=== PATIENT | male | born 1950 | race Caucasian/White ===

== ENCOUNTER 2016-10-05 20:55 | Inpatient (IN) | payer OTHER ==
[2016-10-05 21:17] VITALS: BMI 25.7
--- NOTE | 2016-10-05 21:47 | PDOC ---
History of Present Illness - General History Source: Patient, Family Exam Limitations: No Limitations - History of Present Illness Initial Comments: 10/05/16 22:06 The patient is a 66 year old male with a significant past medical history of diabetes, hypertension, stents and pacemaker, presenting to the Emergency Department with right sided facial numbness for two days. The patients daughter reports that the patient started experiencing numbness to the right side. She reports that she noticed a right side facial droop when speaking to him today. She also reports that the patient states that food gets stuck in his right cheek when eating. The patients daughter admits that he was diagnosed with Pen[place] Palsy about 5 years ago. The patient denies right sided extremity weakness. Patient denies blurry vision , or visual changes. Patient denies headache, dizziness, and syncope. Patient denies numbness or tingling to the extremities. Patient denies nausea, vomiting , and diarrhea. Patient denies cough, fever, and chills. <Michelle Claire - Last Filed: 10/06/16 00:18> <Ludivina Abreu - Last Filed: 10/07/16 04:07> - General Chief Complaint: CVA/TIA Stated Complaint: RT SIDE FACE NUMB Time Seen by Provider: 10/05/16 21:35 Past History <Michelle Claire - Last Filed: 10/06/16 00:18> - Past Medical History Anemia: Yes Asthma: No Cancer: No Cardiac Disorders: No (UNSURE IF HAS STENT, HAS HAD CARD CATH) CVA: No COPD: No CHF: No Dementia: No Diabetes: Yes GI Disorders: No Disorders: No HTN: Yes Hypercholesterolemia: Yes Liver Disease: No Seizures: No Thyroid Disease: No - Surgical History Abdominal Surgery: No Appendectomy: No Cardiac Surgery: No (CARD CATH TIMES TWO ? STENT) Cholecystectomy: No Lung Surgery: No Neurologic Surgery: No Orthopedic Surgery: No - Psycho/Social/Smoking Cessation Hx Suicidal Ideation: No Smoking History: Never smoked Have you smoked in the past 12 months: No Information on smoking cessation initiated: No Hx Alcohol Use: No Drug/Substance Use Hx: No Substance Use Type: None Hx Substance Use Treatment: No <Ludivina Abreu - Last Filed: 10/07/16 04:07> - Past Medical History Allergies/Adverse Reactions: Allergies Allergy/AdvReac Type Severity Reaction Status Date / Time No Known Drug Allergies Allergy Verified 10/05/16 20:57 Home Medications: Ambulatory Orders Aspirin [ASA -] 81 mg PO DAILY 10/06/16 Fludrocortisone Acetate 0.1 mg PO BID 10/06/16 Insulin Glargine,Hum.rec.anlog [Lantus Solostar PEN (NF)] 40 units SQ HS Linagliptin [Tradjenta] 5 mg PO ONCE 10/06/16 Rosuvastatin Calcium [Crestor] 40 mg PO HS 10/06/16 Tamsulosin HCl [Flomax] 0.4 mg PO ONCE 10/06/16 Review of Systems - Review of Systems Able to Perform ROS?: Yes Comments:: 10/05/16 22:06 GENERAL/CONSTITUTIONAL: No fever or chills. No weakness. HEAD, EYES, EARS, NOSE AND THROAT: + right sided facial numbness, + right sided facial droop. No change in vision. No ear pain or discharge. No sore throat. CARDIOVASCULAR: No chest pain or shortness of breath. RESPIRATORY: No cough, wheezing, or hemoptysis. GASTROINTESTINAL: No nausea, vomiting, diarrhea or constipation. GENITOURINARY: No dysuria, frequency, or change in urination. MUSCULOSKELETAL: No joint or muscle swelling or pain. No neck or back pain. SKIN: No rash NEUROLOGIC: No headache, vertigo, loss of consciousness, or change in strength/ sensation to extremities. ENDOCRINE: No increased thirst. No abnormal weight change. HEMATOLOGIC/LYMPHATIC: No anemia, easy bleeding, or history of blood clots. ALLERGIC/IMMUNOLOGIC: No hives or skin allergy. <Michelle Claire - Last Filed: 10/06/16 00:18> *Physical Exam - Vital Signs Last Vital Signs Temp Pulse Resp BP Pulse Ox 97.4 F L 69 20 171/90 100 10/05/16 21:14 10/05/16 21:14 10/05/16 21:14 10/05/16 21:14 10/05/16 21:14 - Physical Exam Comments: 10/05/16 22:07 GENERAL: Awake, alert, and fully oriented, in no acute distress HEAD: No signs of trauma EYES: PERRLA, EOMI, sclera anicteric, conjunctiva clear ENT: Auricles normal inspection, hearing grossly normal, nares patent, oropharynx clear without exudates. Moist mucosa NECK: Normal ROM, supple, no lymphadenopathy, JVD, or masses LUNGS: Breath sounds equal, clear to auscultation bilaterally. No wheezes, and no crackles HEART: Regular rate and rhythm, normal S1 and S2, no murmurs, rubs or gallops ABDOMEN: Soft, nontender, normoactive bowel sounds. No guarding, no rebound. No masses EXTREMITIES: Normal range of motion, no edema. No clubbing or cyanosis. No cords, erythema, or tenderness NEUROLOGICAL: Right sided cranial nerve 7 paralysis. Alert, awake, appropriate. Cranial nerves 2-6, 8-12 intact. No deficits to light touch upper extremities and lower extremities. No motor deficits in the in upper extremities and lower extremities. No deficits to left side face. Toes are down-going bilaterally. Normal heel to gomez SKIN: Warm, Dry, normal turgor, no rashes or lesions noted. <Michelle Claire - Last Filed: 10/06/16 00:18> - Vital Signs Last Vital Signs Temp Pulse Resp BP Pulse Ox 97.4 F L 69 20 171/90 100 10/05/16 21:14 10/05/16 21:14 10/05/16 21:14 10/05/16 21:14 10/05/16 21:14 <Ludivina Abreu - Last Filed: 10/07/16 04:07> ED Treatment Course - LABORATORY CBC & Chemistry Diagram: 10/05/16 22:00 10/05/16 22:00 - RADIOLOGY Radiograph Interpretation: 10/05/16 21:[address] As reviewed by Dr. Deirdre Heredia IMPRESSION: No evidence of acute intracranial abnormality demonstrated. There is no CT evidence of acute cortical territorial infarction, bleed, mass lesion, mass effect, hydrocephalus or abnormal extraaxial collection. No acute sinusitis or mastoiditis is identified. There are atherosclerotic calcifications of the skull base distal internal carotid arteries and the distal vertebral arteries. No acute skull fracture or calvarial lesion is noted. <Michelle Claire - Last Filed: 10/06/16 00:18> - LABORATORY CBC & Chemistry Diagram: 10/06/16 06:30 10/06/16 06:30 - RADIOLOGY Radiology Studies Ordered: Category Date Time Status HEAD CT (STROKE) [CT] Stat CT Scan 10/05/16 21:20 Taken <Ludivina Abreu - Last Filed: 10/07/16 04:07> Medical Decision Making - Medical Decision Making 10/07/16 04:03 PT COMES WITH ELEVATED BP; HE HAS ELEVATED TROPONIN A RESULT OF THIS. PT IS NONCOMPLIANT WITH HIS MEDS. HE LIVES ALONE AND IT IS UNCLEAR IF HE IS TAKING HIS MEDS PROPERLY. HE REFUSES TO TAKE BP MEDS. PT RESPONDS IMMEDIATELY TO NITRO AND HE RESPONDS WELL TO HCTZ AND VASOTEC. HE ALSO COMES WITH RIGHT FACIAL DROOP; HOWEVER IT SEEMS TO BE THE ENTIRE CN7 NERVE AREA; FOREHEAD ON RIGHT SIDE DOESN'T WRINKLE. 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 HE WILL BE ADMITTED TO TELEETRY ON ACCOUNT OF HIS ELEVATED TROPONIN. HOSPITALIST IS AWARE OF THE ADMISSION. <Ludivina Abreu - Last Filed: 10/07/16 04:07> *DC/Admit/Observation/Transfer - Attestations Scribe Attestion: 10/05/16 22:10 Documentation prepared by Michelle Claire, acting as medical administrative for Ludivina Abreu MD. <Michelle Claire - Last Filed: 10/06/16 00:18> - Discharge Dispostion Admit: Yes <Ludivina Abreu - Last Filed: 10/07/16 04:07> Diagnosis at time of Disposition: Facial numbness, Hypertensive emergency - Discharge Dispostion Condition at time of disposition: Guarded
[2016-10-05] MEDS ORDERED: valACYclovir HCL 500 MG TABLET (FP) PO ONE (22:04)
[2016-10-05] MEDS ORDERED: predniSONE 20 MG TABLET (UD) PO ONE (22:05)
[2016-10-05 22:06] LABS: BASOPHIL 0.5 % (0-2.0); EOSINOPHIL 2.9 % (0-4.5); MCH 32.3 pg (25.7-33.7); MCHC 34.5 g/dl (32.0-35.9); MEAN CELL VOLUME 93.6 fl (80-96); MEAN PLT VOLUME 7.6 fl (7.5-11.1); NEUTROPHILS 54.9 % (42.8-82.8); PLATELET COUNT 178 K/MM3 (134-434); RDW 12.2 % (11.9-15.9); WHITE BLOOD COUNT 9.1 K/mm3 (4.0-10.0)
[2016-10-05] MEDS ORDERED: HYDROCHLOROTHIAZIDE 50 MG TABLET PO ONE (22:06)
[2016-10-05] MEDS ORDERED: predniSONE 20 MG TABLET (UD) ONE (22:10)
[2016-10-05] MEDS ORDERED: HYDROCHLOROTHIAZIDE 25 MG TABLET (FP) ONE (22:19)
[2016-10-05] MEDS ORDERED: ENALAPRIL MALEATE 5 MG TABLET (FP) ONE (22:33)
[2016-10-05] MEDS ORDERED: ENALAPRIL MALEATE 10 MG TABLET (FP) PO ONE (22:35)
[2016-10-05 22:46] LABS: INR 0.96 (0.82-1.09); PROTHROMBIN TIME (PATIENT) 10.6 SEC (9.98-11.88)
[2016-10-05 22:56] LABS: ALBUMIN 3.8 g/dl (3.4-5.0); CALCIUM 8.3 mg/dL (8.5-10.1); COCKROFT - GAULT 32.8; CREATININE 2.7 mg/dL (0.7-1.3)
[2016-10-05 23:00] LABS: BILIRUBIN,TOTAL 0.3 mg/dL (0.2-1.0); TOT PROT 7.5 g/dl (6.4-8.2); TROPONIN I 0.23 ng/ml (0.00-0.05)
--- NOTE | 2016-10-06 00:41 | HP ---
Admitting History and Physical - Admission Chief Complaint: facial numbness History of Present Illness: 66 yo m w hx of orthostatic hypotension dm, cad, bells palsy presented to the ER for facial weakness. patient' daughter at bedside and provided most of hx. patient states that 2-3 days he had pocketing of food in R side of mouth. today his family noticed R sided weakness and he reports he experience numbness. He is unable to recall timing of event today. He denies syncope, dysarthria, ataxia , double vision, urinary incontinence, nausea, vomiting, cp, heart palps, sob, leg edema, fevers, chills, diarrhea, flaccidity. ER course: 1) Given enalapril, valacyclovir and steroids pmh/psh- dm, cad, bells palsy(2005), PPM/ICD(2016), cardiac stent(2007), diabetic retinopathy/nephropathy, CKD, legal blindness, HLP, cardiac ablation, orthostatic hypotension social- , denies rec drugs, tobacco, alcohol famhx- dad- ?TB PCP-Dr. Dyan France- Nephro- Previously Dr. Virgen-- [facility] Ros neg except for hpi Physical gen- in nad, alert hent- at/nc, mike, eomi, neck supple, trachea mid-line, no thyromegaly resp- lungs ctab, no cough, no wheeze, no ronchi cards- s1s2 heard, no JVD, extremity pulses palpable, +carotid bruit skin- no erythema, no lesions psych- cooperative, no agitation, normal affect neuro- cn2-6 8-12 grossly intact, no leg/arm drift b/l, no dysdiachokinesia, no ftn ataxia, light sensation intact, no fasiculations, toes down going b/l, speech clear, no seizures gi- soft non-tender, no guarding, no rebound, no distention, no masses musk- muscle strength 5/5 bue/ble, no back pain Prob list facial weakness elevated trop orthostatic hypotension cad bells palsy dm hypoglycemia ppm/icd afib hlp Imaging: CTH IMPRESSION: No evidence of acute intracranial abnormality demonstrated. There is no CT evidence of acute cortical territorial infarction, bleed, mass lesion, mass effect, hydrocephalus or abnormal extraaxial collection. No acute sinusitis or mastoiditis is identified. There are atherosclerotic calcifications of the skull base distal internal carotid arteries and the distal vertebral arteries. No acute skull fracture or calvarial lesion is noted. CXR reviewed ecg reviewed- nsr, L anterior fasiccular block, L ventricular hypertrophy w repolarizationi abnormality, qrs 112, pr 204, qrs 450, twi inv5,v6 a/p- 66 yo m w hx of htn, dm, cad, bells palsy, PPM/ICD, cardiac stent, diabetic retinopathy/nephropathy, CKD, afib, legal blindness, HLP, cardiac ablation, orthostatic hypotension presented to the ER for facial weakness admitted for evaluation of their emergent condition 1. Facial weakness ? bells palsy ?TIA/CVA most likely peripheral as he has forehead weakness in addition to facial weakness on exam, no other focal deficits ct neg for acute process Troponin elevated neuro checks fu tsh, lipids, a1c fu echo, cus cardiac tele cards consult neuro consult 2. Elevated trop ?nstemi Denies sob, CP No LUCIUS/STD on ECG but ischemic changes present Maybe demand ischemia as B/P elevated in ER or renal clearance issue Trend labs Cardiac tele FU cards FU echo echo 3. DM Fu BGM q 3hours Hold diabetic meds d/t hypoglycemia episode; resume meds once sugars stabilize FU a1c 4. Cad cont home meds 5. Orthostatic hypotension Continue fludrocortisone 6. Hypoglycemia ?meds Taking Lantus at home Given juice in ER w improvement to BG --> 90s Monitor bgm q 3hours 1/2ns D5W 7. Afib s/p PPM/ICD 8. CKD likely 2/2 diabetic nephropathy Monitor BMP 9. HLP Continue home meds 10. Elevated B/P(improved) Improved after Vasotec in the ER No home meds Monitor closely FEN: NPO IVF 1/2 ns D5w 42cc/hr DVT Prophy- oob, scds Dispo- admitted for elevated trop facial weakness evaluation. RN to update home meds in computer History Source: Patient, Family Member Limitations to Obtaining History: Language Barrier - Past Medical History Cardiovascular: Yes: HTN, Other (Pacemaker, Stents x2) Endocrine: Yes: Diabetes Mellitus - Past Surgical History Past Surgical History: Yes: None - Smoking History Smoking history: Never smoked Have you smoked in the past 12 months: No - Alcohol/Substance Use Hx Alcohol Use: No Home Medications - Allergies Allergies/Adverse Reactions: Allergies Allergy/AdvReac Type Severity Reaction Status Date / Time No Known Drug Allergies Allergy Verified 10/05/16 20:57 - Home Medications Home Medications: Ambulatory Orders Aspirin [ASA -] 81 mg PO DAILY 10/06/16 Fludrocortisone Acetate 0.1 mg PO BID 10/06/16 Insulin Glargine,Hum.rec.anlog [Lantus Solostar PEN (NF)] 80 units SQ HS Linagliptin [Tradjenta] 5 mg PO ONCE 10/06/16 Rosuvastatin Calcium [Crestor] 40 mg PO HS 10/06/16 Tamsulosin HCl [Flomax] 0.4 mg PO ONCE 10/06/16 Physical Examination Vital Signs: Vital Signs Temperature 97.4 F L 10/05/16 21:14 Pulse Rate 66 10/05/16 23:44 Respiratory Rate 18 10/05/16 23:44 Blood Pressure 157/88 10/05/16 23:44 O2 Sat by Pulse Oximetry (%) 99 10/05/16 23:44 Labs: CBC, BMP 10/05/16 22:00 10/05/16 22:00 Visit type - Emergency Visit Emergency Visit: Yes ED Registration Date: 10/06/16 Care time: The patient presented to the Emergency Department on the above date and was hospitalized for further evaluation of their emergent condition. - New Patient This patient is new to me today: Yes Date on this admission: 10/06/16 - Critical Care Critical Care patient: No
[2016-10-06] MEDS ORDERED: DEXTROSE 5%-0.45% SALINE 1,000 ML IV SCH (02:15)
[2016-10-06] MEDS ORDERED: TAMSULOSIN HCL 0.4 MG CAP.ER.24H (FP) PO ONE (03:15)
[2016-10-06] MEDS: TAMSULOSIN HCL 0.4 MG CAP.ER.24H (FP) PO SCH ×2 (04:10→07:28)
[2016-10-06 06:14] LABS: TROPONIN I 0.24 ng/ml (0.00-0.05)
[2016-10-06 06:46] LABS: BASOPHIL 0.1 % (0-2.0); EOSINOPHIL 0.1 % (0-4.5); MCH 32.5 pg (25.7-33.7); MEAN CELL VOLUME 92.9 fl (80-96); MEAN PLT VOLUME 7.8 fl (7.5-11.1); NEUTROPHILS 84.1 % (42.8-82.8); PLATELET COUNT 201 K/MM3 (134-434); RDW 12.3 % (11.9-15.9); WHITE BLOOD COUNT 6.9 K/mm3 (4.0-10.0)
[2016-10-06 07:11] LABS: BILIRUBIN,TOTAL 0.4 mg/dL (0.2-1.0); CALCIUM 8.4 mg/dL (8.5-10.1); COCKROFT - GAULT 34.06; CREATININE 2.6 mg/dL (0.7-1.3); TOT PROT 7.9 g/dl (6.4-8.2)
[2016-10-06 07:19] LABS: THYROID STIMULATING HORMONE 1.18 uIU/ml (0.358-3.74); TROPONIN I 0.25 ng/ml (0.00-0.05)
--- NOTE | 2016-10-06 08:40 | CON.NEURO ---
Consult Consult Specialty:: Neurology - History of Present Illness History of Present Illness: 66 yo m w hx of orthostatic hypotension/PCM/stent, dm/nephropathy, cad, bells palsy x 5 yrs ago , presented to the ER for facial weakness. patient' daughter at bedside and provided most of hx. patient states that 2-3 days he had pocketing of food in R side of mouth. family noticed R sided weakness and he reports he experience numbness, though he himself is not endorsing this. He denies focal weakness/numbness, slurred speech. Occasional Brown. did not qualify for TPA given HX suggestive old [place], and no new focality on exam. + elevated BP as per ER nurse, admitted to tele - History Source History Provided By: Patient, Medical Record - Past Medical History Cardio/Vascular: Yes: HTN, Other (Pacemaker, Stents x2) Endocrine: Yes: Diabetes Mellitus - Past Surgical History Past Surgical History: Yes: None - Alcohol/Substance Use Hx Alcohol Use: No - Smoking History Smoking history: Never smoked Have you smoked in the past 12 months: No Home Medications - Allergies Allergies/Adverse Reactions: Allergies Allergy/AdvReac Type Severity Reaction Status Date / Time No Known Drug Allergies Allergy Verified 10/05/16 20:57 - Home Medications Home Medications: Ambulatory Orders Aspirin [ASA -] 81 mg PO DAILY 10/06/16 Fludrocortisone Acetate 0.1 mg PO BID 10/06/16 Insulin Glargine,Hum.rec.anlog [Lantus Solostar PEN (NF)] 80 units SQ HS Linagliptin [Tradjenta] 5 mg PO ONCE 10/06/16 Rosuvastatin Calcium [Crestor] 40 mg PO HS 10/06/16 Tamsulosin HCl [Flomax] 0.4 mg PO ONCE 10/06/16 Physical Exam-Neuro Vital Signs: Vital Signs Temperature 98.0 F 10/06/16 07:19 Pulse Rate 80 10/06/16 07:19 Respiratory Rate 18 10/05/16 23:44 Blood Pressure 126/62 10/06/16 07:19 O2 Sat by Pulse Oximetry (%) 98 10/06/16 07:19 Constitutional: Yes: Well Nourished, No Distress Neck: Yes: WNL, Supple Respiratory: Yes: CTA Bilaterally Gastrointestinal: Yes: Normal Bowel Sounds Labs: CBC, BMP 10/06/16 06:30 10/06/16 06:30 INR, PTT INR 0.96 (0.82-1.09) 10/05/16 22:00 - Neuro Exam Level Of Consciousness: Yes: Alert, Oriented to Person Eyes: Yes: Other (legally blind, EOMI, mild R facial, no dysrthria , no focal weakness, no drift, sesneory intact to LT, reflexes symmetric and plantars down ) NIH Stroke Scale - Last Known Well Date/Time & Onset Symptom Onset Date: 10/06/16 - Initial Evaluation Level of consciousness: Alert Ask patient the month & their age: Answers Both Correctly Ask Patient to open & close eyes; make fist and let go.: Obeys Both Correctly Best gaze (horizontal eye movement): Normal Visual Field Testing: No Visual Loss Facial Palsy(Show teeth or raise eyebrows & close eyes: Minor Paralysis ( Flattened nasolabial fold, asymmetry on smiling). Motor Function - Left Arm: No Drift;extends limb 90 (or siting 45) degress & hold full 10 seconds Motor Function - Right Arm: No Drift;extends limb 90 (or siting 45) degress & hold full 10 seconds Motor Function - Left Leg: No Drift; leg holds 30 degree position for full 5 seconds. Motor Function - Right Leg: No Drift; leg holds 30 degree position for full 5 seconds. Limb Ataxia: Absent (also used for the pt who does not understand or paralyzed) Sensory (arms, legs, trunk, face): Normal; no sensory loss Best Language: No Aphasia; normal Dysarthria/Articulation: Normal Extinction and Inattention: No abnormality - Total Score NIH Stroke Scale Score: 1 Imaging - Results Cat Scan: Report Reviewed Problem List - Problems (1) Facial numbness Code(s): R20.0 - ANESTHESIA OF SKIN (2) Hypertensive emergency Code(s): I16.1 - HYPERTENSIVE EMERGENCY Assessment/Plan 66 yo m w hx of dm, cad, bells palsy(2005), PPM/ICD(2016), cardiac stent(2007), diabetic retinopathy/nephropathy, CKD, cad, bells palsy presented to the ER for facial weakness / ? worse from prior as he had residual weakness from [place], as per family ? right sided weakness/ numbness though he does not endorse this. ? compliance with home meds. Only mild right facial seen on exam. Doubt this was new ischemic cerebral event (unable to get MRI given pacemaker), ? transient neuro sx from elevated BP vs TIA ; -check DOPPLER, echo, card FU on pacemaker rhythm -maintain ASA, statin and can pursue BP control -check A1c, TSh , lipids neurology will FU Dr Tavarez [phone]
[2016-10-06 08:45] LABS: URINE APPEARANCE CLEAR; URINE BILIRUBIN NEGATIVE (NEGATIVE); URINE BLOOD NEGATIVE (NEGATIVE); URINE COLOR STRAW; URINE GLUCOSE (UA) 1+ (NEGATIVE); URINE KETONE NEGATIVE (NEGATIVE); URINE LEUK ESTERASE NEGATIVE (NEGATIVE); URINE NITRITE NEGATIVE (NEGATIVE); URINE UROBILINOGEN NEGATIVE E.U./dl (0.2-1.0)
[2016-10-06 08:59] LABS: URINE PROTEIN 1+ (NEGATIVE)
[2016-10-06 09:01] LABS: URINE MUCUS RARE; URINE WBC <1 /hpf (3-5)
[2016-10-06] MEDS: ASPIRIN 81 MG CHEWABLE TABLETS PO SCH (09:38)
[2016-10-06] MEDS ORDERED: FLUDROCORTISONE ACETATE 0.1 MG TABLET (FP) PO SCH (10:00)
[2016-10-06 12:42] LABS: TROPONIN I 0.21 ng/ml (0.00-0.05)
--- NOTE | 2016-10-06 16:02 | HOSP ---
Physical Examination Vital Signs: Vital Signs Temperature 97.9 F 10/06/16 13:27 Pulse Rate 82 10/06/16 15:02 Respiratory Rate 17 10/06/16 15:02 Blood Pressure 147/82 10/06/16 15:02 O2 Sat by Pulse Oximetry (%) 98 10/06/16 15:02 Findings/Remarks: Subjective: The patient was seen and examined at the bedside, he denies any chest pain, headache. He states right facial numbness. Right facial droop on exam Current Medications Generic Name Dose Route Start Last Admin Trade Name Lani PRN Reason Stop Dose Admin Amlodipine Besylate 5 mg 10/06/16 17:45 10/06/16 17:49 Norvasc - PO 5 mg DAILY JEREMY Administration Aspirin 81 mg 10/06/16 10:00 10/06/16 09:38 Asa - PO 81 mg DAILY JEREMY Administration Insulin Aspart 1 vial 10/06/16 16:30 10/06/16 16:44 Novolog Vial Sliding Scale - SQ 4 units ACHS JEREMY Administration Protocol Insulin Detemir 40 units 10/06/16 22:00 Levemir Vial SQ HS JEREMY Prednisone 60 mg 10/06/16 22:00 Deltasone - PO DAILY@2200 JEREMY Rosuvastatin Calcium 40 mg 10/06/16 22:00 Crestor - PO HS JEREMY Objective: Vital Signs Period Temp Pulse Resp BP Sys/Alva Pulse Ox Last 24 Hr 97.4 F-98.0 F 66-84 13-20 124-191/62-98 98-100 Physical Exam: General: NAD, A&Ox3 Lungs: CTA bilaterally Heart: RRR, S1S2 Abd: Soft, non-tender, non-distended. Normoactive bowel sounds Ext: Warm, well-perfused. 2+ DP/PT bilaterally Neuro: Right facial droop. Right forehead with decreased wrinkles. Able to lift eyebrows L>R. Unable to close right eye tightly and not allow me to open it. B/ l upper and lower extremities with 5/5 muscle strength CBCD WBC 6.9 K/mm3 (4.0-10.0) 10/06/16 06:30 RBC 3.70 M/mm3 (4.00-5.60) L 10/06/16 06:30 Hgb 12.0 GM/dL (11.7-16.9) 10/06/16 06:30 Hct 34.4 % (35.4-49) L 10/06/16 06:30 MCV 92.9 fl (80-96) 10/06/16 06:30 MCHC 35.0 g/dl (32.0-35.9) 10/06/16 06:30 RDW 12.3 % (11.9-15.9) 10/06/16 06:30 Plt Count 201 K/MM3 (134-434) 10/06/16 06:30 MPV 7.8 fl (7.5-11.1) 10/06/16 06:30 CMP Sodium 137 mmol/L (136-145) 10/06/16 06:30 Potassium 4.4 mmol/L (3.5-5.1) 10/06/16 06:30 Chloride 105 mmol/L (98-107) 10/06/16 06:30 Carbon Dioxide 22 mmol/L (21-32) 10/06/16 06:30 Anion Gap 10 (8-16) 10/06/16 06:30 BUN 48 mg/dL (7-18) H 10/06/16 06:30 Creatinine 2.6 mg/dL (0.7-1.3) H 10/06/16 06:30 Creat Clearance w eGFR 24.82 (>60) 10/06/16 06:30 Random Glucose 230 mg/dL (74-106) H D 10/06/16 06:30 Calcium 8.4 mg/dL (8.5-10.1) L 10/06/16 06:30 Total Bilirubin 0.4 mg/dL (0.2-1.0) D 10/06/16 06:30 AST 35 U/L (15-37) 10/06/16 06:30 ALT 31 U/L (12-78) 10/06/16 06:30 Alkaline Phosphatase 138 U/L (45-117) H 10/06/16 06:30 Total Protein 7.9 g/dl (6.4-8.2) 10/06/16 06:30 Albumin 4.0 g/dl (3.4-5.0) 10/06/16 06:30 CARDIAC ENZYMES Creatine Kinase 147 IU/L (39-308) 10/06/16 11:52 Troponin I 0.21 ng/ml (0.00-0.05) H 10/06/16 11:52 Assessment: This is a 66 year old male with PMHx of DM, CAD s/p cardiac stent ( 2007), PPM/ICD (2016), Jaime's palsy, diabetic retinopathy/nephropathy, CKD, legal blindness, hyperlipidemia, orthostatic hypotension who presented to the ED with right facial droop. Plan: 1) Right facial droop - Jaime's palsy vs. TIA vs. CVA - CT head with no acute intracranial pathology - Per exam, likely mild Jaime's palsy, forehead affected - Will continue Prednisone with close monitoring of blood sugars (hold Fludrocortisone while on prednisone) - Will hold off on giving Valacyclovir as recommended by Dr. Tavarez (patient's CrCl is 34, unknown baseline renal function, symptoms of Jaime's palsy mild-mod) - BP control, elevated in the ED, now rising. Will start Norvasc 5mg po daily. Hold in AM if BP normalizes - F/u ECHO - F/u carotid dopplers - F/u lipid panel - Unable to perform MRI 2/2 pacemaker - Pacemaker interrogation - Appreciate cardiology consult 2) Elevated troponins - Trended down - No evidence of ACS, patient denies anginal symptoms, EKG without ST elevations - Discussed with Dr. 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 Virgen - Avoid all nephrotoxic agents 4) F/E/N: - Monitor electrolytes - Diabetic diet 5) Prophylaxis: - OOB ambulating - SCDs bilaterally - Heparin 5,000u sq tid 6) Dispo: - Once condition improves CODE STATUS: FULL CODE Labs: CBC, BMP 10/06/16 06:30 10/06/16 06:30
[2016-10-06] MEDS ORDERED: INSULIN REGULAR HUMAN 100 UNITS/ML *VIAL ONE (16:38)
[2016-10-06] MEDS: INSULIN SLIDING SCALE (NOVOLOG) 1 VIAL SQ SCH ×2 (16:44→22:13)
[2016-10-06] MEDS ORDERED: amLODIPine BESYLATE 5 MG TABLET (FP) ONE (17:48)
[2016-10-06] MEDS: amLODIPine BESYLATE 5 MG TABLET (FP) PO SCH (17:49)
--- NOTE | 2016-10-06 19:39 | CONSULT ---
Consult - text type - Consultation Consultation Note: Cardiology 66 yo m w hx of orthostatic hypotension dm, cad, bells palsy presented to the ER for facial weakness. Patient states that 2-3 days he had pocketing of food in R side of mouth. today his family noticed R sided weakness and numbness. Does not seem to have any cardiac symptoms. Pmh / Psh- dm, cad, bells palsy(2005), PPM/ICD(2016), cardiac stent(2007), diabetic retinopathy/nephropathy, CKD, legal blindness, HLP, cardiac ablation, orthostatic hypotension CAD, PCI, pacemaker/ICD trying to locate EKG borderline troponins; seems stable from cardiac standpoint, NSTEMI improbable Further cardiac evaluation and follow-up to continue CRF Rec: continue current meds heparin infusion, if neurology allows Persantine nuclear stress test when stable troponins, EKG and Echocardiogram am
[2016-10-06] MEDS ORDERED: valACYclovir HCL 500 MG TABLET (FP) PO SCH (22:00)
[2016-10-06] MEDS: INSULIN DETEMIR 100 UNITS/ML MDV SQ SCH (22:16)
[2016-10-06] MEDS: ROSUVASTATIN CA 20 MG TABLET (FP) PO SCH (22:17)
[2016-10-06] MEDS: predniSONE 20 MG TABLET (UD) PO SCH (22:18)
[2016-10-07] MEDS: INSULIN SLIDING SCALE (NOVOLOG) 1 VIAL SQ SCH ×4 (06:21→22:03)
[2016-10-07 08:37] LABS: ALBUMIN 4.2 g/dl (3.4-5.0); CALCIUM 9.1 mg/dL (8.5-10.1)
[2016-10-07 08:40] LABS: BILIRUBIN,TOTAL 0.4 mg/dL (0.2-1.0); COCKROFT - GAULT 34.06; CREATININE 2.6 mg/dL (0.7-1.3); TOT PROT 7.9 g/dl (6.4-8.2)
[2016-10-07 08:51] LABS: TROPONIN I 0.21 ng/ml (0.00-0.05)
--- NOTE | 2016-10-07 08:54 | PN ---
Progress Note, Physician Chief Complaint: Right facial weakness History of Present Illness: Several days of right facial weakness, noticed more by family than patient, though patient says that he thinks that he is better. - Current Medication List Current Medications: Active Medications Amlodipine Besylate (Norvasc -) 5 mg PO DAILY [facility] Last Admin: 10/06/16 17:49 Dose: 5 mg Aspirin (Asa -) 81 mg PO DAILY [facility] Last Admin: 10/06/16 09:38 Dose: 81 mg Insulin Aspart (Novolog Vial Sliding Scale -) 1 vial SQ [facility] PRN Reason: Protocol Last Admin: 10/07/16 06:21 Dose: 2 units Insulin Detemir (Levemir Vial) 40 units SQ [facility] Last Admin: 10/06/16 22:16 Dose: 40 units Prednisone (Deltasone -) 60 mg PO DAILY@2200 [facility] Last Admin: 10/06/16 22:18 Dose: 60 mg Rosuvastatin Calcium (Crestor -) 40 mg PO [facility] Last Admin: 10/06/16 22:17 Dose: 40 mg - Objective Vital Signs: Vital Signs Temperature 97.9 F 10/07/16 05:25 Pulse Rate 75 10/07/16 05:25 Respiratory Rate 18 10/07/16 05:25 Blood Pressure 133/77 10/07/16 05:25 O2 Sat by Pulse Oximetry (%) 97 10/07/16 01:00 Neurological: Yes: Other (reduced right nasolabial fold, and upon smiling, he has peripheral pattern, mild right facial palsy, with weak upper and lower facial musculature.) Labs: CBC, BMP 10/06/16 06:30 10/07/16 06:18 INR, PTT INR 0.96 (0.82-1.09) 10/05/16 22:00 - ....Imaging Cat Scan: Report Reviewed (small vessel ischemic disease) Ultrasound: Report Reviewed (mild to moderate carotid stenosis) Problem List - Problems (1) Castaneda's palsy Assessment/Plan: Mild, but subjectively improving. Likely gradual improvement over time. Would f/u with cardiac workup as outlined in Dr. Tavarez's note. Code(s): G51.0 - CASTANEDA'S PALSY (2) Carotid arterial disease Assessment/Plan: Mild to moderate stenosis, while not quantified, this is not usually descriptor for 70% stenosis and he is not currently symptomatic. I would however suggest repeat studies in 6-12 months as outpatient. Upon discharge, he'll need to continue to f/u with us. Code(s): I77.9 - DISORDER OF ARTERIES AND ARTERIOLES, UNSPECIFIED
[2016-10-07] MEDS: ASPIRIN 81 MG CHEWABLE TABLETS PO SCH (09:46)
[2016-10-07] MEDS: amLODIPine BESYLATE 5 MG TABLET (FP) PO SCH (09:46)
[2016-10-07] MEDS ORDERED: amLODIPine BESYLATE 5 MG TABLET (FP) PO SCH (10:00)
--- NOTE | 2016-10-07 11:04 | EKG ---
Test Reason : Blood Pressure : / mmHG Vent. Rate : 080 BPM Atrial Rate : 080 BPM P-R Int : 200 ms QRS Dur : 130 ms QT Int : 416 ms P-R-T Axes : 051 -54 117 degrees QTc Int : 479 ms SINUS RHYTHM WITH OCCASIONAL PREMATURE VENTRICULAR COMPLEXES LEFT AXIS DEVIATION LEFT VENTRICULAR HYPERTROPHY WITH QRS WIDENING INFERIOR INFARCT , AGE UNDETERMINED T WAVE ABNORMALITY, CONSIDER LATERAL ISCHEMIA ABNORMAL ECG WHEN COMPARED WITH ECG OF 05-OCT-2016 21:19, PREMATURE VENTRICULAR COMPLEXES ARE NOW PRESENT Confirmed by JAREK CAVAZOS MD ([id number]) on 10/07/2016 11:04:01 AM Referred By: MYRIAM PEREIRA Confirmed By:JAREK CAVAZOS MD
[2016-10-07] MEDS ORDERED: INSULIN (NOVOLOG) ASPART 100 UNITS/ML 10ML VIAL ONE (11:58)
--- NOTE | 2016-10-07 12:08 | CONSULT ---
Admitting History and Physical - Primary Care Physician PCP: Shana Moore - Admission History of Present Illness: Per EMR: "Right facial droop - Jaime's palsy vs. TIA vs. CVA - CT head with no acute intracranial pathology - Per exam, likely mild Jaime's palsy, forehead affected" History Source: Patient, Family Member Limitations to Obtaining History: No Limitations, Language Barrier - Past Medical History Cardiovascular: Yes: HTN, Other (Pacemaker, Stents x2) Endocrine: Yes: Diabetes Mellitus - Past Surgical History Past Surgical History: Yes: None - Smoking History Smoking history: Never smoked Have you smoked in the past 12 months: No - Alcohol/Substance Use Hx Alcohol Use: No History - Admission Reason For Visit: FACIAL NUMBNESS, HYPERTENSIVE - Diagnostics X-ray: Report Reviewed CT Scan: Report Reviewed MRI: Report Reviewed - General Mental Status: Alert and Oriented, Awake and Alert, Able to Follow Commands Attention: Intact Ability to Follow Directions: Excellent Head/Neck Control: WFL - Hearing Hearing: Normal Hearing Aide: No With Patient: No Speech Evaluation - Communication Primary Language: ITALIAN Communication: Yes: Within Normal Limits Oral Expression Ability: Yes: No Impairment - Speech Production Able to Make Needs Known: Yes: WNL Intelligibility: Yes: WNL - Speech Characteristics Voice Loudness: Normal Voice Pitch: Yes: Normal Voice Phonatory-based Quality: Yes: Normal Speech Pattern: Normal Speech Clarity: < 100% Nasal Resonance: Normal Articulation: Yes: Precise Rate of Speech: Intact - Language/Auditory Comprehension Follows: Yes: Complex Commands Observation: Able to respond to yes/no queries: Yes, Yes/No Confusion: No - Language/Verbal Expression Able to Respond to Simple Queries: Yes: WNL Able to Communicate Wants and Needs: Yes: WNL Functional Communication Status: Yes: WNL - 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: WNL Short Term Memory: Yes: WNL - Swallow Evaluation/Bedside Assessment Current Nutritional Intake: Regular Oral Secretions: Yes: WFL Dentition: Yes: Adequate Facial Symmetry at Rest: Facial Droop Right Facial Symmetry on Retraction: Facial Droop Right Against Resistance Opening: Normal Against Resistance Closing: Normal Pucker Lips: Droops Right Smile: Droops Right Lingual Movement: Normal, Symmetric Lingual Speed of Movement: Normal Lingual Movement Strgth Against Opposition: Normal Lingual Movement Characteristics: Normal Velopharyngeal Movement: Normal Laryngeal Elevation: WFL Laryngeal Movement: Able to Palpate Rate of Intake: WFL Bolus Size: WFL Labial Seal: WFL Chewing: WFL Oral Prep Time: WFL A-P Transit: WFL Pocketing: None Timing of Swallow: WFL Coughing/Throat Clear: No Change in Voice: No Recommendations - Speech Evaluation, Impression/Plan Impression: Right facial weakness. Speech/language/swallowing overtly intact.Language barrier. Etiology w/u in progress. Jaime's palsy suspected. - Dysphagia Impressions/Plan Swallowing Skills: WF Dysphagia Impressions: No Impairment *Silent aspiration: cannot be R/O at bedside - Recommendations Diet Consistency: Regular Medication Administration: Whole with water Liquids: Thin Liquids
--- NOTE | 2016-10-07 12:15 | EKG ---
Test Reason : Blood Pressure : / mmHG Vent. Rate : 069 BPM Atrial Rate : 069 BPM P-R Int : 204 ms QRS Dur : 112 ms QT Int : 420 ms P-R-T Axes : 040 -50 111 degrees QTc Int : 450 ms NORMAL SINUS RHYTHM LEFT ANTERIOR FASCICULAR BLOCK LEFT VENTRICULAR HYPERTROPHY WITH REPOLARIZATION ABNORMALITY ABNORMAL ECG WHEN COMPARED WITH ECG OF 24-JAN-2015 16:37, NO SIGNIFICANT CHANGE WAS FOUND Confirmed by SERVANDO KAPADIA MD ([id number]) on 10/07/2016 12:15:29 PM Referred By: Confirmed By:SERVANDO KAPADIA MD
--- NOTE | 2016-10-07 15:41 | PN ---
Physical Exam: SUBJECTIVE: Patient seen and examined. He says he having trouble moving the food out from the right side of his cheek. On the whole, he feels better, still numbness to R side of face. OBJECTIVE: Vital Signs Period Temp Pulse Resp BP Sys/Alva Pulse Ox Last 24 Hr 97.5 F-98.2 F 71-110 17-20 87-164/65-99 97-99 PE Neuro: alert, awake, R sided numbness, asymmetrical smile, R eye unable to squeeze shut, forehead dose not wrinkle sensation L>R HEENT: tongue with full rom Pulm: CTAB CV: s1 s2 rrr no mrg Abd: s nt nd + bs Ext: warm, no le edema Laboratory Results - last 24 hr 10/07/16 10/07/16 10/07/16 05:37 06:18 06:18 Sodium 139 Potassium 4.6 Chloride 104 Carbon Dioxide 25 Anion Gap 10 BUN 53 H Creatinine 2.6 H Creat Clearance w eGFR 24.82 POC Glucometer 165 Random Glucose 162 H D Calcium 9.1 Total Bilirubin 0.4 AST 33 ALT 30 Alkaline Phosphatase 127 H Creatine Kinase 191 D Creatine Kinase Index 1.2 CK-MB (CK-2) 2.364 CK-MB (CK-2) Rel Index Troponin I 0.21 H Total Protein 7.9 Albumin 4.2 Triglycerides 85 Cholesterol 118 Total LDL Cholesterol 60 HDL Cholesterol 44 Active Medications Generic Name Dose Route Start Last Admin Trade Name Freq PRN Reason Stop Dose Admin Amlodipine Besylate 5 mg 10/06/16 17:45 10/07/16 09:46 Norvasc - PO 5 mg DAILY [facility] Administration Aspirin 81 mg 10/06/16 10:00 10/07/16 09:46 Asa - PO 81 mg DAILY [facility] Administration Insulin Aspart 1 vial 10/06/16 16:30 10/07/16 12:08 Novolog Vial Sliding Scale - SQ 6 units ACHS [facility] Administration Protocol Insulin Detemir 40 units 10/06/16 22:00 10/06/16 22:16 Levemir Vial SQ 40 units HS [facility] Administration Prednisone 60 mg 10/06/16 22:00 10/06/16 22:18 Deltasone - PO 60 mg DAILY@2200 [facility] Administration Rosuvastatin Calcium 40 mg 10/06/16 22:00 04/23/17 22:17 Crestor - PO 40 mg HS [facility] Administration Imaging: - CT head with no acute intracranial pathology - Carotid Dopplers mild to moderate carotid stenosis Assessment: 66 year old male with PMHx of DM, CAD s/p cardiac stent (2007), PPM/ ICD (2016), Jaime's palsy, diabetic retinopathy/nephropathy, CKD, legal blindness , hyperlipidemia, orthostatic hypotension admitted with right facial droop. Plan: 1. Jaime's Palsy - Continue prednisone 60mg daily, start taper tomorrow (total 1 week) - Hold on Valtrex for CKD and symptoms are not severe - ECHO results pending - Lipid panel noted - Unable to perform MRI 2/2 pacemaker - Pacemaker interrogation 2. HTN - Hx of orthostatic hypotension - Fludrocortisone on hold while on po steroids - Norvasc 5 daily 3. Elevated troponins - Repeat trop now - For nuclear stress tomorrow - Hold heparin for now - Discussed w/ Dr. Booth 4. 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 CAD s/p cardiac stent (2007) - Continue ASA - Continue Crestor 6. PPM/ICD - F/u interrogation 7. Hyperlipidemia - Continue crestor Visit type - Emergency Visit Emergency Visit: Yes ED Registration Date: 10/06/16 Care time: The patient presented to the Emergency Department on the above date and was hospitalized for further evaluation of their emergent condition. - New Patient This patient is new to me today: Yes Date on this admission: 10/07/16 - Critical Care Critical Care patient: No
[2016-10-07 18:17] LABS: TROPONIN I 0.18 ng/ml (0.00-0.05)
--- NOTE | 2016-10-07 18:46 | CONSULT ---
Consult - text type - Consultation Consultation Note: Cardiology 67 year old male DM, HTN, denies cardiac symptoms PE: vitals stable normal cardio-pulmonary exam abdomen soft no leg edema EKG NSR, ST depression, T inversions laterally Impression: Jaime's palsy CAD, PCI 2007, pacemaker 2016; borderline troponins ARF/CRF stable from cardiac standpoint Rec: Nuclear stress test Discharge if normal
[2016-10-07] MEDS ORDERED: INSULIN DETEMIR 100 UNITS/ML MDV SQ SCH (22:00)
[2016-10-07] MEDS: ROSUVASTATIN CA 20 MG TABLET (FP) PO SCH (22:02)
[2016-10-07] MEDS: predniSONE 20 MG TABLET (UD) PO SCH (22:02)
[2016-10-07] MEDS: INSULIN DETEMIR 100 UNITS/ML MDV SQ SCH (22:03)
[2016-10-08] MEDS: INSULIN SLIDING SCALE (NOVOLOG) 1 VIAL SQ SCH ×4 (07:00→21:45)
[2016-10-08 07:55] LABS: COCKROFT - GAULT 36.9; CREATININE 2.4 mg/dL (0.7-1.3)
[2016-10-08 07:57] LABS: TROPONIN I 0.21 ng/ml (0.00-0.05)
--- NOTE | 2016-10-08 08:19 | PN ---
Progress Note, Physician Chief Complaint: Right facial weakness History of Present Illness: Several days of right facial weakness, noticed more by family than patient, though patient says that he thinks that he is better. He has had little change overnight and continues to note progress. He is in the hospital today out of cardiac concerns. - Current Medication List Current Medications: Active Medications Amlodipine Besylate (Norvasc -) 5 mg PO DAILY [facility] Last Admin: 10/07/16 09:46 Dose: 5 mg Aspirin (Asa -) 81 mg PO DAILY [facility] Last Admin: 10/07/16 09:46 Dose: 81 mg Insulin Aspart (Novolog Vial Sliding Scale -) 1 vial SQ [facility] PRN Reason: Protocol Last Admin: 10/07/16 22:03 Dose: 2 units Insulin Detemir (Levemir Vial) 40 units SQ [facility] Last Admin: 10/07/16 22:03 Dose: 40 units Insulin Detemir (Levemir Vial) 8 units SQ [facility] Last Admin: 10/07/16 22:02 Dose: 8 units Prednisone (Deltasone -) 60 mg PO DAILY@2200 [facility] Stop: 10/08/16 23:59 Last Admin: 10/07/16 22:02 Dose: 60 mg Prednisone (Deltasone -) 50 mg PO DAILY@2200 [facility] Rosuvastatin Calcium (Crestor -) 40 mg PO [facility] Last Admin: 10/07/16 22:02 Dose: 40 mg - Objective Vital Signs: Vital Signs Temperature 97.8 F 10/08/16 07:51 Pulse Rate 68 10/08/16 07:51 Respiratory Rate 20 10/08/16 07:51 Blood Pressure 124/62 10/08/16 07:51 O2 Sat by Pulse Oximetry (%) 97 10/08/16 05:00 Neurological: Yes: Other (Right partial peripheral pattern VII nerve palsy) ...Motor Strength: WNL Labs: CBC, BMP 10/06/16 06:30 10/08/16 05:35 INR, PTT INR 0.96 (0.82-1.09) 10/05/16 22:00 Problem List - Problems (1) Castaneda's palsy Assessment/Plan: Mild, but subjectively improving. Likely gradual improvement over time. Would f/u with cardiac workup as outlined in Dr. Tavarez's note. Code(s): G51.0 - CASTANEDA'S PALSY (2) Carotid arterial disease Assessment/Plan: Mild to moderate stenosis, while not quantified, this is not usually descriptor for 70% stenosis and he is not currently symptomatic. I would however suggest repeat studies in 6-12 months as outpatient. Upon discharge, he'll need to continue to f/u with us. [phone] Code(s): I77.9 - DISORDER OF ARTERIES AND ARTERIOLES, UNSPECIFIED
[2016-10-08] MEDS ORDERED: DIPYRIDAMOLE STRESS TEST IVPB ONE (10:00)
[2016-10-08] MEDS ORDERED: WATER IVPB ONE (10:00)
[2016-10-08] MEDS ORDERED: DEXTROSE 5% IVPB ONE (10:00)
[2016-10-08] MEDS ORDERED: INSULIN (NOVOLOG) ASPART 100 UNITS/ML 10ML VIAL ONE (11:37)
[2016-10-08] MEDS: amLODIPine BESYLATE 5 MG TABLET (FP) PO SCH (11:39)
[2016-10-08] MEDS: ASPIRIN 81 MG CHEWABLE TABLETS PO SCH (11:39)
--- NOTE | 2016-10-08 15:10 | PN ---
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
--- NOTE | 2016-10-08 16:50 | PN ---
Physical Exam: SUBJECTIVE: Patient seen and examined. He is concerned re: cardiac results he says he feels well. I explained the results to him and . OBJECTIVE: Vital Signs Period Temp Pulse Resp BP Sys/Alva Pulse Ox Last 24 Hr 97.3 F-98 F 67-81 20-20 120-150/62-89 97-97 PE Neuro: alert, awake, R sided numbness, asymmetrical smile, R eye unable to squeeze shut, forehead dose not wrinkle sensation L>R - mild improvement Pulm: CTAB CV: s1 s2 rrr no mrg Abd: s nt nd + bs Ext: warm, no le edema Laboratory Results - last 24 hr 10/07/16 10/08/16 10/08/16 21:31 05:35 05:35 Sodium 138 Potassium 4.0 Chloride 103 Carbon Dioxide 23 Anion Gap 12 BUN 50 H Creatinine 2.4 H POC Glucometer 192 200 Random Glucose 220 H D Calcium 9.0 Creatine Kinase 190 Creatine Kinase Index 1.3 CK-MB (CK-2) 2.496 CK-MB (CK-2) Rel Index Troponin I 0.21 H Active Medications Generic Name Dose Route Start Last Admin Trade Name Freq PRN Reason Stop Dose Admin Amlodipine Besylate 5 mg 10/06/16 17:45 10/08/16 11:39 Norvasc - PO 5 mg DAILY [facility] Administration Aspirin 81 mg 10/06/16 10:00 10/08/16 11:39 Asa - PO 81 mg DAILY [facility] Administration Insulin Aspart 1 vial 10/06/16 16:30 10/08/16 11:38 Novolog Vial Sliding Scale - SQ 6 units ACHS [facility] Administration Protocol Insulin Detemir 40 units 10/06/16 22:00 10/07/16 22:03 Levemir Vial SQ 40 units HS [facility] Administration Insulin Detemir 12 units 10/08/16 16:40 Levemir Vial SQ HS [facility] Prednisone 60 mg 10/06/16 22:00 10/07/16 22:02 Deltasone - PO 10/08/16 23:59 60 mg DAILY@2200 [facility] Administration Prednisone 50 mg 10/09/16 22:00 Deltasone - PO DAILY@2200 [facility] Rosuvastatin Calcium 40 mg 10/06/16 22:00 10/07/16 22:02 Crestor - PO 40 mg HS [facility] Administration Imaging: - CT head with no acute intracranial pathology - Carotid Dopplers mild to moderate carotid stenosis Assessment: 66 year old male with PMHx of DM, CAD s/p cardiac stent (2007), PPM/ ICD (2016), Jaime's palsy, diabetic retinopathy/nephropathy, CKD III, legal blindness, hyperlipidemia, orthostatic hypotension admitted with right facial droop. Plan: 1. Elevated troponins - Nuclear stress shows sm-mod zone of inferior reversible defect from base to mid cavity, mid-mod ischemia, cannot r/o inferobasal infarct. Mod-severe severely reduced LVSF, EF 37%, global hypokinesia - No heparin gtt as no active STEMI/NSTEMI - D/w Dr. 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 Terrell Jacobs [facility] 2. Jaime's Palsy - Taper medrol 50mg tonight x2 days and continue - Hold on Valtrex for CKD and symptoms are not severe - ECHO results pending - Unable to perform MRI 2/2 pacemaker - Pacemaker interrogation 3. HTN - Hx of orthostatic hypotension - Fludrocortisone on hold while on po steroids - Norvasc 5 daily 4. 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 CAD s/p cardiac stent (2007) - Continue ASA - Continue Crestor 6. PPM/ICD - F/u interrogation 7. Hyperlipidemia - Continue crestor 8. DM II - Levemir 20units BID Visit type - Emergency Visit Emergency Visit: Yes ED Registration Date: 10/07/16 Care time: The patient presented to the Emergency Department on the above date and was hospitalized for further evaluation of their emergent condition. - New Patient This patient is new to me today: No - Critical Care Critical Care patient: No
[2016-10-08] MEDS: ROSUVASTATIN CA 20 MG TABLET (FP) PO SCH (21:44)
[2016-10-08] MEDS: INSULIN DETEMIR 100 UNITS/ML MDV SQ SCH (21:46)
[2016-10-08] MEDS ORDERED: predniSONE 20 MG TABLET (UD) PO SCH (22:00)
[2016-10-08] MEDS ORDERED: INSULIN DETEMIR 100 UNITS/ML MDV SQ SCH (22:00)
[2016-10-09 05:44] VITALS: TEMP 98
[2016-10-09 07:14] VITALS: BP 153/87; PULSE 82
[2016-10-09] MEDS: INSULIN DETEMIR 100 UNITS/ML MDV SQ SCH (07:41)
[2016-10-09] MEDS: INSULIN SLIDING SCALE (NOVOLOG) 1 VIAL SQ SCH (07:41)
[2016-10-09] MEDS: amLODIPine BESYLATE 5 MG TABLET (FP) PO SCH (09:27)
[2016-10-09] MEDS: ASPIRIN 81 MG CHEWABLE TABLETS PO SCH (09:27)
--- NOTE | 2016-10-09 09:55 | CONSULT ---
Consult - text type - Consultation Consultation Note: Cardiology 67 year old male DM, HTN, denies any cardiac symptoms PE: vitals stable normal cardio-pulmonary exam abdomen soft no leg edema EKG NSR, ST depression, T inversions laterally Impression: Jaime's palsy CAD, PCI 2007, pacemaker 2016; borderline troponins ARF/CRF stable from cardiac standpoint Nuclear stress test small to moderate size, mild to moderate intensity inferior ischemia, EF 37%, moderate hypokinesis no ACEI due to CRF, no BB due to episodes of hypotension in past lipids within target Rec: Discharge with close cardiac follow-up
--- NOTE | 2016-10-09 10:08 | DS ---
Physical Exam: SUBJECTIVE: Patient seen and examined. He feels well, he has no acute cp or sob he is ambulating without issue and able to close his eyes. Eager to go home OBJECTIVE: Vital Signs Period Temp Pulse Resp BP Sys/Alva Pulse Ox Last 24 Hr 97.3 F-98.5 F 64-86 18-20 129-164/78-100 97-97 PE Neuro: alert, awake, R sided numbness, asymmetrical smile, R eye squeezing improved, forehead dose not wrinkle sensation L>R -improvement Pulm: CTAB CV: s1 s2 rrr no mrg Abd: s nt nd + bs Ext: warm, no le edema Laboratory Results - last 24 hr 10/08/16 10/08/16 10/08/16 11:26 16:44 20:50 POC Glucometer 246 276 131 10/09/16 10/09/16 05:17 09:07 POC Glucometer 227 275 HOSPITAL COURSE: Date of Admission:10/07/16 Date of Discharge: 10/09/16 Minutes to complete discharge: 35 Discharge Summary Reason For Visit: FACIAL NUMBNESS, HYPERTENSIVE,NSTEMI Current Active Problems Jaime's palsy (Acute) Carotid arterial disease (Acute) Facial numbness (Acute) Hypertensive emergency (Acute) Hospital Course: Initial Hospital Course: Briefly, this 66 year old male with hx of DM, CAD, [place] palsy (2005), PPM/ICD( 2016), cardiac stent (2007), diabetic retinopathy/nephropathy, CKD, legal blindness, HLP, cardiac ablation, orthostatic hypotension, presented with facial weakness. Patient stated for the past 2-3 days he had pocketing of food in R side of mouth. On the day of admission his family noticed R sided weakness and he experienced numbness. ER course: 1. Valacyclovir, steroids Imaging: - CT head with no acute intracranial pathology - Carotid Dopplers mild to moderate carotid stenosis Subsequent Hospital Course/Progress Note/Discharge Summary by a/p: Assessment: 66 year old male with PMHx of DM, CAD s/p cardiac stent (2007), PPM/ ICD (2016), Jaime's palsy, diabetic retinopathy/nephropathy, CKD III, legal blindness, hyperlipidemia, orthostatic hypotension admitted with right facial droop. Plan: 1. Elevated troponins - Nuclear stress shows sm-mod zone of inferior reversible defect from base to mid cavity, mid-mod ischemia, cannot r/o inferobasal infarct. Mod-severe severely reduced LVSF, EF 37%, global hypokinesia - Not actively symptomatic, trops down trended, stable on meds, will defer cath at this time - Per cards, will dc home with outpt follow up, Dr. Booth to sign out to Dr. Jacobs 2. Jaime's Palsy - Taper medrol 50mg x1 day, 40mg x2 days, 30 x2 days, 20mg x2 days, 10mg x2 days - Hold on Valtrex for CKD and symptoms are not severe - Unable to perform MRI 2/2 pacemaker 3. HTN - Hx of orthostatic hypotension - Fludrocortisone on hold while on po steroids, pt aware to hold until above steroids complete - Norvasc 5 daily 4. 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 CAD s/p cardiac stent (2007) - Continue ASA - Continue Crestor 6. Hyperlipidemia - Continue crestor 7. DM II - Resume home meds, lantus 40units HS Dispo: PCP-Dr. Dyan [place]-Dr. Jacobs, Terrell Virgen- Previously Dr. Virgen-- [facility] - Home with above steroids, pt aware to follow up with Dr. Jacobs Condition: Critical - Instructions Diet, Activity, Other Instructions: Please return to the ED for any new, persistent, or worsening symptoms. 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) in 1-2 weeks for follow up Referrals: Hiram Mcadams MD [Staff Physician] - Disposition: VNS/HOME HEALTH CARE - Home Medications Comprehensive Discharge Medication List: Ambulatory Orders Fludrocortisone Acetate 0.1 mg PO BID 10/06/16 Aspirin [ASA -] 81 mg PO DAILY #0 tab 10/09/16 Insulin Glargine,Hum.rec.anlog [Lantus Solostar PEN -] 40 units SQ HS #0 unit Linagliptin [Tradjenta] 5 mg PO ONCE #0 tab 10/09/16 Prednisone 10 mg PO DAILY@2200 #25 tablet 10/09/16 Rosuvastatin Calcium [Crestor] 40 mg PO HS #0 tab 10/09/16 Tamsulosin HCl [Flomax] 0.4 mg PO ONCE #0 cap 10/09/16 This patient is new to me today: No Emergency Visit: Yes ED Registration Date: 10/07/16 Care time: The patient presented to the Emergency Department on the above date and was hospitalized for further evaluation of their emergent condition. Critical Care patient: No - Discharge Referral Referred to [facility] Med P.[facility] No
[2016-10-09] MEDS ORDERED: predniSONE 20 MG TABLET (UD) PO SCH ×2 (22:00)
== END 2016-10-09 10:21 | disposition home health service (06) | DRG 305 ==
LOC: JER 20:55 → INTOOBSV 10-06 00:04 → JERBED 10-06 00:04 → J4W 10-06 21:15 → OBSVTOIN 10-07 18:06
PROVIDERS: ADMIT Internal Medicine; ATTEND Nurse Practitioner Acute Care
DX: I16.1 Hypertensive emergency (principal); G51.0 Bell's palsy; I25.10 Atherosclerotic heart disease of native coronary artery without angina pectoris; Z95.5 Presence of coronary angioplasty implant and graft; Z91.14 Patient's other noncompliance with medication regimen; I12.9 Hypertensive chronic kidney disease with stage 1 through stage 4 chronic kidney disease, or unspecified chronic kidney disease; E11.22 Type 2 diabetes mellitus with diabetic chronic kidney disease; N18.3 Chronic kidney disease, stage 3 (moderate); E11.319 Type 2 diabetes mellitus with unspecified diabetic retinopathy without macular edema; H54.8 Legal blindness, as defined in USA; Z95.0 Presence of cardiac pacemaker; Z79.4 Long term (current) use of insulin; R20.0 Anesthesia of skin; E78.5 Hyperlipidemia, unspecified; R79.89 Other specified abnormal findings of blood chemistry; I65.29 Occlusion and stenosis of unspecified carotid artery
CPT/HCPCS: 36415; 70450-TC; 71010-TC; 78452-TC; 80048; 80053; 80061; 81003; 81015; 82550; 82553; 83036; 83721; 84443; 84484; 85025; 85610; 85730; 93005; 93010; 93017; 93306-TC; 93880-TC; 97116-GP; 97161-GP; 99285-25; A9502; G0378; J1245

== ENCOUNTER 2017-10-15 02:29 | Observation (INO) | payer OTHER ==
[2017-10-15 04:43] LABS: BASO % 0.5 % (0-2.0); HEMATOCRIT 35.8 % (35.4-49); HEMOGLOBIN 12.4 GM/dL (11.7-16.9); LYMPH % 23.3 % (8-40); MCH 33.2 pg (25.7-33.7); MCHC 34.6 g/dl (32.0-35.9); MEAN CELL VOLUME 95.9 fl (80-96); MEAN PLT VOLUME 8.1 fl (7.5-11.1); MONO % 7.4 % (3.8-10.2); NEUT % 64.8 % (42.8-82.8); PLATELET COUNT 211 K/MM3 (134-434); RBC 3.73 M/mm3 (4.00-5.60); RDW 12.2 % (11.9-15.9); WHITE BLOOD COUNT 7.7 K/mm3 (4.0-10.0)
[2017-10-15 05:07] LABS: ALBUMIN 3.8 g/dl (3.4-5.0); ANION GAP 11 (8-16); BILIRUBIN,TOTAL 0.4 mg/dL (0.2-1.0); BLOOD UREA NITROGEN 40 mg/dL (7-18); CALCIUM 8.5 mg/dL (8.5-10.1); CHLORIDE 107 mmol/L (98-107); CO2 24 mmol/L (21-32); CREATININE 3.1 mg/dL (0.7-1.3); GLUCOSE,RANDOM 160 mg/dL (74-106); POTASSIUM 4.6 mmol/L (3.5-5.1); SGOT/AST 34 U/L (15-37); SGPT/ALT 23 U/L (12-78); SODIUM 142 mmol/L (136-145); TOT PROT 7.3 g/dl (6.4-8.2)
[2017-10-15 05:09] LABS: ALK PHOS 119 U/L (45-117)
[2017-10-15 07:05] LABS: URINE APPEARANCE CLEAR; URINE BILIRUBIN NEGATIVE (<2.0 mg/dL); URINE BLOOD 1+ (NEGATIVE); URINE COLOR LTYELLOW; URINE GLUCOSE (UA) 1+ (NEGATIVE); URINE KETONE NEGATIVE (NEGATIVE); URINE LEUK ESTERASE NEGATIVE (NEGATIVE); URINE NITRITE NEGATIVE (NEGATIVE); URINE UROBILINOGEN NEGATIVE mg/dL (0.2-1.0)
[2017-10-15 07:24] LABS: URINE PROTEIN 1+ (NEGATIVE)
--- NOTE | 2017-10-15 08:39 | PDOC ---
*Physical Exam - Physical Exam General Appearance: Yes: Nourished, Appropriately Dressed. No: Apparent Distress Respiratory/Chest: positive: Lungs Clear, Normal Breath Sounds. negative: Respiratory Distress, Accessory Muscle Use, Rales, Rhonchi, Wheezing Cardiovascular: positive: Regular Rhythm, Regular Rate, S1, S2 (present). negative: Murmur Gastrointestinal/Abdominal: positive: Normal Bowel Sounds, Flat. 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3 Albumin 3.8 Urine Color Ltyellow Urine Appearance Clear Urine pH 5.0 Ur Specific [place] 1.011 Urine Protein 1+ H Urine Glucose (UA) 1+ H Urine Ketones Negative Urine Blood 1+ H Urine Nitrite Negative Urine Bilirubin Negative Urine Urobilinogen Negative Ur Leukocyte Esterase Negative Urine WBC (Auto) None Urine RBC (Auto) <1 10/15/17 04:30 RBC 3.73 L MCV 95.9 MCHC 34.6 RDW 12.2 MPV 8.1 Neutrophils % 64.8 D Lymphocytes % 23.3 D Monocytes % 7.4 D Eosinophils % 4.0 D Basophils % 0.5 D Medical Decision Making - Medical Decision Making 10/15/17 09:09 Received signout from GENIA Gibson at 0700. There was no chart in the computer due to down time. Paper chart review. Patient has history of insulin-dependent diabetes, presented to the emergency department via EMS after family "witnessed a seizure". On arrival of EMS patient was found to have a blood glucose of 26. He was given an amp of D50 in the field. Also received 2 bags of D50 in the emergency department. According to family patient insulin without eating last night. There is no evidence of seizure on exam no lip biting, bladder or bowel incontinence. No post ictal phase. On review of labs. Patient with creatinine of 3.4 which is an elevation from a sign at 2.4. Patient also has troponin elevation at 0.16. EKG shows normal sinus rhythm with no ST T wave changes. Most likely demand ischemia due to this EKG. Given hypoglycemia and elevated troponin, history of present illness we will place the patient in observation at this time. [employer] consult. Pending call back from [employer]. Head CT negative for bleed, ischema, or mass. 10/15/17 11:32 Pt took home meds, Tricenta and Midorone after eating lunch 10/15/17 11:42 Case discussed with Kristie Iqbal NP. Will place the patient in obs for further management of his abdelrahman 10/15/17 11:42 *DC/Admit/Observation/Transfer Diagnosis at time of Disposition: ABDELRAHMAN (acute kidney injury), Elevated troponin, Hypoglycemia - Discharge Dispostion Condition at time of disposition: Stable Admit: Yes - Referrals - Patient Instructions - Post Discharge Activity
[2017-10-15] MEDS ORDERED: SODIUM CHLORIDE 1,000 ML IV SCH ×2 (10:15→12:17)
--- NOTE | 2017-10-15 12:02 | HP ---
CHIEF COMPLAINT: Altered mental status PCP: Dr. Orellana, [place], [place] HISTORY OF PRESENT ILLNESS: 67 year-old male with a PMH significant for orthostatic hypotension, HLD, CAD s/ p stents s/p PPM/ICD, and IDDM. Presented to the emergency department via EMS after family "witnessed a seizure". On arrival of EMS patient was found to have a blood glucose of 26. He was given an amp of D50 in the field. Also received 2 bags of D50 in the ED. According to family patient took his insulin last night without eating. ER course was notable for: (1) Glucose 160 (2) BUN/Cr 40/3.1 (baseline Cr ~2.5) (3) Troponin 0.16 Recent Travel: No PAST MEDICAL HISTORY: Orthostatic hypotension Hyperlipidemia Coronary artery disease s/p stents (2007) s/p PPM/ICD (2017) IDDM Diabetic neuropathy Diabetic retinopathy (legal blindness) [place] Palsy PAST SURGICAL HISTORY: PCI PPM/ICD Social History: Smoking: no Alcohol: no Drugs: no Family History: Allergies No Known Drug Allergies Allergy (Verified 10/05/16 20:57) HOME MEDICATIONS: Home Medications Medication Instructions Recorded Fludrocortisone Acetate 0.1 mg PO BID 10/06/16 Aspirin [ASA -] 81 mg PO DAILY #0 tab 10/09/16 Insulin Glargine,Hum.rec.anlog 40 units SQ HS #0 unit 10/09/16 [Lantus Solostar PEN -] Linagliptin [Tradjenta] 5 mg PO ONCE #0 tab 10/09/16 Prednisone 10 mg PO DAILY@2200 #25 tablet 10/09/16 Rosuvastatin Calcium [Crestor] 40 mg PO HS #0 tab 10/09/16 Tamsulosin HCl [Flomax] 0.4 mg PO ONCE #0 cap 10/09/16 REVIEW OF SYSTEMS: See HPI; other ROS negative PHYSICAL EXAMINATION Vital Signs - 24 hr 10/15/17 10/15/17 09:43 10:15 Temperature 98 F Pulse Rate [ 80 Apical] Respiratory 17 Rate Blood Pressure 169/71 [Right Arm] O2 Sat by Pulse 100 98 Oximetry (%) GENERAL: Awake, alert, and fully oriented, in no acute distress. HEAD: Normal with no signs of trauma. EYES: Pupils equal, round and reactive to light, extraocular movements intact, sclera anicteric, conjunctiva clear. No lid lag. EARS, NOSE, THROAT: Ears normal, nares patent, oropharynx clear without exudates. Moist mucous membranes. NECK: Normal range of motion, supple without lymphadenopathy, JVD, or masses. LUNGS: Breath sounds equal, clear to auscultation bilaterally. No wheezes, and no crackles. No accessory muscle use. HEART: Regular rate and rhythm, normal S1 and S2 without murmur, rub or gallop. ABDOMEN: Soft, nontender, not distended, normoactive bowel sounds, no guarding, no rebound, no masses. No hepatomegaly or splenomegaly. MUSCULOSKELETAL: Normal range of motion at all joints. No bony deformities or tenderness. No CVA tenderness. UPPER EXTREMITIES: 2+ pulses, warm, well-perfused. No cyanosis. No clubbing. No peripheral edema. LOWER EXTREMITIES: 2+ pulses, warm, well-perfused. No calf tenderness. No peripheral edema. NEUROLOGICAL: Cranial nerves II-XII intact. Normal speech. Laboratory Results - last 24 hr 10/15/17 10/15/17 10/15/17 04:30 04:30 06:40 WBC 7.7 RBC 3.73 L Hgb 12.4 Hct 35.8 MCV 95.9 MCH 33.2 MCHC 34.6 RDW 12.2 Plt Count 211 MPV 8.1 Neutrophils % 64.8 D Lymphocytes % 23.3 D Monocytes % 7.4 D Eosinophils % 4.0 D Basophils % 0.5 D Sodium 142 Potassium 4.6 Chloride 107 Carbon Dioxide 24 Anion Gap 11 BUN 40 H Creatinine 3.1 H D Creat Clearance w eGFR 20.20 Random Glucose 160 H D Calcium 8.5 Total Bilirubin 0.4 AST 34 ALT 23 D Alkaline Phosphatase 119 H Creatine Kinase 246 Creatine Kinase Index 0.9 CK-MB (CK-2) 2.216 Troponin I 0.16 H Total Protein 7.3 Albumin 3.8 Urine Color Ltyellow Urine Appearance Clear Urine pH 5.0 Ur Specific [place] 1.011 Urine Protein 1+ H Urine Glucose (UA) 1+ H Urine Ketones Negative Urine Blood 1+ H Urine Nitrite Negative Urine Bilirubin Negative Urine Urobilinogen Negative Ur Leukocyte Esterase Negative Urine WBC (Auto) None Urine RBC (Auto) <1 ASSESSMENT/PLAN 67 year-old male with a PMH significant for orthostatic hypotension, HLD, CAD s/ p stents s/p PPM/ICD, and IDDM who took his insulin last night and went to bed without eating. Placed on observation for hypoglycemic event and ABDELRAHMAN on CKD. IDDM --initial glucose 160 after bolused by EMS and in ED --repeat bmp pending --continue Tradjenta --Levemir 40U qhs --Novolog sliding scale coverage ABDELRAHMAN/CKD --Cr 3.1 on admission, baseline ~2.5 --IV fluids --bmp pending Orthostatic hypotension --BP stable Hyperlipidemia --continue Crestor Coronary artery disease --initial troponin 0.16, repeat pending --ECG not suggestive of acute ischemic event --telemetry monitoring FEN Fluids: NS @ 100mL/hr Electrolytes: replete as indicated Nutrition: diabetic diet DVT prophylaxis: oob, ambulation Dispo: continues to require observation. Visit type - Emergency Visit Emergency Visit: Yes ED Registration Date: 10/15/17 Care time: The patient presented to the Emergency Department on the above date and was hospitalized for further evaluation of their emergent condition. - New Patient This patient is new to me today: Yes Date on this admission: 10/15/17 - Critical Care Critical Care patient: No Hospitalist Screening - Colonoscopy Questionnaire Colonoscopy Questionnaire: Colonoscopy Questionnaire - Patient: 50 - 75 years old and never had a screening colonoscopy: Unknown History of colon or rectal polyps, or CA: Unknown History of IBD, Crohn's disease or UC: Unknown History of abdominal radiation therapy as a child: Unknown - Relative: 1 with colon or rectal CA, or polyps at age 60 or younger: Unknown Colon or rectal CA diagnosed at age 45 or younger: Unknown Multiple relatives with colon or rectal CA: Unknown - Outcome: Screening Result: Negative Screen
[2017-10-15] MEDS ORDERED: TAMSULOSIN HCL 0.4 MG CAP.ER.24H (FP) PO ONE (12:15)
[2017-10-15] MEDS ORDERED: sitaGLIPtin PHOSPHATE 25 MG TABLET (FP) PO ONE (12:15)
--- NOTE | 2017-10-15 13:52 | EKG ---
Test Reason : Blood Pressure : / mmHG Vent. Rate : 062 BPM Atrial Rate : 062 BPM P-R Int : 204 ms QRS Dur : 124 ms QT Int : 472 ms P-R-T Axes : 000 238 057 degrees QTc Int : 479 ms NORMAL SINUS RHYTHM RIGHT BUNDLE BRANCH BLOCK ABNORMAL ECG WHEN COMPARED WITH ECG OF 07-OCT-2016 08:58, PREMATURE VENTRICULAR COMPLEXES ARE NO LONGER PRESENT RIGHT BUNDLE BRANCH BLOCK IS NOW PRESENT Confirmed by JOSH FAJARDO, ASHOK ([id number]) on 10/15/2017 1:52:30 PM Referred By: Confirmed By:ASHOK MORENO MD
[2017-10-15 14:00] VITALS: TEMP 97.7
[2017-10-15 14:21] LABS: ANION GAP 3 (8-16); BLOOD UREA NITROGEN 36 mg/dL (7-18); CALCIUM 8.2 mg/dL (8.5-10.1); CHLORIDE 109 mmol/L (98-107); CO2 30 mmol/L (21-32); CREATININE 2.6 mg/dL (0.7-1.3); GLUCOSE,RANDOM 165 mg/dL (74-106); POTASSIUM 4.2 mmol/L (3.5-5.1); SODIUM 142 mmol/L (136-145)
[2017-10-15 16:04] VITALS: BMI 26.2
--- NOTE | 2017-10-15 16:13 | DS ---
Physical Exam: SUBJECTIVE: Patient seen and examined OBJECTIVE: Vital Signs Period Temp Pulse Resp BP Sys/Alva Pulse Ox Last 24 Hr 97.7 F-98 F 72-80 17-18 105-169/64-71 98-100 PHYSICAL EXAM GENERAL: The patient is awake, alert, and fully oriented, in no acute distress. HEAD: Normal with no signs of trauma. EYES: PERRL, extraocular movements intact, sclera anicteric, conjunctiva clear. ENT: Ears normal, nares patent, oropharynx clear without exudates, moist mucous membranes. NECK: Trachea midline, full range of motion, supple. LUNGS: Breath sounds equal, clear to auscultation bilaterally, no wheezes, no crackles, no accessory muscle use. HEART: Regular rate and rhythm, S1, S2 without murmur, rub or gallop. ABDOMEN: Soft, nontender, nondistended, normoactive bowel sounds, no guarding, no rebound, no hepatosplenomegaly, no masses. EXTREMITIES: 2+ pulses, warm, well-perfused, no edema. NEUROLOGICAL: Cranial nerves II through XII grossly intact. Normal speech, gait not observed. PSYCH: Normal mood, normal affect. SKIN: Warm, dry, normal turgor, no rashes or lesions noted. LABS Laboratory Results - last 24 hr 10/15/17 10/15/17 10/15/17 04:30 04:30 06:40 WBC 7.7 RBC 3.73 L Hgb 12.4 Hct 35.8 MCV 95.9 MCH 33.2 MCHC 34.6 RDW 12.2 Plt Count 211 MPV 8.1 Neutrophils % 64.8 D Lymphocytes % 23.3 D Monocytes % 7.4 D Eosinophils % 4.0 D Basophils % 0.5 D Sodium 142 Potassium 4.6 Chloride 107 Carbon Dioxide 24 Anion Gap 11 BUN 40 H Creatinine 3.1 H D Creat Clearance w eGFR 20.20 Random Glucose 160 H D Calcium 8.5 Total Bilirubin 0.4 AST 34 ALT 23 D Alkaline Phosphatase 119 H Creatine Kinase 246 Creatine Kinase Index 0.9 CK-MB (CK-2) 2.216 Troponin I 0.16 H Total Protein 7.3 Albumin 3.8 Urine Color Ltyellow Urine Appearance Clear Urine pH 5.0 Ur Specific [place] 1.011 Urine Protein 1+ H Urine Glucose (UA) 1+ H Urine Ketones Negative Urine Blood 1+ H Urine Nitrite Negative Urine Bilirubin Negative Urine Urobilinogen Negative Ur Leukocyte Esterase Negative Urine WBC (Auto) None Urine RBC (Auto) <1 10/15/17 13:14 WBC RBC Hgb Hct MCV MCH MCHC RDW Plt Count MPV Neutrophils % Lymphocytes % Monocytes % Eosinophils % Basophils % Sodium 142 Potassium 4.2 Chloride 109 H Carbon Dioxide 30 D Anion Gap 3 L BUN 36 H Creatinine 2.6 H Creat Clearance w eGFR Random Glucose 165 H Calcium 8.2 L Total Bilirubin AST ALT Alkaline Phosphatase Creatine Kinase 323 H Creatine Kinase Index 1.3 CK-MB (CK-2) 4.437 H Troponin I 0.16 H Total Protein Albumin Urine Color Urine Appearance Urine pH Ur Specific [place] Urine Protein Urine Glucose (UA) Urine Ketones Urine Blood Urine Nitrite Urine Bilirubin Urine Urobilinogen Ur Leukocyte Esterase Urine WBC (Auto) Urine RBC (Auto) HOSPITAL COURSE: Date of Admission:10/15/17 Date of Discharge: 10/15/17 Pre hospital course 67 year-old male with a PMH significant for orthostatic hypotension, HLD, CAD s/ p stents s/p PPM/ICD, and IDDM. Presented to the emergency department via EMS after family "witnessed a seizure". On arrival of EMS patient was found to have a blood glucose of 26. He was given an amp of D50 in the field. Also received 2 bags of D50 in the ED. According to family patient took his insulin last night without eating. ER course was notable for: (1) Glucose 160 (2) BUN/Cr 40/3.1 (baseline Cr ~2.5) (3) Troponin 0.16 Subsequent hospital course by problem list IDDM --initial glucose 160, repeat 165 --continued Tradjenta --Levemir 40U qhs --Novolog sliding scale coverage ABDELRAHMAN/CKD --Cr 3.1 on admission, repeat 2.6 after IV fluids, baseline ~2.5 Orthostatic hypotension --BP stable Hyperlipidemia --continued Crestor Coronary artery disease --initial troponin 0.16, repeat 0.16, flat trending --ECG not suggestive of acute ischemic event --telemetry monitoring no events Minutes to complete discharge: 35 Discharge Summary Reason For Visit: ACUTE KIDNEY INJURY,HYPOGLYCEMIA,ELEVATED TROPONIN Current Active Problems ABDELRAHMAN (acute kidney injury) (Acute) Elevated troponin (Acute) Hypoglycemia (Acute) Condition: Improved - Instructions Diet, Activity, Other Instructions: It is important to stay well-hydrated, please drink plenty of water and sugar- free fluids. Disposition: HOME - Home Medications Comprehensive Discharge Medication List: Ambulatory Orders Insulin Glargine,Hum.rec.anlog [Lantus Solostar PEN -] 40 units SQ HS #0 unit Linagliptin [Tradjenta] 5 mg PO ONCE #0 tab 10/09/16 Rosuvastatin Calcium [Crestor] 40 mg PO HS #0 tab 10/09/16 Tamsulosin HCl [Flomax] 0.4 mg PO ONCE #0 cap 10/09/16 Aspirin [ASA -] 81 mg PO DAILY 10/15/17 Magnesium Oxide [Mag-Ox -] 400 mg PO DAILY 10/15/17 Midodrine HCl 5 mg PO BID 10/15/17 This patient is new to me today: Yes Date on this admission: 10/28/17 Emergency Visit: Yes ED Registration Date: 10/15/17 Care time: The patient presented to the Emergency Department on the above date and was hospitalized for further evaluation of their emergent condition. Critical Care patient: No - Discharge Referral Referred to [facility] Med P.C.: No
[2017-10-15] MEDS ORDERED: INSULIN SLIDING SCALE (NOVOLOG) 1 VIAL SQ SCH (16:30)
[2017-10-15 16:45] VITALS: BP 111/72; PULSE 78
[2017-10-15] MEDS ORDERED: MIDODRINE HCL 5 MG TABLET PO SCH (18:00)
[2017-10-15] MEDS ORDERED: ROSUVASTATIN CA 40 MG TABLET PO SCH (22:00)
[2017-10-15] MEDS ORDERED: INSULIN (LEVEMIR) 100 UNITS/ML UNITS SQ SCH (22:00)
[2017-10-16] MEDS ORDERED: ASPIRIN 81 MG CHEWABLE TABLETS PO SCH (10:00)
[2017-10-16] MEDS ORDERED: MAGNESIUM OXIDE 400 MG TABLET (FP) PO SCH (10:00)
== END 2017-10-15 16:40 | disposition home or self-care (01) ==
LOC: JDEL 02:29 → JER 02:29 → JERBED 11:43
PROVIDERS: ADMIT Internal Medicine; ATTEND Nurse Practitioner Acute Care
PROC: 3E0337Z Introduction of Electrolytic and Water Balance Substance into Peripheral Vein, Percutaneous Approach (ICD-10-PCS; principal; 2017-10-15)
DX: N17.9 Acute kidney failure, unspecified (principal); E11.649 Type 2 diabetes mellitus with hypoglycemia without coma; E11.42 Type 2 diabetes mellitus with diabetic polyneuropathy; E11.319 Type 2 diabetes mellitus with unspecified diabetic retinopathy without macular edema; Z79.4 Long term (current) use of insulin; R77.8 Other specified abnormalities of plasma proteins; I95.1 Orthostatic hypotension; E78.5 Hyperlipidemia, unspecified; I25.10 Atherosclerotic heart disease of native coronary artery without angina pectoris; Z95.5 Presence of coronary angioplasty implant and graft; Z95.0 Presence of cardiac pacemaker; H54.8 Legal blindness, as defined in USA; Z86.69 Personal history of other diseases of the nervous system and sense organs
CPT/HCPCS: 36415; 70450-TC; 80048; 80053; 81003; 81015; 82550; 82553; 84484; 85025; 87086; 93005; 93010; 99284-25; G0378; J7030

== ENCOUNTER 2020-03-29 12:42 | Inpatient (IN) | payer OTHER ==
--- NOTE | 2020-03-29 12:51 | PDOC ---
Rapid Medical Evaluation Time Seen by Provider: 03/29/20 12:46 Medical Evaluation: Allergies Allergy/AdvReac Type Severity Reaction Status Date / Time No Known Drug Allergies Allergy Verified 10/05/16 20:57 03/29/20 12:47 I performed a brief in-person evaluation of this patient. Pt is a 69 y/o male who presents to the ED with has been having trouble speaking for the last 2 days. Family thought he just lost his voice. Sent to the ED by Dr. Mcclendon to r/o left MCA CVA. Pertinent physical exam findings: slurred speech, following commands, no facial droop, no ataxia, no drift I have ordered the following: stroke protocol Patient to proceed to ED for further evaluation. Discharge Disposition - Diagnosis Slurred speech - Referrals - Patient Instructions - Post Discharge Activity
[2020-03-29] MEDS ORDERED: SODIUM CHLORIDE 1,000 ML IV SCH (13:00)
--- OUTSIDE RECORDS SUMMARY | 2020-03-29 13:22 | XMS ---
:1950 Author Organization [facility] Support Name Relationship Address Phone RE Unavailable Unavailable Unavailable CHE[place] [address] JEFFERY KULKARNI [address] [place] [address] Re-disclosure Warning The records that you are about to access may contain information from federally- assisted alcohol or drug abuse programs. If such information is present, then the following federally mandated warning applies: This information has been disclosed to you from records protected by federal confidentiality rules (42 CFR part 2). The federal rules prohibit you from making any further disclosure of this information unless further disclosure is expressly permitted by the written consent of the person to whom it pertains or as otherwise permitted by 42 CFR part 2. A general authorization for the release of medical or other information is NOT sufficient for this purpose. The Federal rules restrict any use of the information to criminally investigate or prosecute any alcohol or drug abuse patient.The records that you are about to access may contain highly sensitive health information, the redisclosure of which is protected by Article 27-F of the [facility] Public Health law. If you continue you may haveaccess to information: Regarding HIV / AIDS; Provided by facilities licensed or operated by the [facility] Office of Mental Health; or Provided by the [facility] Office for People With Developmental Disabilities. If such information is present, then the following [facility] mandated warning applies: This information has been disclosed to you from confidential records which are protected by state law. State law prohibits you from making any further disclosure of this information without the specific written consent of the person to whom it pertains, or as otherwise permitted by law. Any unauthorized further disclosure in violation of state law may result in a fine or fdc sentence or both. A general authorization for the release of medical or other information is NOT sufficient authorization for further disclosure. Insurance Providers Payer name Policy type Policy ID Covered Covered green party's Policy P sally / Coverage green party ID relationship to [place] [facility] orm[facility] type [place] MED[place]ID [id number] SP [id number] [employer] [facility] [id number] SP [id number] MEDICARE Dental [id number] S [id number] T-1 [employer] MLTC Medicaid [id number] S [id number] Special Billing Dental [id number] S [id number] 300 [employer] MCRE MNGD Care Affinity [id number] S [id number] 300 Medicare Manage Care Medicare-Blue [id number] S [id number] Cross/Blue Shield Medicaid [id number] S [id number] Regular Clinic Visit Medicaid [id number] S [id number] Medicare Dental Medicare [id number] S [id number] [facility] [place] [facility] Results ID Date Data Source [id number] 03/03/2020 10:21:00 PM EDT [facility] Name Value Range Interpretation Description Data Sup porting Code Source(s) Document(s ) SARS [facility] coronavirus 2 RNA This lab was ordered by Elvi hernández/Rosalino and reported by [facility]. ID Date Data Source [id number] 12/23/2019 09:41:00 AM EDT [facility] Name Value Range Interpretation Description Data Sup porting Code Source(s) Document(s ) SARS [facility] coronavirus 2 RNA This lab was ordered by Elvi hernández/Rosalino and reported by [facility]. ID Date Data Source [id number] 11/04/2019 01:21:00 PM EDT [facility] Name Value Range Interpretation Description Data Sup porting Code Source(s) Document(s ) SARS [facility] coronavirus 2 RNA This lab was ordered by Elvi hernández/Rosalino and reported by [facility]. ID Date Data Source [id number] 11/02/2019 05:07:00 PM EDT [facility] Name Value Range Interpretation Description Data Sup porting Code Source(s) Document(s ) SARS [facility] coronavirus 2 RNA This lab was ordered by Elvi hernández/Rosalino and reported by [facility]. ID Date Data Source [id number] 10/28/2019 12:00:00 AM EDT [facility] Name Value Range Interpretation Code Description Data Sheryl rce(s) Supporting Document(s ) 2018-nCoV [facility] RNA XXX ARIELLE+probe- Imp This lab was ordered by [facility]-Mariely CHRISTIANSON and reported by [employer] ID Date Data Source [id number] 09/25/2019 12:00:00 AM EDT [facility] Name Value Range Interpretation Code Description Data Sheryl rce(s) Supporting Document(s ) 2018-nCoV [facility] RNA XXX ARIELLE+probe- Imp This lab was ordered by [facility] a nd reported by [employer] Procedure
--- NOTE | 2020-03-29 13:24 | PDOC ---
History of Present Illness - General Chief Complaint: CVA/TIA Stated Complaint: R/O STROKE Time Seen by Provider: 03/29/20 12:46 - History of Present Illness Initial Comments: Kaylen is a 69 YOM h/o diabetes, heart failure, orthostatic hypotension who presents with slurred speech and difficulty forming sentences for 2 days. Per p atients daughter day before yesterday patient was well, speaking normally, then began to display current symptoms. The family initially thought he had a cold given difficulty speaking but became concerned there was a neurological issue when he was unable to form sentences. His neurologist, Dr. Mcclendon was contacted who suggested he present to the ED for stroke work up. Patient otherwise denies CP, SOB, N/V/D, fever, chills, dizziness, headache, or confusion. Constitutional: No Weight Change, No Fever, No Chills, No Night Sweats, No Fatigue, No Malaise Eyes: No Vision Changes Cardiovascular: No Chest Pain, No SOB, No PND, No Dyspnea on Exertion Respiratory: No Cough, No Sputum, No Wheezing, No Dyspnea Gastrointestinal: No Nausea, No Vomiting, No Diarrhea, No Constipation Genitourinary: No Urinary Frequency, No Hematuria, No Urinary Incontinence Musculoskeletal: No Injury History Skin: No Skin Lesions, No Pruritis Neuro: No Weakness, No Numbness, No Loss of Consciousness, No Syncope, No Dizziness, No Headache, No Coordination Changes, No Recent Falls 03/29/20 14:28 tPA Exclusion checklist 3-4.5h - Time Elapsed Date last known well: 03/27/20 - Thrombolytic Therapy Candidate Is patient eligible for thrombolytic therapy: No - Ineligibility reason(s) Reasons No tPA given: Outside of window - delayed arrival NIH Stroke Scale - Initial Evaluation Level of consciousness: Alert Ask patient the month and their age: Answers both correctly Ask patient to open & close eyes; make fist and let go: Obeys both correctly Best gaze (horizontal eye movement): Normal Visual field testing: No visual field loss Facial paresis (Show teeth/raise eyebrows/close eyes tight): Normal symmetrical movement Motor Function: Left Arm: Normal Motor Function: Right Arm: Normal (extends arm 90 (or 45) degrees for 10 seconds without drift Motor Function: Left Leg: Normal (extends leg 30 degrees for 5 seconds without drift) Motor Function: Right Leg: Normal (extends leg 30 degrees for 5 seconds without drift) Limb Ataxia: No ataxia Sensory(Use pinprick test arms,legs,trunk,face/side to side): Normal Best language (Describe picture, name items, read sentences): Mild to moderate aphasia Dysarthria (read several words): Mild to moderate slurring of words Extinction and Inattention: No abnormality - Total Score NIH Stroke Scale Score: 2 Past History - Medical History Allergies/Adverse Reactions: Allergies Allergy/AdvReac Type Severity Reaction Status Date / Time No Known Drug Allergies Allergy Verified 10/05/16 20:57 Home Medications: Ambulatory Orders Linagliptin [Tradjenta] 5 mg PO ONCE #0 tab 10/09/16 Aspirin [ASA -] 81 mg PO DAILY 10/15/17 Carvedilol [Coreg -] 3.125 mg PO BID 03/29/20 Furosemide [Lasix] 40 mg PO BID 03/29/20 Insulin (Levemir) [Levemir Vial] 49 unit SQ DAILY 03/29/20 Fluoxetine HCl [Prozac -] 20 mg PO DAILY 03/30/20 Fluoxetine HCl [Prozac] 20 mg PO HS 03/30/20 Magnesium 400 mg PO DAILY 03/30/20 Magnesium Oxide [Mag-Ox -] 400 mg PO DAILY 03/30/20 Metoprolol Succinate [Toprol Xl] 50 mg PO DAILY 03/30/20 Midodrine HCl 5 mg PO BID 03/30/20 Rosuvastatin [Crestor -] 40 mg PO DAILY 03/30/20 Tamsulosin HCl [Flomax] 0.4 mg PO DAILY 03/30/20 Anemia: Yes Asthma: No Cancer: No Cardiac Disorders: Yes (stents) CVA: No COPD: No CHF: No Dementia: No Diabetes: Yes GI Disorders: No Disorders: No HTN: Yes (HYPO) Hypercholesterolemia: Yes Liver Disease: No Seizures: No Thyroid Disease: No - Surgical History Abdominal Surgery: No Appendectomy: No Cardiac Surgery: (CARD CATH TIMES TWO ? STENT) Cholecystectomy: No Lung Surgery: No Neurologic Surgery: No Orthopedic Surgery: No - Psycho-Social/Smoking History Smoking History: Never smoked Have you smoked in the past 12 months: No Information on smoking cessation initiated: No - Substance Abuse Hx (Audit-C & DAST Scrn) How often the patient has a drink containing alcohol: Never Score: In Men: 4 or > Positive; In Women: 3 or > Positive: 0 Screen Result (Pos requires Nsg. Audit-10AR): Negative In the last yr the pt used illegal drug/Rx for NonMed reason: No Score: Yes response is considered Positive: 0 Screen Result (Positive result requires Nsg. DAST-10): Negative *Physical Exam - Vital Signs Last Vital Signs Temp Pulse Resp BP Pulse Ox 97.9 F 70 17 115/69 100 03/29/20 12:50 03/29/20 12:50 03/29/20 12:50 03/29/20 12:50 03/29/20 12:50 - Physical Exam General Appearance: Yes: Nourished, Appropriately Dressed HEENT: positive: EOMI, ELENA, Normal ENT Inspection, Symmetrical, TMs Normal, Pharynx Normal, Other (patient is slurring words, left pupil larger than right) Neck: positive: Trachea midline, Normal Thyroid Respiratory/Chest: positive: Lungs Clear, Normal Breath Sounds Cardiovascular: positive: Regular Rhythm, Regular Rate, S1, S2 Gastrointestinal/Abdominal: positive: Tender, Flat Musculoskeletal: positive: Normal Inspection Extremity: positive: Normal Capillary Refill Integumentary: positive: Normal Color, Dry, Warm Neurologic: positive: labor/excavator II-XII NML intact, Fully Oriented, Alert, Normal Mood/Affect, Normal Response (patients speech is slurred, has difficulty forming sentences), Motor Strength 5/5 ED Treatment Course - LABORATORY CBC & Chemistry Diagram: 03/30/20 06:15 03/30/20 06:15 Medical Decision Making - Medical Decision Making 69 YOM h/o diabetes and heart failure presents for slurred speech and difficulty forming sentences vitals wnl exam significant for slurred speech and aphasia stroke scale 2 plan stroke work up and admit to tele for new disability, call dr mcclendon pending labs and CT read 03/29/20 14:42 CT shows no evidence of acute infarct, however some evidence of chronic infarct Admit patient to tele given risk factors and clinical condition 03/30/20 18:56 Discharge - Discharge Information Problems reviewed: Yes Clinical Impression/Diagnosis: Slurred speech - Follow up/Referral - Patient Discharge Instructions - Post Discharge Activity
--- NOTE | 2020-03-29 15:08 | PDOC ---
Documentation entered by Samuel Segal SCRIBE, acting as scribe for Quinn Munoz MD. Quinn Munoz MD: This documentation has been prepared by the angibe, Samuel Segal SCRIBE, under my direction and personally reviewed by me in its entirety. I confirm that the documentation accurately reflects all work, treatment, procedures, and medical decision making performed by me. Attending Attestation - Resident Resident Name: Aquilino Toth - ED Attending Attestation I have performed the following: I have examined & evaluated the patient, The case was reviewed & discussed with the resident, I agree w/resident's findings & plan, Exceptions are as noted - HPI HPI: 03/29/20 14:30 The patient is a 69 year old male with a significant past medical history of heart failure, orthostatic hypotension, DM, and HLD who presents to the emergency department for slurred speech and difficulty speaking that began two days ago. The patients daughter at bedside reports the patient had difficulty forming sentences beginning yesterday. Pt was at neurologist's office today and sent to ED for stroke w/u. The patient denies chest/abdominal/back pain, cough, and shortness of breath. Denies fever, chills, nausea, vomiting, and/or any GI symptoms. Denies any symptoms. Denies any other symptoms. Allergies: NKDA Social Hx: None reported Surgical Hx: x2 stents PCP: Dr. Vasquez Neurologist: Dr. Mcclendon - Physicial Exam PE: See resident exam - Medical Decision Making 03/29/20 15:09 69 M with slurred speech. R/o CVA. - Labs - CT head - Admit NIH Stroke Scale - Last Known Well Date/Time & Onset Date Last Known Well: 03/27/20 - Initial Evaluation Level of consciousness: Alert Ask patient the month and their age: Answers both correctly Ask patient to open & close eyes; make fist and let go: Obeys both correctly Best gaze (horizontal eye movement): Normal Visual field testing: No visual field loss Facial paresis (Show teeth/raise eyebrows/close eyes tight): Normal symmetrical movement Motor Function: Left Arm: Normal Motor Function: Right Arm: Normal (extends arm 90 (or 45) degrees for 10 seconds without drift Motor Function: Left Leg: Normal (extends leg 30 degrees for 5 seconds without drift) Motor Function: Right Leg: Normal (extends leg 30 degrees for 5 seconds without drift) Limb Ataxia: No ataxia Sensory(Use pinprick test arms,legs,trunk,face/side to side): Normal Best language (Describe picture, name items, read sentences): Mild to moderate aphasia Dysarthria (read several words): Mild to moderate slurring of words Extinction and Inattention: No abnormality - Total Score NIH Stroke Scale Score: 2 Discharge - Discharge Information Clinical Impression/Diagnosis: Slurred speech - Follow up/Referral Referrals: Ashely Vasquez [Primary Care Provider] - - Patient Discharge Instructions - Post Discharge Activity
[2020-03-29 15:23] LABS: BASO % 1.2 % (0-2.0); EOS % 6.2 % (0-4.5); HEMATOCRIT 35.6 % (35.4-49); HEMOGLOBIN 12.1 GM/dL (11.7-16.9); LYMPH % 18.4 % (8-40); MCH 32.7 pg (25.7-33.7); MEAN CELL VOLUME 96.3 fl (80-96); MEAN PLT VOLUME 8.4 fl (7.5-11.1); MONO % 9.8 % (3.8-10.2); NEUT % 64.4 % (42.8-82.8); PLATELET COUNT 190 K/MM3 (134-434); RBC 3.69 M/mm3 (4.00-5.60); RDW 15.3 % (11.9-15.9)
[2020-03-29 15:33] LABS: INR 1.04 (0.83-1.09); PROTHROMBIN TIME (PATIENT) 12.8 SEC (9.7-13.0)
[2020-03-29 15:36] LABS: ACTIVATED PTT 18.9 SECONDS (25.2-36.5)
[2020-03-29 15:59] LABS: CHOLESTEROL 121 mg/dL (50-200); HDL CHOLESTEROL 36 mg/dL (40-60); LDL CHOLESTEROL (ONLY SJRH) 67 mg/dL (5-100); TRIGLYCERIDES 156 mg/dL (0-150)
[2020-03-29 16:01] LABS: ALBUMIN 3.7 g/dl (3.4-5.0); BILIRUBIN,TOTAL 0.6 mg/dL (0.2-1); BLOOD UREA NITROGEN 58.1 mg/dL (7-18); CREATININE 3.1 mg/dL (0.55-1.3); POTASSIUM 4.7 mmol/L (3.5-5.1); TOT PROT 7.7 g/dl (6.4-8.2)
[2020-03-29] MEDS ORDERED: ASPIRIN 325 MG TABLET PO ONE (16:15)
[2020-03-29] MEDS ORDERED: FUROSEMIDE 40 MG TABLET (FP) PO ONE (16:39)
[2020-03-29] MEDS ORDERED: FUROSEMIDE 40 MG TABLET (FP) ONE (16:54)
[2020-03-29] MEDS ORDERED: ASPIRIN 81 MG CHEWABLE TABLETS ONE (16:54)
--- OUTSIDE RECORDS SUMMARY | 2020-03-29 17:26 | XMS ---
:1950 Author Organization [facility] Support Name Relationship Address Phone RE, RETIRED Unavailable Unavailable Unavailable RE Unavailable Unavailable Unavailable [place] [address] JEFFERY KULKARNI [address] [place] [address] Re-disclosure Warning The records that you are [...] is protected by Article 27-F of the [facility] Public Health law. If you continue you may haveaccess to information: Regarding HIV / AIDS; Provided by facilities licensed or operated by the [facility] Office of Mental Health; or Provided by the [facility] Office for People With Developmental Disabilities. If such information is present, then the following [facility] mandated warning applies: This information has been [...] law may result in a fine or half-way sentence or both. A general authorization for the release of medical or other information is NOT sufficient authorization for further disclosure. Insurance Providers Payer name Policy type Policy ID Covered Covered green party's Policy P sally / Coverage green party ID relationship to [place] [facility] ormation type [place] MEDICAID [id number] SP [id number] HEALTH FIRST [id number] SP [id number] MEDICARE Dental [id number] S [id number] T-1 [employer] MLTC Medicaid [id number] S [id number] Special Billing Dental [id number] S [id number] [employer] MCRE MNGD Care Affinity [id number] S [id number] Medicare Manage Care Medicare-Blue [id number] S [id number] Cross/Blue Shield Medicaid [id number] S [id number] Regular Clinic Visit Medicaid [id number] S [id number] Medicare Dental Medicare [id number] S [id number] A [facility] Results ID Date Data Source [id number] 03/03/2020 10:21:00 PM EDT [facility] Name Value Range Interpretation Description Data Sup porting Code Source(s) Document(s ) [facility] coronavirus 2 RNA This lab was ordered by Elvi hernández/Rosalino and reported by [facility]. ID Date Data Source [id number] 12/23/2019 09:41:00 AM EDT [facility] Name Value Range Interpretation Description Data Sup porting Code Source(s) Document(s ) [facility] coronavirus 2 RNA This lab was ordered by Elvi hernández/Rosalino and reported by [facility]. ID Date Data Source [id number] 11/04/2019 01:21:00 PM EDT [facility] Name Value Range Interpretation Description Data Sup porting Code Source(s) Document(s ) [facility] coronavirus 2 RNA This lab was ordered by Elvi hernández/Rosalino and reported by [facility]. ID Date Data Source [id number] 11/02/2019 05:07:00 PM EDT [facility] Name Value Range Interpretation Description Data Sup porting Code Source(s) Document(s ) [facility] coronavirus 2 RNA This lab was ordered by Elvi hernández/Rosalino and reported by [facility]. ID Date Data Source [id number] 10/28/2019 12:00:00 AM EDT [facility] Name Value Range Interpretation Code Description Data Sheryl rce(s) Supporting Document(s ) 2018-nCoV [facility] RNA XXX ARIELLE+probe- Imp This lab [facility] and reported by [employer] ID Date Data Source [id number] 09/25/2019 12:00:00 AM EDT [facility] Name Value Range Interpretation Code Description Data Sheryl rce(s) Supporting Document(s ) 2018-nCoV [facility] RNA XXX ARIELLE+probe- Imp This lab was ordered by [facility] kale nd reported by [employer] Procedure
[2020-03-29 17:39] LABS: MAGNESIUM 2.7 mg/dL (1.8-2.4); PHOSPHOROUS 5.2 mg/dL (2.5-4.9)
[2020-03-29] MEDS ORDERED: HEPARIN NA (PORCINE) 5,000 UNITS/ML 1ML VIAL SQ SCH (18:00)
--- NOTE | 2020-03-29 18:04 | HP ---
CHIEF COMPLAINT: difficulty speaking PCP: HISTORY OF PRESENT ILLNESS: Patient is a 69 year old male with history of coronary artery disease (s/p stent placed in 2007), hyperlipidemia, diabetes mellitus, HFrEF (EF 37% stress test 09/2016, s/p AICD placement) orthostatic hypotension, presents with complaint of difficulty speaking. History obtained with assistance of daughter (Shanel [phone]) at bedside. She endorses the symptoms began two days ago, where patient was noticed to have difficut time speaking. She noted that patient had increased coughing with phlem production, and spoke with primary care physician who beleived the patient may have had upper respiratory infection. However, patient reportedly wrote a note to his , stating that he had difficulty finding words. The daughter called neurologist (Dr. Mcclendon) who advised that they proceed to Emergency Room for evaluation. She denies any preceding trauma or fall in the past week. Denies any recent changes in medication. She denies any noted weakness, or facial asymmetry. No recent fevers or chills. ER course was notable for: (1) CT head (2) (3) Recent Travel: denies PAST MEDICAL HISTORY: coronary artery disease,, hyperlipidemia, diabetes mellitus, HFrEF, orthostatic hypotension, PAST SURGICAL HISTORY: AICD placement, PCI with stent placement, eye laser surgery for retinopathy Social History: Lives with , daughter assists as home health aide. At baseline able to communicate and make needs known. Smoking: Denies Alcohol: Denies Drugs: Denies Allergies No Known Drug Allergies Allergy (Verified 10/05/16 20:57) HOME MEDICATIONS: Home Medications Medication Instructions Recorded Insulin Glargine,Hum.rec.anlog 40 units SQ HS #0 unit 10/09/16 [Lantus Solostar PEN -] Linagliptin [Tradjenta] 5 mg PO ONCE #0 tab 10/09/16 Rosuvastatin Calcium [Crestor] 40 mg PO HS #0 tab 10/09/16 Tamsulosin HCl [Flomax] 0.4 mg PO ONCE #0 cap 10/09/16 Aspirin [ASA -] 81 mg PO DAILY 10/15/17 Magnesium Oxide [Mag-Ox -] 400 mg PO DAILY 10/15/17 Midodrine HCl 5 mg PO BID 10/15/17 REVIEW OF SYSTEMS As per HPI. Unable to obtain further, given patient's clinical condition PHYSICAL EXAMINATION Vital Signs - 24 hr 03/29/20 12:50 Temperature 97.9 F Pulse Rate 70 Respiratory 17 Rate Blood Pressure 115/69 O2 Sat by Pulse 100 Oximetry (%) GENERAL: The patient is awake, alert, and fully oriented, in no acute distress. HEAD: Normocephalic, atraumatic. EYES: PERRL, extraocular movements intact, sclera anicteric, conjunctiva clear. ENT: Oropharynx clear, without erythema or exudates. Moist mucous membranes. NECK: Trachea midline, full range of motion. Supple without lymphadenopathy. LUNGS: Breath sounds equal, clear to auscultation bilaterally. No wheezes, no crackles. No accessory muscle use. HEART: Regular rate and rhythm. S1, S2 without murmur, rub or gallop. ABDOMEN: Soft, nondistended, nontender to light and deep palpation x4 quadrants. No rebound tenderness, no guarding. Normoactive bowel sounds x4 quadrants. No hepatosplenomegaly, no masses appreciated. EXTREMITIES: 2+ radial, dorsalis pedis pulses bilaterally. Warm, well-perfused. No lower extremity edema bilaterally. Strength 5/5 bilateral upper and lower extremities. Negative pronator drift bilateral upper and lower extremities. NEUROLOGICAL: Cranial nerves II through XII grossly intact. Patient attempts to speak, however phonation is delayed and slurred. PSYCH: Normal mood, normal affect upon my encounter. SKIN: Warm, dry. Laboratory Results - last 24 hr 03/29/20 03/29/20 03/29/20 15:03 15:03 15:03 WBC 8.0 RBC 3.69 L Hgb 12.1 Hct 35.6 MCV 96.3 H MCH 32.7 MCHC 34.0 RDW 15.3 D Plt Count 190 MPV 8.4 Absolute Neuts (auto) 5.2 Neutrophils % 64.4 Lymphocytes % 18.4 D Monocytes % 9.8 Eosinophils % 6.2 H Basophils % 1.2 Nucleated RBC % 0 PT with INR 12.80 INR 1.04 PTT (Actin FS) 18.9 L Sodium Potassium Chloride Carbon Dioxide Anion Gap BUN Creatinine Est GFR (CKD-EPI)AfAm Est GFR (CKD-EPI)NonAf Random Glucose Calcium Phosphorus Magnesium Total Bilirubin AST ALT Alkaline Phosphatase Creatine Kinase Troponin I Total Protein Albumin Triglycerides 156 H Cholesterol 121 Total LDL Cholesterol 67 HDL Cholesterol 36 L Blood Type Antibody Screen 03/29/20 03/29/20 15:03 15:03 WBC RBC Hgb Hct MCV MCH MCHC RDW Plt Count MPV Absolute Neuts (auto) Neutrophils % Lymphocytes % Monocytes % Eosinophils % Basophils % Nucleated RBC % PT with INR INR PTT (Actin FS) Sodium 133 L Potassium 4.7 Chloride 98 Carbon Dioxide 28 Anion Gap 7 L BUN 58.1 H Creatinine 3.1 H Est GFR (CKD-EPI)AfAm 22.56 Est GFR (CKD-EPI)NonAf 19.47 Random Glucose 147 H Calcium 9.0 Phosphorus 5.2 H Magnesium 2.7 H Total Bilirubin 0.6 AST 41 H ALT 54 Alkaline Phosphatase 178 H Creatine Kinase 144 Troponin I 0.23 H Total Protein 7.7 Albumin 3.7 Triglycerides Cholesterol Total LDL Cholesterol HDL Cholesterol Blood Type O POSITIVE Antibody Screen Negative ASSESSMENT/PLAN: Patient is a 69 year old male with history of coronary artery disease (s/p stent placed in 2007), hyperlipidemia, diabetes mellitus, HFrEF (EF 37% stress test 09/2016, s/p AICD placement) orthostatic hypotension, presents with complaint of difficulty speaking. Expressive aphasia -Concern for acute stroke given consistent difficulty in patient's word finding, and phonation -CT head does not reveal acute pathology. Chronic infarcts noted. -Received Aspirin 324mg in ED. Continue Aspirin and home Statin. -Obtain MRI brain STAT -Cardiac transthoracic ECHO -Carotid duplex -NPO -Gentle hydration with IV normal saline at 42mL/ hour X1 liter while NPO -Speech pathology evaluation -Cardiac telemetry monitoring -Neurology evaluation (Dr. Mcclendon) requested -Fall , aspiration precautions Troponinemia -Chronically elevated, across multiple admission in past. Denies chest pain. Pending repeat troponin -EKG reveals RBBB, which has been seen on prior ECG as well -Cardiology consult (Dr. Rushing) -Telemetry monitoring History of diabetes mellitus -Insulin sliding scale ACHS -Fingerstick blood glucose monitoring History of coronary artery disease -Continue home Aspirin, Statin Prostatic hyperplasia -Continue home Tamsulosin History of heart failure reduced ejection fraction -Patient received dose home Lasix in ED. Holding for now as patient euvolemic, in favor of gentle hydration while NPO -Cardiac telemetry monitoring -Holding home Coreg in setting of borderline blood pressures History of orthostatic hypotension -Reportedly takes Northera. Will need to reconcile dose and reinstate once clinically appropriate. Chronic kidney disease -BUN 58/ Cr 3.1 -Gentle hydration- currently euvolemic -Monitor intake, output -Nephrology consult (Dr. Merida) FEN -Gentle hydration with IV normal saline at 42mL/ hour -Follow BMP -NPO Prophylaxis -Heparin 5000 units subq TID Disposition -Admit to Stroke Floor. Family Medical History Family History: Unremarkable Visit type - Medication Review Med list reviewed for High Risk Meds patients 65 and older: Yes - Emergency Visit Emergency Visit: Yes ED Registration Date: 03/29/20 Care time: The patient presented to the Emergency Department on the above date and was hospitalized for further evaluation of their emergent condition. - New Patient This patient is new to me today: Yes Date on this admission: 03/29/20 - Critical Care Critical Care patient: No ATTENDING PHYSICIAN STATEMENT I saw and evaluated the patient. I reviewed the resident's note and discussed the case with the resident. I agree with the resident's findings and plan as documented. SUBJECTIVE: OBJECTIVE: ASSESSMENT AND PLAN:
[2020-03-29] MEDS ORDERED: TAMSULOSIN HCL 0.4 MG CAP PO SCH (18:15)
[2020-03-29] MEDS ORDERED: MAGNESIUM 2GM/50ML STERILE WATER IVPB IVPB ONE (19:17)
[2020-03-29] MEDS: INSULIN SLIDING SCALE (NOVOLOG) 1 VIAL SQ SCH (19:24)
--- NOTE | 2020-03-29 19:36 | PN ---
Teaching Attending Note Name of Resident: Roosevelt iTnajero ATTENDING PHYSICIAN STATEMENT I saw and evaluated the patient. I reviewed the resident's note and discussed the case with the resident. I agree with the resident's findings and plan as documented. SUBJECTIVE: Patient seen and examined at bedside, admitted for expressive aphasia for the past 2-3 days, now still struggling to find words during conversation, CT head s/o old infarcts. VSS. OBJECTIVE: GENERAL: The patient is awake, alert, and fully oriented, in no acute distress. HEAD: Normocephalic, atraumatic. EYES: PERRL, extraocular movements intact, sclera anicteric, conjunctiva clear. ENT: Oropharynx clear, without erythema or exudates. Moist mucous membranes. NECK: Trachea midline, full range of motion. Supple without lymphadenopathy. LUNGS: Breath sounds equal, clear to auscultation bilaterally. No wheezes, no crackles. No accessory muscle use. HEART: Regular rate and rhythm. S1, S2 without murmur, rub or gallop. ABDOMEN: Soft, nondistended, nontender to light and deep palpation x4 quadrants. No rebound tenderness, no guarding. Normoactive bowel sounds x4 quadrants. No hepatosplenomegaly, no masses appreciated. EXTREMITIES: 2+ radial, dorsalis pedis pulses bilaterally. Warm, well-perfused. No lower extremity edema bilaterally. Strength 5/5 bilateral upper and lower extremities. Negative pronator drift bilateral upper and lower extremities. NEUROLOGICAL: Cranial nerves II through XII grossly intact. Patient attempts to speak, however phonation is delayed and slurred. PSYCH: Normal mood, normal affect upon my encounter. SKIN: Warm, dry. Vital Signs (72 hours) 03/29/20 03/29/20 03/30/20 12:50 23:19 02:36 Temperature 97.9 F 97.7 F Pulse Rate 70 Pulse Rate [ 72 71 Right Radial] Respiratory 17 18 22 H Rate Blood Pressure 115/69 Blood Pressure 100/58 L 103/72 [Right Arm] O2 Sat by Pulse 100 100 96 Oximetry (%) 03/30/20 03/30/20 03/30/20 06:39 07:15 13:30 Temperature 97.7 F 97.7 F Pulse Rate Pulse Rate [ 71 75 Right Radial] Respiratory 18 17 Rate Blood Pressure Blood Pressure 103/71 121/79 [Right Arm] O2 Sat by Pulse 99 99 100 Oximetry (%) Laboratory Results - last 24 hr 03/29/20 03/29/20 03/29/20 14:32 15:03 19:08 WBC RBC Hgb Hct MCV MCH MCHC RDW Plt Count MPV Absolute Neuts (auto) Neutrophils % Lymphocytes % Monocytes % Eosinophils % Basophils % Nucleated RBC % Sodium Potassium Chloride Carbon Dioxide Anion Gap BUN Creatinine Est GFR (CKD-EPI)AfAm Est GFR (CKD-EPI)NonAf POC Glucometer 109 Random Glucose Hemoglobin A1c % Calcium Phosphorus 5.2 H Magnesium 2.7 H Total Bilirubin AST ALT Alkaline Phosphatase Troponin I Total Protein Albumin TSH Urine Color Urine Appearance Urine pH Ur Specific Bor[place] Urine Protein Urine Glucose (UA) Urine Ketones Urine Blood Urine Nitrite Urine Bilirubin Urine Urobilinogen Ur Leukocyte Esterase Urine WBC (Auto) Urine RBC (Auto) Urine Casts (Auto) U Epithel Cells (Auto) Urine Bacteria (Auto) COVID-19 (ARIELLE) Not detected 03/29/20 03/29/20 03/29/20 19:15 21:07 22:12 WBC RBC Hgb Hct MCV MCH MCHC RDW Plt Count MPV Absolute Neuts (auto) Neutrophils % Lymphocytes % Monocytes % Eosinophils % Basophils % Nucleated RBC % Sodium Potassium Chloride Carbon Dioxide Anion Gap BUN Creatinine Est GFR (CKD-EPI)AfAm Est GFR (CKD-EPI)NonAf POC Glucometer Random Glucose Hemoglobin A1c % Calcium Phosphorus Magnesium 2.3 Total Bilirubin AST ALT Alkaline Phosphatase Troponin I 0.25 H Total Protein Albumin TSH Urine Color Yellow Urine Appearance Clear Urine pH 6.0 Ur Specific [place] 1.011 Urine Protein 1+ H Urine Glucose (UA) Negative Urine Ketones Negative Urine Blood Negative Urine Nitrite Positive H Urine Bilirubin Negative Urine Urobilinogen 1.0 Ur Leukocyte Esterase Negative Urine WBC (Auto) 12 Urine RBC (Auto) 7 Urine Casts (Auto) 0 U Epithel Cells (Auto) 4 Urine Bacteria (Auto) 1424 COVID-19 (ARIELLE) 03/30/20 03/30/20 03/30/20 06:15 06:15 06:15 WBC 6.6 RBC 3.41 L Hgb 10.9 L Hct 32.3 L MCV 94.8 MCH 32.0 MCHC 33.7 RDW 14.8 Plt Count 175 MPV 8.3 Absolute Neuts (auto) 4.1 Neutrophils % 61.6 Lymphocytes % 21.0 Monocytes % 10.1 Eosinophils % 6.1 H Basophils % 1.2 Nucleated RBC % 0 Sodium 136 Potassium 3.7 Chloride 102 Carbon Dioxide 26 Anion Gap 8 BUN 54.6 H Creatinine 2.7 H Est GFR (CKD-EPI)AfAm 26.67 Est GFR (CKD-EPI)NonAf 23.01 POC Glucometer Random Glucose 73 L Hemoglobin A1c % 6.5 H Calcium 8.7 Phosphorus 4.0 Magnesium 2.8 H Total Bilirubin 0.9 AST 30 ALT 44 Alkaline Phosphatase 151 H Troponin I 0.23 H Total Protein 7.1 Albumin 3.3 L TSH 2.54 D Urine Color Urine Appearance Urine pH Ur Specific [place] Urine Protein Urine Glucose (UA) Urine Ketones Urine Blood Urine Nitrite Urine Bilirubin Urine Urobilinogen Ur Leukocyte Esterase Urine WBC (Auto) Urine RBC (Auto) Urine Casts (Auto) U Epithel Cells (Auto) Urine Bacteria (Auto) COVID-19 (ARIELLE) 03/30/20 03/30/20 03/30/20 08:22 11:26 16:23 WBC RBC Hgb Hct MCV MCH MCHC RDW Plt Count MPV Absolute Neuts (auto) Neutrophils % Lymphocytes % Monocytes % Eosinophils % Basophils % Nucleated RBC % Sodium Potassium Chloride Carbon Dioxide Anion Gap BUN Creatinine Est GFR (CKD-EPI)AfAm Est GFR (CKD-EPI)NonAf POC Glucometer 84 80 177 Random Glucose Hemoglobin A1c % Calcium Phosphorus Magnesium Total Bilirubin AST ALT Alkaline Phosphatase Troponin I Total Protein Albumin TSH Urine Color Urine Appearance Urine pH Ur Specific [place] Urine Protein Urine Glucose (UA) Urine Ketones Urine Blood Urine Nitrite Urine Bilirubin Urine Urobilinogen Ur Leukocyte Esterase Urine WBC (Auto) Urine RBC (Auto) Urine Casts (Auto) U Epithel Cells (Auto) Urine Bacteria (Auto) COVID-19 (ARIELLE) Home Medications Medication Instructions Recorded Linagliptin [Tradjenta] 5 mg PO ONCE #0 tab 10/09/16 Aspirin [ASA -] 81 mg PO DAILY 10/15/17 Carvedilol [Coreg -] 3.125 mg PO BID 03/29/20 Furosemide [Lasix] 40 mg PO BID 03/29/20 Insulin (Levemir) [Levemir Vial] 49 unit SQ DAILY 03/29/20 Fluoxetine HCl [Prozac -] 20 mg PO DAILY 03/30/20 Magnesium 400 mg PO DAILY 03/30/20 Metoprolol Succinate [Toprol Xl] 50 mg PO DAILY 03/30/20 Midodrine HCl 5 mg PO BID 03/30/20 Rosuvastatin [Crestor -] 40 mg PO DAILY 03/30/20 Tamsulosin HCl [Flomax] 0.4 mg PO DAILY 03/30/20 Current Medications Generic Name Dose Route Start Last Admin Trade Name Sammq PRN Reason Stop Dose Admin Aspirin 81 mg 03/30/20 10:00 03/30/20 10:08 Asa - PO 81 mg DAILY JEREMY Administration Atorvastatin Calcium 40 mg 03/29/20 19:45 03/29/20 22:05 Lipitor - PO 40 mg HS JEREMY Administration Heparin Sodium (Porcine) 5,000 unit 03/30/20 06:00 03/30/20 14:43 Heparin - SQ 5,000 unit TID JEREMY Administration Ceftriaxone Sodium 1 gm/ 50 mls @ 100 mls/hr 03/31/20 10:00 Dextrose IVPB 04/05/20 09:59 DAILY JEREMY Protocol Insulin Aspart 1 vial 03/29/20 18:15 03/30/20 16:28 Novolog Vial Sliding Scale - SQ 2 units TIDAC JEREMY Administration Protocol ASSESSMENT AND PLAN: 69 M Subacute CVA w/ expressive aphasia HTN HLD HFrEF T2DM BPH Plan: Cont. high instensity statin, ASA Obtain Echo/Carotids, Brain MRI Neurology following Speech and swallow evaluation NPO for now pending SS PT/rehab referral Strict glycemic control Keep BP systolic <180mmHg DVT ppx: Heparin SC Tele monitoring
--- NOTE | 2020-03-29 21:35 | PN ---
Progress Note (short form) - Note Progress Note: Dr Schreiber
[2020-03-29] MEDS ORDERED: ATORVASTATIN CA 40 MG TABLET (FP) ONE (21:58)
[2020-03-29] MEDS ORDERED: TAMSULOSIN HCL 0.4 MG CAP ONE (21:58)
[2020-03-29] MEDS ORDERED: HEPARIN NA (PORCINE) 5,000 UNITS/ML 1ML VIAL ONE (21:59)
[2020-03-29] MEDS ORDERED: ROSUVASTATIN CA 40 MG TABLET PO SCH (22:00)
[2020-03-29] MEDS: ATORVASTATIN CA 40 MG TABLET (FP) PO SCH (22:05)
[2020-03-29 22:23] LABS: EPI CELLS 4 /uL (0-25.1); HYALINE CASTS 0 /uL (0-3.1); URINE APPEARANCE CLEAR; URINE BACTERIA 1424 /uL (0-1359); URINE BILIRUBIN NEGATIVE (NEGATIVE); URINE COLOR YELLOW; URINE GLUCOSE (UA) NEGATIVE (NEGATIVE); URINE KETONE NEGATIVE (NEGATIVE); URINE LEUK ESTERASE NEGATIVE (NEGATIVE); URINE NITRITE POSITIVE (NEGATIVE); URINE PROTEIN 1+ (NEGATIVE); URINE RBC 7 /uL (0-23.9); URINE WBC 12 /uL (0-25.8)
[2020-03-30] MEDS ORDERED: MAGNESIUM SULF 50% (8.12 MEQ/2 ML-1 GM VIAL) IVPB ONE (00:08)
[2020-03-30] MEDS ORDERED: MAGNESIUM 1GM/D5W - 1 GM/100 ML IVPB IVPB ONE (00:15)
[2020-03-30] MEDS ORDERED: HEPARIN NA (PORCINE) 5,000 UNITS/ML 1ML VIAL ONE ×2 (06:19→14:34)
[2020-03-30] MEDS: HEPARIN NA (PORCINE) 5,000 UNITS/ML 1ML VIAL SQ SCH ×3 (06:24→23:38)
[2020-03-30 07:39] LABS: BASO % 1.2 % (0-2.0); EOS % 6.1 % (0-4.5); HEMATOCRIT 32.3 % (35.4-49); HEMOGLOBIN 10.9 GM/dL (11.7-16.9); MCHC 33.7 g/dl (32.0-35.9); MEAN CELL VOLUME 94.8 fl (80-96); MEAN PLT VOLUME 8.3 fl (7.5-11.1); MONO % 10.1 % (3.8-10.2); NEUT % 61.6 % (42.8-82.8); PLATELET COUNT 175 K/MM3 (134-434); RBC 3.41 M/mm3 (4.00-5.60); RDW 14.8 % (11.9-15.9); WHITE BLOOD COUNT 6.6 K/mm3 (4.0-10.0)
[2020-03-30 07:58] LABS: ALBUMIN 3.3 g/dl (3.4-5.0); BILIRUBIN,TOTAL 0.9 mg/dL (0.2-1); BLOOD UREA NITROGEN 54.6 mg/dL (7-18); CALCIUM 8.7 mg/dL (8.5-10.1); CREATININE 2.7 mg/dL (0.55-1.3); MAGNESIUM 2.8 mg/dL (1.8-2.4); POTASSIUM 3.7 mmol/L (3.5-5.1); TOT PROT 7.1 g/dl (6.4-8.2)
[2020-03-30] MEDS: INSULIN SLIDING SCALE (NOVOLOG) 1 VIAL SQ SCH ×3 (08:23→16:28)
[2020-03-30] MEDS ORDERED: CEFTRIAXONE 1,000 MG in DEXTROSE 5%-WATER - 50 ML IVPB ONE (09:48)
[2020-03-30] MEDS ORDERED: ASPIRIN 81 MG CHEWABLE TABLETS ONE (10:01)
[2020-03-30] MEDS ORDERED: CEFTRIAXONE 1 GM/50 ML BAG ONE ×2 (10:01→14:34)
[2020-03-30] MEDS: ASPIRIN 81 MG CHEWABLE TABLETS PO SCH (10:08)
--- NOTE | 2020-03-30 10:23 | CONSULT ---
Admitting History and Physical - Admission History of Present Illness: 69 year old male with history of coronary artery disease (s/p stent placed in 2007), hyperlipidemia, diabetes mellitus, HFrEF (EF 37% stress test 09/2016, s/p AICD placement) orthostatic hypotension, presents with complaint of difficulty speaking. History obtained with assistance of daughter (Shanel [phone]) at bedside. She endorses the symptoms began two days ago, where patient was noticed to have difficulty time speaking. She noted that patient had increased coughing with phlem production, and spoke with primary care physician who believed the patient may have had upper respiratory infection. However, patient reportedly wrote a note to his , stating that he had difficulty finding words. Selected Entries 03/30/20 03/30/20 02:36 06:39 Temperature 97.7 F 97.7 F Pulse Rate [ 71 71 Right Radial] Blood Pressure 103/72 103/71 [Right Arm] O2 Sat by Pulse 96 99 Oximetry (%) Oxygen Delivery Room Air Room Air Method Laboratory Tests 03/29/20 03/30/20 03/30/20 14:32 06:15 08:22 WBC 6.6 POC Glucometer 84 COVID-19 (ARIELLE) Pending Passed dysphagia screen. Reg diet ordered/tolerated History Source: Patient Limitations to Obtaining History: No Limitations, Language Barrier - Past Medical History Cardiovascular: Yes: HTN, Other (Pacemaker, Stents x2) Endocrine: Yes: Diabetes Mellitus - Past Surgical History Past Surgical History: Yes: None - Smoking History Smoking history: Never smoked Have you smoked in the past 12 months: No - Alcohol/Substance Use Hx Alcohol Use: No History - Admission Reason For Visit: SLURRED SPEECH - Diagnostics X-ray: Report Reviewed CT Scan: Report Reviewed - General Mental Status: Awake and Alert, Able to Follow Commands Attention: Intact Ability to Follow Directions: Good - Hearing Hearing: Functional Speech Evaluation - Communication Primary Language: BENGALI Communication: Yes: Simple Responses, Language Barrier - Speech Characteristics Voice Loudness: Normal Voice Pitch: Yes: Normal Voice Phonatory-based Quality: Yes: Normal Speech Pattern: Normal Speech Clarity: < 100% Nasal Resonance: Normal Articulation: Yes: Precise Rate of Speech: Intact - Language/Auditory Comprehension Observation: Able to respond to yes/no queries: Yes, Yes/No Confusion: No, Comprehends Conversational Speech: Yes - Swallow Evaluation/Bedside Assessment Current Nutritional Intake: Regular, Thin Liquids Oral Secretions: Yes: WFL Dentition: Yes: Adequate Facial Symmetry at Rest: Symmetrical Facial Symmetry on Retraction: Symmetrical Facial Movement: Controlled Sensation: Normal Against Resistance Opening: Normal Against Resistance Closing: Normal Pucker Lips: Normal Smile: Normal Lingual Movement: Normal, Symmetric Lingual Speed of Movement: Normal Lingual Movement Strgth Against Opposition: Normal Lingual Movement Characteristics: Normal Laryngeal Movement: Able to Palpate Rate of Intake: WFL Bolus Size: WFL Labial Seal: WFL A-P Transit: WFL Pocketing: None Timing of Swallow: WFL Coughing/Throat Clear: No Change in Voice: No Recommendations - Speech Evaluation, Impression/Plan Impression: Verbal, swallowing intact. Full language w/u deferred as seen in ED, without access for rn research. Speech was fluent - Dysphagia Impressions/Plan Swallowing Skills: WF Dysphagia Impressions: No Impairment *Silent aspiration: cannot be R/O at bedside Recommendations: Neuro Consult - Recommendations Diet Consistency: Regular Medication Administration: Whole with water Liquids: Thin Liquids
--- NOTE | 2020-03-30 11:22 | CON.CARD ---
Consult Consult Specialty:: Cardiology Referred by:: Hospitalist Medicine Reason for Consultation:: Cardiomyopathy s/p ICD - History of Present Illness Chief Complaint: Dysarthria History of Present Illness: Patient is a 69 year old male with history of coronary artery disease (s/p stent LAD placed in 2007), hyperlipidemia, diabetes mellitus, PAD s/p HAND[employer] HANGER tibioperoneal artery, CKD IV, HFrEF (LEVF 20-25% 10/2019, s/p AICD placement), last admission [facility] 03/04/2020, orthostatic hypotension (Shy-Drager), presents with complaint of difficulty speaking. History obtained with assistance of daughter (Shanel [phone]) at bedside. She endorses the symptoms began two days ago, where patient was noticed to have difficut time speaking. She noted that patient had increased coughing with phlem production, and spoke with primary care physician who beleived the patient may have had upper respiratory infection. However, patient reportedly wrote a note to his , stating that he had difficulty finding words. The daughter called neurologist (Dr. Mcclendon) who advised that they proceed to Emergency Room for evaluation. She denies any preceding trauma or fall in the past week. Denies any recent changes in medication. She denies any noted weakness, or facial asymmetry. He denies dyspnea. HCT shows chronic infarcts and SVID. Last saw Dr. Peng Collins CD 03/17/2020, ICD interrogation at that time showed no episodes of tachyarrhythmia or therapy. - History Source History Provided By: Medical Record Limitations to Obtaining History: Language Barrier - Past Medical History Cardio/Vascular: Yes: HTN, Other (Pacemaker, Stents x2) Endocrine: Yes: Diabetes Mellitus - Past Surgical History Past Surgical History: Yes: None - Alcohol/Substance Use Hx Alcohol Use: No - Smoking History Smoking history: Never smoked Have you smoked in the past 12 months: No Home Medications - Allergies Allergies/Adverse Reactions: Allergies Allergy/AdvReac Type Severity Reaction Status Date / Time No Known Drug Allergies Allergy Verified 10/05/16 20:57 - Home Medications Home Medications: Ambulatory Orders Linagliptin [Tradjenta] 5 mg PO ONCE #0 tab 10/09/16 Aspirin [ASA -] 81 mg PO DAILY 10/15/17 Carvedilol [Coreg -] 3.125 mg PO BID 03/29/20 Furosemide [Lasix] 40 mg PO BID 03/29/20 Insulin (Levemir) [Levemir Vial] 49 unit SQ DAILY 03/29/20 Fluoxetine HCl [Prozac -] 20 mg PO DAILY 03/30/20 Fluoxetine HCl [Prozac] 20 mg PO HS 03/30/20 Magnesium 400 mg PO DAILY 03/30/20 Magnesium Oxide [Mag-Ox -] 400 mg PO DAILY 03/30/20 Metoprolol Succinate [Toprol Xl] 50 mg PO DAILY 03/30/20 Midodrine HCl 5 mg PO BID 03/30/20 Rosuvastatin [Crestor -] 40 mg PO DAILY 03/30/20 Tamsulosin HCl [Flomax] 0.4 mg PO DAILY 03/30/20 Review of Systems - Review of Systems Neurological: reports: Change in Speech Vital Signs: Vital Signs Temperature 97.7 F 03/30/20 06:39 Pulse Rate 71 03/30/20 06:39 Respiratory Rate 18 03/30/20 06:39 Blood Pressure 103/71 03/30/20 06:39 O2 Sat by Pulse Oximetry (%) 99 03/30/20 06:39 Constitutional: Yes: No Distress, Calm Neck: Yes: Supple Respiratory: Yes: Regular, CTA Bilaterally Gastrointestinal: Yes: Normal Bowel Sounds, Soft Cardiovascular: Yes: Regular Rate and Rhythm JVD: No Carotid Bruit: No Heart Sounds: Yes: S1, S2 Edema: No Neurological: Yes: Dysarthria - Other Data Labs, Other Data: CBC, BMP 03/30/20 06:15 03/30/20 06:15 INR, PTT INR 1.04 (0.83-1.09) 03/29/20 15:03 Troponin, BNP 03/29/20 03/29/20 03/30/20 15:03 19:15 06:15 Troponin I 0.23 H 0.25 H 0.23 H Troponin, BNP 03/29/20 03/29/20 03/30/20 15:03 19:15 06:15 Troponin I 0.23 H 0.25 H 0.23 H NSR @ 74 RBBB LAD Ejection Fraction %: LVEF < 40 % Problem List - Problems (1) Subendocardial ischemia Code(s): I24.8 - OTHER FORMS OF ACUTE ISCHEMIC HEART DISEASE (2) Chronic systolic dysfunction of left ventricle Code(s): I51.9 - HEART DISEASE, UNSPECIFIED (3) ICD (implantable cardioverter-defibrillator) in place Code(s): Z95.810 - PRESENCE OF AUTOMATIC (IMPLANTABLE) CARDIAC DEFIBRILLATOR (4) CKD (chronic kidney disease) Code(s): N18.9 - CHRONIC KIDNEY DISEASE, UNSPECIFIED Qualifiers: Chronic kidney disease stage: stage 4 (severe) Qualified Code(s): N18.4 - Chronic kidney disease, stage 4 (severe) (5) Slurred speech Code(s): R47.81 - SLURRED SPEECH (6) Elevated troponin Code(s): R74.8 - ABNORMAL LEVELS OF OTHER SERUM ENZYMES (7) Hyperlipidemia Code(s): E78.5 - HYPERLIPIDEMIA, UNSPECIFIED Qualifiers: Hyperlipidemia type: pure hypercholesterolemia Qualified Code(s): E78.00 - Pure hypercholesterolemia, unspecified; E78.0 - Pure hypercholesterolemia (8) Shy-Drager syndrome Code(s): G90.3 - MULTI-SYSTEM DEGENERATION OF THE AUTONOMIC NERVOUS SYSTEM Assessment/Plan 11/03/2019 Lesa echo: Interpretation Summary The left ventricle is mildly dilated.There is borderline concentric left ventricular hypertrophy. Severe LV dysfunction with visual EF 20-25% with diffuse hypokinesis worse in inferior and posterior wall. Grade 2 LV diastolic dysfunction suggests abnormal relaxation, and elevated left atrial pressure.There is a pacemaker or defibrillator lead in the right heart. Moderate left atrial enlargement There is mild to moderate mitral regurgitation. There is mild tricuspid regurgitation. 1. Dysarthria r/o acute stroke 2. CAD s/p stent 3. Ischemic cardiomyopathy with HFrEF (EF 20-25%, s/p AICD placement) and subendocardial ischemia 4. Hyperlipidemia 5. Type 2 DM 6. Orthostatic hypotension/Shy-Drager on Northera 7. CKD 8. UTI P:1. F/u echo with bubble study, carorid doppler, no MRI due to ICD, S&S and neuro eval, f/u TSH, lipid panel, trops plateaued 2. Telemetry monitoring to r/o PAF, interrogate ICD to assess for PAF 3. Continue ASA 81 qd, carvedilol 3.125 bid, Crestor 40 qd, Lasix 40 bid as hemodynamics tolerate, resume Northera 4. Not on VERONICA-I/ARB/ARNI/Santana inhibition due to CKD and Shy-Drager's 5. Empiric ceftriaxone per C&S 6. Thank you for consultative opportunity
--- NOTE | 2020-03-30 12:45 | ECHO ---
Name: CHELA KULKARNI Exam:Adult Echocardiogram Study Date: 03/30/2020 11:46 AM Age: 69 yrs Reason For Study: concern for cva Height: 72 in Weight: 173 lb BSA: 2.0 m2 MMode/2D Measurements & Calculations IVSd: 0.87 cm Ao root diam: 3.1 cm LVIDd: 5.9 cm LA dimension: 4.9 cm LVIDs: 5.3 cm LVPWd: 1.1 cm LVPWs: 1.4 cm EDV(Teich): 175.2 ml ESV(Teich): 136.9 ml LVOT diam: 2.2 cm LAV (MOD-bp): 106.0 ml RV S Derrick: 8.8 cm/sec Doppler Measurements & Calculations MV V2 max: 81.4 cm/sec MV E max derrick: 65.5 cm/sec MV max P.7 mmHg MV A max derrick: 28.1 cm/sec MV V2 mean: 56.0 cm/sec MV E/A: 2.3 MV mean P.4 mmHg MV dec time: 0.14 sec MV V2 VTI: 19.1 cm Ao V2 max: 63.8 cm/sec AI max derrick: 163.7 cm/sec Ao max P.6 mmHg AI max P.7 mmHg AI P1/2t: 349.5 msec AI dec slope: 137.2 cm/sec2 MR max derrick: 466.6 cm/sec TR max derrick: 314.4 cm/sec MR max P.4 mmHg TR max P.9 mmHg PA V2 max: 58.2 cm/sec PA max P.4 mmHg Procedure A complete two-dimensional transthoracic echocardiogram was performed (2D, M-mode, Doppler and color flow Doppler). Left Ventricle The left ventricle is moderately dilated. Left ventricular systolic function is severely reduced. Eje ction Fraction = 15-20%. There is severe global hypokinesis of the left ventricle. Right Ventricle The right ventricle is normal in size and function. There is a pacemaker lead in the right ventricle. Atria The left atrium is moderately dilated. Right atrial size is normal. Mitral Valve There is moderate mitral regurgitation. Tricuspid Valve There is moderate tricuspid regurgitation. Right ventricular systolic pressure is normal. Aortic Valve No hemodynamically significant valvular aortic stenosis. Mild aortic regurgitation. Pulmonic Valve There is no pulmonic valvular regurgitation. Great Vessels The aortic root is normal size. Pericardium/Pleura There is no pericardial effusion. Interpretation Summary The left ventricle is moderately dilated. Left ventricular systolic function is severely reduced. There is severe global hypokinesis of the left ventricle. The right ventricle is normal in size and function. There is a pacemaker lead in the right ventricle. The left atrium is moderately dilated. There is moderate mitral regurgitation. There is moderate tricuspid regurgitation. Mild aortic regurgitation. MD García Basurto 03/30/2020 12:45 PM
--- NOTE | 2020-03-30 13:35 | EKG ---
Test Reason : Blood Pressure : / mmHG Vent. Rate : 078 BPM Atrial Rate : 078 BPM P-R Int : 248 ms QRS Dur : 156 ms QT Int : 474 ms P-R-T Axes : 064 -82 093 degrees QTc Int : 540 ms POOR DATA QUALITY, INTERPRETATION MAY BE ADVERSELY AFFECTED SINUS RHYTHM WITH 1ST DEGREE A-V BLOCK POSSIBLE LEFT ATRIAL ENLARGEMENT LEFT AXIS DEVIATION RIGHT BUNDLE BRANCH BLOCK INFERIOR INFARCT (CITED ON OR BEFORE 29-MAR-2020) ANTERIOR INFARCT (CITED ON OR BEFORE 29-MAR-2020) T WAVE ABNORMALITY, CONSIDER LATERAL ISCHEMIA ABNORMAL ECG WHEN COMPARED WITH ECG OF 29-MAR-2020 14:51, AR INTERVAL HAS INCREASED Confirmed by KATHY CROFT MD ([id number]) on 03/30/2020 1:35:30 PM Referred By: Confirmed By:KATHY CROFT MD
--- NOTE | 2020-03-30 13:37 | EKG ---
Test Reason : Blood Pressure : / mmHG Vent. Rate : 074 BPM Atrial Rate : 074 BPM P-R Int : 160 ms QRS Dur : 180 ms QT Int : 500 ms P-R-T Axes : 054 -81 081 degrees QTc Int : 555 ms NORMAL SINUS RHYTHM POSSIBLE LEFT ATRIAL ENLARGEMENT LEFT AXIS DEVIATION RIGHT BUNDLE BRANCH BLOCK INFERIOR INFARCT , AGE UNDETERMINED ANTERIOR INFARCT , AGE UNDETERMINED ABNORMAL ECG WHEN COMPARED WITH ECG OF 15-OCT-2017 04:20, QUESTIONABLE CHANGE IN QRS DURATION ANTERIOR INFARCT IS NOW PRESENT INFERIOR INFARCT IS NOW PRESENT Confirmed by KATHY CROFT MD ([id number]) on 03/30/2020 1:37:31 PM Referred By: Confirmed By:KATHY CROFT MD
--- NOTE | 2020-03-30 14:06 | PN ---
Physical Exam: SUBJECTIVE: Patient seen and examined in ED. Pt squaxin language was Guamanian. Used VesselVanguard tube buffer. Pt stated he had difficulty speaking recently. Pt denied any headache, lightheadedness, fevers, chills, SOB, c/p, abdominal pain, numbness or tingling. OBJECTIVE: Vital Signs Period Temp Pulse Resp BP Sys/Alva Pulse Ox Last 24 Hr 97.7 F-97.7 F 71-75 17-22 100-121/58-79 96-100 GENERAL: AAOx3, Not in acute distress HEENT: NCAT, EOMI, dry mucus membranes. No flattening of nasolabial folds. CARDIAC: RRR, S1, S2 present. No murmurs PULM: CTA b/l, no wheezes or accessory muscle use. ABD: Soft, nondistended, nontender to palpation, normoactive bowel sounds. EXTREMITIES: Warm, well-perfused. No edema NEURO: CN II-XII grossly intact. Strength b/l UE and LE 5/5. Sensation intact. SKIN: Warm, dry. Laboratory Last Values WBC 6.6 K/mm3 (4.0-10.0) 03/30/20 06:15 RBC 3.41 M/mm3 (4.00-5.60) L 03/30/20 06:15 Hgb 10.9 GM/dL (11.7-16.9) L 03/30/20 06:15 Hct 32.3 % (35.4-49) L 03/30/20 06:15 MCV 94.8 fl (80-96) 03/30/20 06:15 MCH 32.0 pg (25.7-33.7) 03/30/20 06:15 MCHC 33.7 g/dl (32.0-35.9) 03/30/20 06:15 RDW 14.8 % (11.9-15.9) 03/30/20 06:15 Plt Count 175 K/MM3 (134-434) 03/30/20 06:15 MPV 8.3 fl (7.5-11.1) 03/30/20 06:15 Absolute Neuts (auto) 4.1 K/mm3 (1.5-8.0) 03/30/20 06:15 Neutrophils % 61.6 % (42.8-82.8) 03/30/20 06:15 Lymphocytes % 21.0 % (8-40) 03/30/20 06:15 Monocytes % 10.1 % (3.8-10.2) 03/30/20 06:15 Eosinophils % 6.1 % (0-4.5) H 03/30/20 06:15 Basophils % 1.2 % (0-2.0) 03/30/20 06:15 Nucleated RBC % 0 % (0-0) 03/30/20 06:15 PT with INR 12.80 SEC (9.7-13.0) 03/29/20 15:03 INR 1.04 (0.83-1.09) 03/29/20 15:03 PTT (Actin FS) 18.9 SECONDS (25.2-36.5) L 03/29/20 15:03 Sodium 136 mmol/L (136-145) 03/30/20 06:15 Potassium 3.7 mmol/L (3.5-5.1) 03/30/20 06:15 Chloride 102 mmol/L (98-107) 03/30/20 06:15 Carbon Dioxide 26 mmol/L (21-32) 03/30/20 06:15 Anion Gap 8 MMOL/L (8-16) 03/30/20 06:15 BUN 54.6 mg/dL (7-18) H 03/30/20 06:15 Creatinine 2.7 mg/dL (0.55-1.3) H 03/30/20 06:15 Est GFR (CKD-EPI)AfAm 26.67 03/30/20 06:15 Est GFR (CKD-EPI)NonAf 23.01 03/30/20 06:15 POC Glucometer 80 UNITS (80-120) 03/30/20 11:26 Random Glucose 73 mg/dL (74-106) L 03/30/20 06:15 Hemoglobin A1c % 6.5 % (4.2-6.3) H 03/30/20 06:15 Calcium 8.7 mg/dL (8.5-10.1) 03/30/20 06:15 Phosphorus 4.0 mg/dL (2.5-4.9) 03/30/20 06:15 Magnesium 2.8 mg/dL (1.8-2.4) H 03/30/20 06:15 Total Bilirubin 0.9 mg/dL (0.2-1) 03/30/20 06:15 AST 30 U/L (15-37) 03/30/20 06:15 ALT 44 U/L (13-61) 03/30/20 06:15 Alkaline Phosphatase 151 U/L (45-117) H 03/30/20 06:15 Creatine Kinase 144 U/L (26-308) 03/29/20 15:03 Troponin I 0.23 ng/ml (0.00-0.05) H 03/30/20 06:15 Total Protein 7.1 g/dl (6.4-8.2) 03/30/20 06:15 Albumin 3.3 g/dl (3.4-5.0) L 03/30/20 06:15 Triglycerides 156 mg/dL (0-150) H 03/29/20 15:03 Cholesterol 121 mg/dL (50-200) 03/29/20 15:03 Total LDL Cholesterol 67 mg/dL (5-100) 03/29/20 15:03 HDL Cholesterol 36 mg/dL (40-60) L 03/29/20 15:03 TSH 2.54 uIU/ml (0.358-3.74) D 03/30/20 06:15 Urine Color Yellow 03/29/20 21:07 Urine Appearance Clear 03/29/20 21:07 Urine pH 6.0 (5.0-8.0) 03/29/20 21:07 Ur Specific [place] 1.011 (1.010-1.035) 03/29/20 21:07 Urine Protein 1+ (NEGATIVE) H 03/29/20 21:07 Urine Glucose (UA) Negative (NEGATIVE) 03/29/20 21:07 Urine Ketones Negative (NEGATIVE) 03/29/20 21: Urine Blood Negative (NEGATIVE) 03/29/20 21:07 Urine Nitrite Positive (NEGATIVE) H 03/29/20 21:07 Urine Bilirubin Negative (NEGATIVE) 03/29/20 21:07 Urine Urobilinogen 1.0 mg/dL (0.2-1.0) 03/29/20 21:07 Ur Leukocyte Esterase Negative (NEGATIVE) 03/29/20 21:07 Urine WBC (Auto) 12 /uL (0-25.8) 03/29/20 21:07 Urine RBC (Auto) 7 /uL (0-23.9) 03/29/20 21:07 Urine Casts (Auto) 0 /uL (0-3.1) 03/29/20 21:07 U Epithel Cells (Auto) 4 /uL (0-25.1) 03/29/20 21:07 Urine Bacteria (Auto) 1424 /uL (0-1359) 03/29/20 21:07 COVID-19 ([facility]EL[facility]) Not detected (Not Detected) 03/29/20 14:32 Blood Type O POSITIVE 03/29/20 15:03 Antibody Screen Negative 03/29/20 15:03 Active Medications Aspirin (Asa -) 81 mg PO DAILY [facility] Last Admin: 03/30/20 10:08 Dose: 81 mg Documented by: Atorvastatin Calcium (Lipitor -) 40 mg PO HS [facility] Last Admin: 03/29/20 22:05 Dose: 40 mg Documented by: Heparin Sodium (Porcine) (Heparin -) 5,000 unit SQ TID [facility] Last Admin: 03/30/20 14:43 Dose: 5,000 unit Documented by: Ceftriaxone Sodium 1 gm/ (Dextrose) 50 mls @ 200 mls/hr IVPB DAILY [facility]; Protocol Stop: 04/04/20 14:14 Last Admin: 03/30/20 14:43 Dose: 200 mls/hr Documented by: Insulin Aspart (Novolog Vial Sliding Scale -) 1 vial SQ TIDAC [facility]; Protocol Last Admin: 03/30/20 12:13 Dose: Not Given Documented by: Echo 03/30 LV moderately dilated. LV systolic function severely reduced (EF 15-20%). Severe global hypokinesis of LV. RV normal in size and function. Pacemaker lead in RV. LA is moderately dilated. Moderate MR, moderate TR, mild AR. Carotid doppler 03/30 Real time and doppler evaluation of the carotid arteries demonstrates the following: Small amount of atherosclerotic plaque is identified on real time imaging of the common carotid and proximal internal and external carotid arteries bilaterally. Doppler velocity measurements are within normal limits within these vessels with no velocity elevations suspicious for hemodynamically significant stenoses. Forward flow is present within both vertebral arteries. Head CT 03/29 There is moderate atrophy, ventricular dilatation and periventricular chronic microvascular ischemic disease changes. No mass lesion or intracranial hemorrhage are identified. There is focal cortical atrophy in the right parietal lobe with subcortical low-attenuation density likely a chronic infarct. Otherwise, no gross CT evidence of an acute infarct is identified. There is no shift of the midline structures. The calvarium is intact. Mild deviation of the nasal septum towards the left ASSESSMENT/PLAN: 69 yo M with pMH CAD (s/p stent 2007), HLD, DM, HFrEF (37%), s/p AICD, orthostatic hypotension, prostatic hyperplasia presents to the ED with complaint of difficulty speaker. Pt admitted for evaluation for expressive aphasia. Expressive aphasia, etiology to be determined. Possibly due to acute stroke. -In ED, received ASA 324mg. Will c/w ASA 81mg qD, atorvastatin 40mg qHS -CT head, echo and carotid duplex as above -Pt cannot get MRI due to AICD -Fall and aspiration precautions -neuro checks q4H -Speech and swallow, neurology (Dr. Mcclendon) consulted. Pending recommendations. -c/w PT/OT -f/u lipid panel UTI -UA 1+ protein, nitrite positive, bacteria 1424 -c/w ceftriaxone 1g qD for 5 days. Started 03/30. Today is day 1 Elevated troponin -pt known to have baseline elevated troponin. -ECG without change compared to previous -Cardiology (Dr. Rushing) consulted. DM, chronic -ISS + BGM ACHS HFrEF -echo as above -Holding home furosemide 40mg BID, metoprolol succinate 50mg qD and carvedilol 3.125mg BID due to borderline BP Orthostatic hypotension -pt takes midodrine 5mg BID at home CAD, chronic -c/w ASA 81mg qD and atorvastatin 40mg qHS Prostatic hyperplasia -pt takes tamsulosin 0.4mg qD CKD, chronic -Continue to monitor Cr. Basline ~2.7 -continue to monitor FEN -no standing fluids in the setting of CHF -monitor lytes and replete -NPO Ppx -DVT SQH TID Dispo: Continue to monitor on stroke floor Visit type - Emergency Visit Emergency Visit: Yes ED Registration Date: 03/29/20 Care time: The patient presented to the Emergency Department on the above date and was hospitalized for further evaluation of their emergent condition. - New Patient This patient is new to me today: No - Critical Care Critical Care patient: No - Medication Review Med list reviewed for High Risk Meds patients 65 and older: Yes ATTENDING PHYSICIAN STATEMENT I saw and evaluated the patient. I reviewed the resident's note and discussed the case with the resident. I agree with the resident's findings and plan as documented. SUBJECTIVE: OBJECTIVE: ASSESSMENT AND PLAN:
[2020-03-30] MEDS ORDERED: CEFTRIAXONE 1 GM in DEXTROSE 5%-WATER - 50 ML IVPB SCH (14:15)
--- NOTE | 2020-03-30 16:03 | PN ---
Teaching Attending Note Name of Resident: Nesha James ATTENDING PHYSICIAN STATEMENT I saw and evaluated the patient. I reviewed the resident's note and discussed the case with the resident. I agree with the resident's findings and plan as documented. SUBJECTIVE: No overnight events OBJECTIVE: Vital Signs Period Temp Pulse Resp BP Sys/Alva Pulse Ox Last 24 Hr 97.7 F-97.7 F 71-75 17-22 100-121/58-79 96-100 Physical Exam as resident note ASSESSMENT AND PLAN: 69 y/o M with CAD s/p PCI, HLD, DM, HFrEF s/p AICD, who presents with difficulty speaking CVA: Patient not given tPA on admission follow Echo with bubble study MRI unable to be performed 2/2 ICD Speech/swallow eval f.u Lipid panel, TSH Carotid Doppler monitor on tele, consider outpatient holter monitor neuro Consultation PT/OT eval Defer to Neurology about DAPT HFrEF: Currently euvolemic Cont ASA, Statin Patient not on ACEI 2/2 CKD Restart BB and Lasix as BP tolerates UTI Continue Ceftriazone PPx: SCD HSQ
--- NOTE | 2020-03-30 16:49 | CONSULT ---
Consult Consult Specialty:: Nephrology Reason for Consultation:: CKD - History of Present Illness Chief Complaint: difficulty speaking History of Present Illness: Pt is a 69 year old make with pmhx of cad, cardiac stents, hld, DM, CHF who presents with difficulty speaking. The history was obtained from the chart. His symptoms began 2 days ago. 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 He follows with renal in Friday. His renal function appears to be at baseline. He denies shortness of breath. - History Source History Provided By: Family Member - Past Medical History Cardio/Vascular: Yes: HTN, Other (Pacemaker, Stents x2) Endocrine: Yes: Diabetes Mellitus - Past Surgical History Past Surgical History: Yes: None - Alcohol/Substance Use Hx Alcohol Use: No - Smoking History Smoking history: Never smoked Have you smoked in the past 12 months: No Home Medications - Allergies Allergies/Adverse Reactions: Allergies Allergy/AdvReac Type Severity Reaction Status Date / Time No Known Drug Allergies Allergy Verified 10/05/16 20:57 - Home Medications Home Medications: Ambulatory Orders Linagliptin [Tradjenta] 5 mg PO ONCE #0 tab 10/09/16 Aspirin [ASA -] 81 mg PO DAILY 10/15/17 Carvedilol [Coreg -] 3.125 mg PO BID 03/29/20 Furosemide [Lasix] 40 mg PO BID 03/29/20 Insulin (Levemir) [Levemir Vial] 49 unit SQ DAILY 03/29/20 Fluoxetine HCl [Prozac -] 20 mg PO DAILY 03/30/20 Magnesium 400 mg PO DAILY 03/30/20 Metoprolol Succinate [Toprol Xl] 50 mg PO DAILY 03/30/20 Midodrine HCl 5 mg PO BID 03/30/20 Rosuvastatin [Crestor -] 40 mg PO DAILY 03/30/20 Tamsulosin HCl [Flomax] 0.4 mg PO DAILY 03/30/20 Family Medical History Family History: Unable to Obtain Review of Systems - Review of Systems Constitutional: reports: Loss of Appetite, Weakness Eyes: reports: No Symptoms HENT: reports: No Symptoms Neck: reports: No Symptoms Cardiovascular: reports: No Symptoms Neurological: reports: Change in Speech Psychiatric: reports: No Symptoms Physical Exam Vital Signs: Vital Signs Temperature 97.7 F 03/30/20 13:30 Pulse Rate 75 03/30/20 13:30 Respiratory Rate 17 10/15/20 13:30 Blood Pressure 121/79 03/30/20 13:30 O2 Sat by Pulse Oximetry (%) 100 03/30/20 13:30 Constitutional: Yes: Calm Eyes: Yes: Conjunctiva Clear HENT: Yes: Atraumatic Neck: Yes: Supple Cardiovascular: Yes: S1, S2 Respiratory: Yes: CTA Bilaterally Gastrointestinal: Yes: Normal Bowel Sounds, Soft Renal/: Yes: WNL Musculoskeletal: Yes: WNL Edema: No Labs: CBC, BMP 03/30/20 06:15 03/30/20 06:15 Imaging - Results Chest X-ray: Report Reviewed Problem List - Problems (1) CKD (chronic kidney disease) Code(s): N18.9 - CHRONIC KIDNEY DISEASE, UNSPECIFIED (2) Slurred speech Code(s): R47.81 - SLURRED SPEECH Assessment/Plan Current Medications Generic Name Dose Route Start Last Admin Trade Name Freq PRN Reason Stop Dose Admin Aspirin 81 mg 03/30/20 10:00 03/30/20 10:08 Asa - PO 81 mg DAILY JEREMY Administration Atorvastatin Calcium 40 mg 03/29/20 19:45 03/29/20 22:05 Lipitor - PO 40 mg HS JEREMY Administration Heparin Sodium (Porcine) 5,000 unit 03/30/20 06:00 03/30/20 14:43 Heparin - SQ 5,000 unit TID JEREMY Administration Ceftriaxone Sodium 1 gm/ 50 mls @ 100 mls/hr 03/31/20 10:00 Dextrose IVPB 04/05/20 09:59 DAILY [facility] Protocol Insulin Aspart 1 vial 03/29/20 18:15 03/30/20 16:28 Novolog Vial Sliding Scale - SQ 2 units TIDAC JEREMY Administration Protocol Laboratory Tests 10/08/16 10/15/17 10/15/17 05:35 04:30 13:14 Creatinine 2.4 H 3.1 H D 2.6 H Urine Protein COVID-19 (ARIELLE) 03/29/20 03/29/20 03/29/20 14:32 15:03 21:07 Creatinine 3.1 H Urine Protein 1+ H COVID-19 (ARIELLE) Not detected 03/30/20 06:15 Creatinine 2.7 H Urine Protein COVID-19 (ARIELLE) Impression 1. CKD 2. slurred speech 3. chf 4. cad 5. hld Plan - renal function at baseline - neuro eval - avoid nsaids - monitor lytes - monitor bp
--- NOTE | 2020-03-30 19:16 | CON.NEURO ---
Consult Consult Specialty:: [place] Referred by:: Self - History of Present Illness History of Present Illness: 69 years old man with history of Orthostatic Hyoptension Came in from my office expressing himself No fall No weight loss No weight gain Patient was seen - History Source History Provided By: Significant Other Limitations to Obtaining History: No Limitations - Past Medical History Cardio/Vascular: Yes: HTN, Other (Pacemaker, Stents x2) Endocrine: Yes: Diabetes Mellitus - Past Surgical History Past Surgical History: Yes: None - Alcohol/Substance Use Hx Alcohol Use: No - Smoking History Smoking history: Never smoked Have you smoked in the past 12 months: No Home Medications - Allergies Allergies/Adverse Reactions: Allergies Allergy/AdvReac Type Severity Reaction Status Date / Time No Known Drug Allergies Allergy Verified 10/05/16 20:57 - Home Medications Home Medications: Ambulatory Orders Linagliptin [Tradjenta] 5 mg PO ONCE #0 tab 10/09/16 Aspirin [ASA -] 81 mg PO DAILY 10/15/17 Carvedilol [Coreg -] 3.125 mg PO BID 03/29/20 Furosemide [Lasix] 40 mg PO BID 03/29/20 Insulin (Levemir) [Levemir Vial] 49 unit SQ DAILY 03/29/20 Fluoxetine HCl [Prozac -] 20 mg PO DAILY 03/30/20 Fluoxetine HCl [Prozac] 20 mg PO HS 03/30/20 Magnesium 400 mg PO DAILY 03/30/20 Magnesium Oxide [Mag-Ox -] 400 mg PO DAILY 03/30/20 Metoprolol Succinate [Toprol Xl] 50 mg PO DAILY 03/30/20 Midodrine HCl 5 mg PO BID 03/30/20 Rosuvastatin [Crestor -] 40 mg PO DAILY 03/30/20 Tamsulosin HCl [Flomax] 0.4 mg PO DAILY 03/30/20 Family Medical History Family History: Unable to Obtain Review of Systems - Review of Systems Constitutional: reports: No Symptoms Eyes: reports: No Symptoms HENT: reports: No Symptoms Neurological: reports: Headache, Incoordination, Numbness Physical Exam-Neuro Vital Signs: Vital Signs Temperature 98 F 03/30/20 18:57 Pulse Rate 82 03/30/20 18:57 Respiratory Rate 16 03/30/20 18:57 Blood Pressure 110/77 03/30/20 18:57 O2 Sat by Pulse Oximetry (%) 99 10/15/20 18:57 Constitutional: Yes: Well Nourished Neck: Yes: WNL Cardiovascular: Yes: WNL Respiratory: Yes: WNL Labs: CBC, BMP 03/30/20 06:15 03/30/20 06:15 INR, PTT INR 1.04 (0.83-1.09) 03/29/20 15:03 - Neuro Exam Level Of Consciousness: Yes: Oriented to Person Eyes: Yes: PERRLA DTR's: 1+ Left Bicep, 1+ Right Bicep, 1+ Left Tricep, 1+ Right Tricep Response to light touch: Normal Response to pain prick: Normal Response to temperature: Normal Motor Strength: 3/5: Left Arm, Right Arm, Left Leg, Right Leg Gait: Deferred Assessment/Plan MRI brain no Jaspreet Aspirin cardiology consult Fall precaution
[2020-03-30] MEDS: ATORVASTATIN CA 40 MG TABLET (FP) PO SCH (23:38)
[2020-03-30] MEDS: CARVEDILOL 3.125 MG TABLET (FP) PO SCH (23:39)
[2020-03-31 04:24] VITALS: BMI 23.3
[2020-03-31] MEDS: HEPARIN NA (PORCINE) 5,000 UNITS/ML 1ML VIAL SQ SCH ×2 (06:49→13:16)
[2020-03-31] MEDS: INSULIN SLIDING SCALE (NOVOLOG) 1 VIAL SQ SCH ×2 (06:50→11:31)
[2020-03-31 07:04] LABS: HEMATOCRIT 31.9 % (35.4-49); HEMOGLOBIN 10.8 GM/dL (11.7-16.9); MCH 32.2 pg (25.7-33.7); MCHC 33.9 g/dl (32.0-35.9); MEAN CELL VOLUME 95.1 fl (80-96); MEAN PLT VOLUME 8.5 fl (7.5-11.1); PLATELET COUNT 170 K/MM3 (134-434); RBC 3.36 M/mm3 (4.00-5.60); RDW 15.5 % (11.9-15.9); WHITE BLOOD COUNT 6.5 K/mm3 (4.0-10.0)
[2020-03-31 07:42] LABS: BLOOD UREA NITROGEN 61.4 mg/dL (7-18); CALCIUM 8.8 mg/dL (8.5-10.1); POTASSIUM 4.2 mmol/L (3.5-5.1)
[2020-03-31 07:48] LABS: CREATININE 3.1 mg/dL (0.55-1.3)
[2020-03-31] MEDS ORDERED: DEXTROSE 5%-WATER - 50 ML IVPB ONE (08:29)
[2020-03-31] MEDS ORDERED: cefTRIAXone SODIUM 1 GM VIAL ONE (08:29)
[2020-03-31] MEDS: CARVEDILOL 3.125 MG TABLET (FP) PO SCH (09:13)
[2020-03-31] MEDS: ASPIRIN 81 MG CHEWABLE TABLETS PO SCH (09:13)
[2020-03-31] MEDS ORDERED: FLU VACCINE (FLULAVAL) PF 60 MCG/0.5 ML SYRINGE 2020-2021 IM ONE (10:00)
[2020-03-31] MEDS ORDERED: CEFTRIAXONE 1 GM in DEXTROSE 5%-WATER - 50 ML IVPB SCH (10:00)
--- NOTE | 2020-03-31 10:18 | PN ---
Progress Note, DIRECTOR OF OPERATIONS SUPPORT - Note Progress Note: Selected Entries 03/31/20 03/31/20 03/31/20 06:00 09:10 09:37 Breakfast 100% Diet Tolerated Well Temperature 98.7 F 97.7 F Pulse Rate 83 77 Blood Pressure 93/53 L 108/72 O2 Sat by Pulse 98 100 Oximetry (%) Laboratory Tests 03/31/20 06:20 WBC 6.5 Laboratory Tests 03/29/20 14:32 COVID-19 (ARIELLE) Not detected Neurology consult appreciated. CT head- Moderate atrophy.MV changes. Pending MRI- has defibrillator Pt assessed with transfill technician. Pt is verbal, with difficulty during propositional speech tasks, producing shorter sentences with anomia.Pt says he knows what he wants to say but it doesnt always come out. Reviewed with pt's daughter- Pt having difficulty pronouncing words-inconsistent phonemic errors c/w apraXIA/APHASIA. dIFFICULTY EXPRESSING HIMSELF DURING CONVERSATION. sHE FEELS HIS MEMORY IS GOOD and he is fully oriented. She denies any baseline confusion premorbidly or now. H/o EEG reportedly (-). Sleep studies in past (-) although sleep pattern is poor per his daughter. Speech difficulty was sudden onset and is improving but not yet at baseline. Daughter educated on Aphasia/apraxia and compensatory strategies to improve articulatory accuracy and word finding in propositional speech tasks. Pt will benefit from Kinyarwanda speaking Speech pathologist, if difficulty persists, upon d/c.
--- NOTE | 2020-03-31 10:34 | PN ---
Progress Note, Physician History of Present Illness: Patient is a 69 year old male with history of coronary artery disease (s/p stent LAD placed in 2007), hyperlipidemia, diabetes mellitus, PAD s/p NEUROPSYCHOLOGIST tibioperoneal artery, CKD IV, HFrEF (LEVF 20-25% 10/2019, s/p AICD placement), last admission J[facility] Jerry 03/04/2020, orthostatic hypotension (Shy-Drager), presents with complaint of difficulty speaking. History obtained with assistance of daughter (Shanel [phone]) at bedside. She endorses the symptoms began two days ago, where patient was noticed to have difficut time speaking. She noted that patient had increased coughing with phlem production, and spoke with primary care physician who beleived the patient may have had upper respiratory infection. However, patient reportedly wrote a note to his , stating that he had difficulty finding words. The daughter called neurologist (Dr. Mcclendon) who advised that they proceed to Emergency Room for evaluation. She denies any preceding trauma or fall in the past week. Denies any recent changes in medication. She denies any noted weakness, or facial asymmetry. He denies dyspnea. HCT shows chronic infarcts and SVID. Last saw Dr. Peng Collins CD 03/17/2020, ICD interrogation at that time showed no episodes of tachyarrhythmia or therapy. He has aphasia and difficulty speaking. - Current Medication List Current Medications: Active Medications Aspirin (Asa -) 81 mg PO DAILY [facility] Last Admin: 03/31/20 09:13 Dose: 81 mg Documented by: Atorvastatin Calcium (Lipitor -) 40 mg PO HS [facility] Last Admin: 03/30/20 23:38 Dose: 40 mg Documented by: Carvedilol (Coreg -) 3.125 mg PO BID [facility] Last Admin: 03/31/20 09:13 Dose: 3.125 mg Documented by: Heparin Sodium (Porcine) (Heparin -) 5,000 unit SQ TID [facility] Last Admin: 03/31/20 06:49 Dose: 5,000 unit Documented by: Ceftriaxone Sodium 1 gm/ (Dextrose) 50 mls @ 100 mls/hr IVPB DAILY [facility]; Protocol Stop: 04/05/20 09:59 Last Admin: 03/31/20 09:13 Dose: 100 mls/hr Documented by: Insulin Aspart (Novolog Vial Sliding Scale -) 1 vial SQ TIDAC [facility]; Protocol Last Admin: 03/31/20 06:50 Dose: Not Given Documented by: - Objective Vital Signs: Vital Signs Temperature 97.7 F 03/31/20 09:37 Pulse Rate 77 03/31/20 09:37 Respiratory Rate 18 03/31/20 09:37 Blood Pressure 108/72 03/31/20 09:37 O2 Sat by Pulse Oximetry (%) 100 03/31/20 09:37 Constitutional: Yes: No Distress, Calm, Thin Neck: Yes: Supple Cardiovascular: Yes: Regular Rate and Rhythm Respiratory: Yes: Regular, CTA Bilaterally Gastrointestinal: Yes: Normal Bowel Sounds, Soft Edema: No Labs: CBC, BMP 03/31/20 06:20 03/31/20 06:20 INR, PTT INR 1.04 (0.83-1.09) 03/29/20 15:03 Problem List - Problems (1) Subendocardial ischemia Code(s): I24.8 - OTHER FORMS OF ACUTE ISCHEMIC HEART DISEASE (2) Chronic systolic dysfunction of left ventricle Code(s): I51.9 - HEART DISEASE, UNSPECIFIED (3) ICD (implantable cardioverter-defibrillator) in place Code(s): Z95.810 - PRESENCE OF AUTOMATIC (IMPLANTABLE) CARDIAC DEFIBRILLATOR (4) CKD (chronic kidney disease) Code(s): N18.9 - CHRONIC KIDNEY DISEASE, UNSPECIFIED Qualifiers: Chronic kidney disease stage: stage 4 (severe) Qualified Code(s): N18.4 - Chronic kidney disease, stage 4 (severe) (5) Slurred speech Code(s): R47.81 - SLURRED SPEECH (6) Elevated troponin Code(s): R74.8 - ABNORMAL LEVELS OF OTHER SERUM ENZYMES (7) Hyperlipidemia Code(s): E78.5 - HYPERLIPIDEMIA, UNSPECIFIED Qualifiers: Hyperlipidemia type: pure hypercholesterolemia Qualified Code(s): E78.00 - Pure hypercholesterolemia, unspecified; E78.0 - Pure hypercholesterolemia (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 Severe LV dysfunction with visual EF 20-25% with diffuse hypokinesis worse in inferior and posterior wall. Grade 2 LV diastolic dysfunction suggests abnormal relaxation, and elevated left atrial pressure.There is a pacemaker or defibrillator lead in the right heart. Moderate left atrial enlargement There is mild to moderate mitral regurgitation. There is mild tricuspid regurgitation. 1. Dysarthria r/o acute stroke 2. CAD s/p stent 3. Ischemic cardiomyopathy with HFrEF (EF 15-20%, s/p AICD placement) and subendocardial ischemia 4. Hyperlipidemia 5. Type 2 DM 6. Orthostatic hypotension/Shy-Drager on Northera 7. CKD 8. UTI P:1. No MRI due to ICD, repeat HCT to demonstrate evolution, S&S and neuro eval, f/u TSH, lipid panel, trops plateaued 2. Telemetry monitoring to r/o PAF, interrogate ICD to assess for PAF 3. Continue ASA 81 qd, carvedilol 3.125 bid, Lipitor 40 qd, resume Lasix 40 qd as hemodynamics tolerate 4. Not on VERONICA-I/ARB/ARNI/Sant[place] inhibition due to CKD and Shy-Drager's 5. Empiric ceftriaxone per C&S
[2020-03-31 13:54] VITALS: BP 99/61; PULSE 73; TEMP 98.1
--- NOTE | 2020-03-31 13:58 | PN ---
Progress Note, Physician History of Present Illness: Pt seen and examined at bedside. He is awake and appears comfortable. He has aphasia and difficulty speaking. - Current Medication List Current Medications: Active Medications Aspirin (Asa -) 81 mg PO DAILY [facility] Last Admin: 03/31/20 09:13 Dose: 81 mg Documented by: Atorvastatin Calcium (Lipitor -) 40 mg PO HS [facility] Last Admin: 03/30/20 23:38 Dose: 40 mg Documented by: Carvedilol (Coreg -) 3.125 mg PO BID [facility] Last Admin: 03/31/20 09:13 Dose: 3.125 mg Documented by: Heparin Sodium (Porcine) (Heparin -) 5,000 unit SQ TID [facility] Last Admin: 03/31/20 13:16 Dose: 5,000 unit Documented by: Ceftriaxone Sodium 1 gm/ (Dextrose) 50 mls @ 100 mls/hr IVPB DAILY [facility]; Protocol Stop: 04/05/20 09:59 Last Admin: 03/31/20 09:13 Dose: 100 mls/hr Documented by: Insulin Aspart (Novolog Vial Sliding Scale -) 1 vial SQ TIDAC [facility]; Protocol Last Admin: 03/31/20 11:31 Dose: 4 units Documented by: - Objective Vital Signs: Vital Signs Temperature 98.1 F 03/31/20 13:52 Pulse Rate 73 03/31/20 13:52 Respiratory Rate 16 03/31/20 13:52 Blood Pressure 99/61 03/31/20 13:52 O2 Sat by Pulse Oximetry (%) 100 03/31/20 09:37 Constitutional: Yes: Calm Eyes: Yes: Conjunctiva Clear HENT: Yes: Atraumatic Cardiovascular: Yes: S1, S2 Respiratory: Yes: CTA Bilaterally Gastrointestinal: Yes: Soft Genitourinary: Yes: WNL Musculoskeletal: Yes: WNL Edema: No Neurological: Yes: Other (aphasia) Labs: CBC, BMP 03/31/20 06:20 03/31/20 06:20 INR, PTT INR 1.04 (0.83-1.09) 03/29/20 15:03 Problem List - Problems (1) CKD (chronic kidney disease) Code(s): N18.9 - CHRONIC KIDNEY DISEASE, UNSPECIFIED Qualifiers: Chronic kidney disease stage: stage 4 (severe) Qualified Code(s): N18.4 - Chronic kidney disease, stage 4 (severe) (2) Slurred speech Code(s): R47.81 - SLURRED SPEECH Assessment/Plan Current Medications Generic Name Dose Route Start Last Admin Trade Name Lani PRN Reason Stop Dose Admin Aspirin 81 mg 03/30/20 10:00 03/31/20 09:13 Asa - PO 81 mg DAILY JEREMY Administration Atorvastatin Calcium 40 mg 03/29/20 19:45 03/30/20 23:38 Lipitor - PO 40 mg HS JEREMY Administration Carvedilol 3.125 mg 03/30/20 22:00 03/31/20 09:13 Coreg - PO 3.125 mg BID JEREMY Administration Heparin Sodium (Porcine) 5,000 unit 03/30/20 06:00 03/31/20 13:16 Heparin - SQ 5,000 unit TID JEREMY Administration Ceftriaxone Sodium 1 gm/ 50 mls @ 100 mls/hr 03/31/20 10:00 03/31/20 09:13 Dextrose IVPB 04/05/20 09:59 100 mls/hr DAILY JEREMY Administration Protocol Insulin Aspart 1 vial 03/29/20 18:15 03/31/20 11:31 Novolog Vial Sliding Scale - SQ 4 units TIDAC JEREMY Administration Protocol Impression 1. CKD 2. slurred speech 3. chf 4. cad 5. hld Plan - cont to monitor renal function - he appears to be euvoemic - neuro and cardio workup in progress - monitor bp - avoid nsaids and nephrotoxins
--- NOTE | 2020-03-31 16:09 | PN ---
Teaching Attending Note Name of Resident: Don Chawla ATTENDING PHYSICIAN STATEMENT I saw and evaluated the patient. I reviewed the resident's note and discussed the case with the resident. I agree with the resident's findings and plan as documented. SUBJECTIVE: seen around [address] johnson helped with translation no pain , no fever or chills. no weakness. reports inability to see in L side ( per him chronic and has cataract ) No weakness. he feels his speech is much better OBJECTIVE: NAd , awake, alert, cooperative , slow speech but not slurred Cv: RRR lungs: CTAB Ext : No edema or erythema on upper or lower extremities neuro: No facial droop, EOMI, L hemianopsia , no facail droop Strength 5;5 in upper and lower extremities proximally and distally sensation to light touch was Nl. reflexes 1+ biceps and 2+ knee jerk b/l. ASSESSMENT AND PLAN: 69 y/o man with h/o HTN, HLP, Dm, systolic CHF, DM , and BPH who presented with acute onset aphasia . 1- suspected stroke ( aphasia ), ? not sure if L hemianopsia is old or new 2- volume depletion at presentation , now euvolemic 3- CKD 4- h/o Dm . now hyperglycemic 5- HLP 6- H/o HTN. on Midodrine at home . 7- possible UTI plan : - CT of head reviewed. CUS, echo reviewed - can't do MRI - ICd was not interrogated here ( last dosne on 03/17) , it can be interrogated by his primary data support specialist - Echo with bubble study could not be performed today, can be done as out pt - cont statin and asa - cont BB - resume lasix at 40 mg daily instead of BID. f/uw [place] radha carrion ( dr. Collins ) . can resume BID dosing of SOB or gaining weight - cont isulin at home , might decreae home dose - cont coreg and midiodrine - f/u nephro as out p t - cont oral Abx x 3 more days empirically d/w dr. Merida dispo : Dc home with VNS . f/u with pcp, renal, card, neuro , and speech if needed
--- NOTE | 2020-03-31 16:11 | DS ---
Physical Exam: SUBJECTIVE: Patient seen and examined. No acute events overnight. [place] line used. Pt stated he feels well. OBJECTIVE: Vital Signs Period Temp Pulse Resp BP Sys/Alva Pulse Ox Last 24 Hr 97.7 F-98.7 F 73-83 16-19 93-119/53-78 96-100 PHYSICAL EXAM GENERAL: AAOx3, Not in acute distress HEENT: NCAT, EOMI, dry mucus membranes. No flattening of nasolabial folds. CARDIAC: RRR, S1, S2 present. No murmurs PULM: CTA b/l, no wheezes or accessory muscle use. ABD: Soft, nondistended, nontender to palpation, normoactive bowel sounds. EXTREMITIES: Warm, well-perfused. No edema NEURO: CN II-XII grossly intact. Strength b/l UE and LE 5/5. Sensation intact. L hemianopsia (unclear if new/old) SKIN: Warm, dry. LABS Laboratory Last Values WBC 6.5 K/mm3 (4.0-10.0) 03/31/20 06:20 RBC 3.36 M/mm3 (4.00-5.60) L 03/31/20 06:20 Hgb 10.8 GM/dL (11.7-16.9) L 03/31/20 06:20 Hct 31.9 % (35.4-49) L 03/31/20 06:20 MCV 95.1 fl (80-96) 03/31/20 06:20 MCH 32.2 pg (25.7-33.7) 03/31/20 06:20 MCHC 33.9 g/dl (32.0-35.9) 03/31/20 06:20 RDW 15.5 % (11.9-15.9) 03/31/20 06:20 Plt Count 170 K/MM3 (134-434) 03/31/20 06:20 MPV 8.5 fl (7.5-11.1) 03/31/20 06:20 Absolute Neuts (auto) 4.1 K/mm3 (1.5-8.0) 03/30/20 06:15 Neutrophils % 61.6 % (42.8-82.8) 03/30/20 06:15 Lymphocytes % 21.0 % (8-40) 03/30/20 06:15 Monocytes % 10.1 % (3.8-10.2) 03/30/20 06:15 Eosinophils % 6.1 % (0-4.5) H 03/30/20 06:15 Basophils % 1.2 % (0-2.0) 03/30/20 06:15 Nucleated RBC % 0 % (0-0) 03/30/20 06:15 PT with INR 12.80 SEC (9.7-13.0) 03/29/20 15:03 INR 1.04 (0.83-1.09) 03/29/20 15:03 PTT (Actin FS) 18.9 SECONDS (25.2-36.5) L 03/29/20 15:03 Sodium 136 mmol/L (136-145) 03/31/20 06:20 Potassium 4.2 mmol/L (3.5-5.1) 03/31/20 06:20 Chloride 102 mmol/L (98-107) 03/31/20 06:20 Carbon Dioxide 26 mmol/L (21-32) 03/31/20 06:20 Anion Gap 8 MMOL/L (8-16) 03/31/20 06:20 BUN 61.4 mg/dL (7-18) H 03/31/20 06:20 Creatinine 3.1 mg/dL (0.55-1.3) H 03/31/20 06:20 Est GFR (CKD-EPI)AfAm 22.56 03/31/20 06:20 Est GFR (CKD-EPI)NonAf 19.47 03/31/20 06:20 POC Glucometer 201 UNITS (80-120) 03/31/20 11:14 Random Glucose 138 mg/dL (74-106) H 03/31/20 06:20 Hemoglobin A1c % 6.5 % (4.2-6.3) H 03/30/20 06:15 Calcium 8.8 mg/dL (8.5-10.1) 03/31/20 06:20 Phosphorus 4.0 mg/dL (2.5-4.9) 03/30/20 06:15 Magnesium 2.8 mg/dL (1.8-2.4) H 03/30/20 06:15 Total Bilirubin 0.9 mg/dL (0.2-1) 03/30/20 06:15 AST 30 U/L (15-37) 03/30/20 06:15 ALT 44 U/L (13-61) 03/30/20 06:15 Alkaline Phosphatase 151 U/L (45-117) H 03/30/20 06:15 Creatine Kinase 144 U/L (26-308) 03/29/20 15:03 Troponin I 0.23 ng/ml (0.00-0.05) H 03/30/20 06:15 Total Protein 7.1 g/dl (6.4-8.2) 03/30/20 06:15 Albumin 3.3 g/dl (3.4-5.0) L 03/30/20 06:15 Triglycerides 85 mg/dL (0-150) 03/31/20 06:20 Cholesterol 113 mg/dL (50-200) 03/31/20 06:20 Total LDL Cholesterol 66 mg/dL (5-100) 03/31/20 06:20 HDL Cholesterol 36 mg/dL (40-60) L 03/31/20 06:20 TSH 2.54 uIU/ml (0.358-3.74) D 03/30/20 06:15 Urine Color Yellow 03/29/20 21:07 Urine Appearance Clear 03/29/20 21:07 Urine pH 6.0 (5.0-8.0) 03/29/20 21:07 Ur Specific [place] 1.011 (1.010-1.035) 03/29/20 21:07 Urine Protein 1+ (NEGATIVE) H 03/29/20 21:07 Urine Glucose (UA) Negative (NEGATIVE) 03/29/20 21:07 Urine Ketones Negative (NEGATIVE) 03/29/20 21:07 Urine Blood Negative (NEGATIVE) 03/29/20 21:07 Urine Nitrite Positive (NEGATIVE) H 03/29/20 21:07 Urine Bilirubin Negative (NEGATIVE) 03/29/20 21:07 Urine Urobilinogen 1.0 mg/dL (0.2-1.0) 03/29/20 21:07 Ur Leukocyte Esterase Negative (NEGATIVE) 03/29/20 21:07 Urine WBC (Auto) 12 /uL (0-25.8) 03/29/20 21:07 Urine RBC (Auto) 7 /uL (0-23.9) 03/29/20 21:07 Urine Casts (Auto) 0 /uL (0-3.1) 03/29/20 21:07 U Epithel Cells (Auto) 4 /uL (0-25.1) 03/29/20 21:07 Urine Bacteria (Auto) 1424 /uL (0-1359) 03/29/20 21:07 COVID-19 (ARIELLE) Not detected (Not Detected) 03/29/20 14:32 Blood Type O POSITIVE 03/29/20 15:03 Antibody Screen Negative 03/29/20 15:03 HOSPITAL COURSE: 69 yo M with pMH CAD (s/p stent 2007), HLD, DM, HFrEF (37%), s/p AICD, orthostatic hypotension, prostatic hyperplasia presents to the ED with complaint of difficulty speaker. Pt admitted for evaluation for expressive aphasia. CT head done. There is moderate atrophy, ventricular dilatation and periventricular chronic microvascular ischemic disease changes. Otherwise, no gross CT evidence of an acute infarct is identified. Echo and carotid doppler done. Results included LV being moderately dilated. LV systolic function severely reduced (EF 15-20%). Severe global hypokinesis of LV. RV normal in size and function. Pacemaker lead in RV. LA is moderately dilated. Moderate MR, moderate TR, mild AR. There were small amount of atherosclerotic plaque identified no velocity elevations suspicious for hemodynamically significant stenoses. Pt was given 324 mg of ASA in the ED. Speech and swallow, neurology and cardiology evaluated pt. Pt was unable to receive MRI due to AICD. AICD was interrogated during this visit. Pt started on ceftriaxone due to evidence of UTI on UA. Pt had spontaneously improved speech, as per his daughter at bedside. Pt had no focal deficits. Pt is to follow up for echo with bubble study and neurology as outp atient. Pt is hemodynamically stable and is discharged back to his residence. 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 You were admitted to the hospital for an evaluation of the reason why you were having difficulties speaking. You had imaging of your head, arteries in your neck, and your heart. You were found to have a reduced function of your ability to pump your heart. You were also found to have some small plaques in the arteries of your neck. There was no evidence of significant blockage of these vessels. You were also found to have some chronic changes in your brain that suggests decrease amount of blood to small regions. Due to your defibrillator not being compatible with the MRI, you did not get an MRI of your brain. During your hospital stay, you were found to have kidney injury. You were treated with medication and IV fluids with improvement of your symptoms. While here, you were seen by a neurologist, tire installer, and a speech therapist. You are stable and may return home. Medications changes: Please take Keflex (antibiotic) 500mg twice a day by mouth for the next 3 days. Your next dose is 04/01/2020. Continue to take all other home medications as prescribed. -Flomax 0.4mg by mouth daily for easier urination -Rosuvastatin 40mg by mouth daily for your cholesterol. -Midodrine 5mg by mouth twice a day for your blood pressure -Carvedilol 3.125mg twice a day and furosemide 40mg daily by mouth. -Magnesium oxide 400mg by mouth daily -Linagliptin (Tradjenta) 5mg by mouth daily and Insulin levemir 35 units daily for your diabetes -Fluoxetine 20mg by mouth daily. -Aspirin 81mg by mouth daily - resume lasix at once a daily dosing, if you feel short of breath or start gaining weight , you can increase to twice a day ( consult with your rn icu ) Please avoid use of ibuprofen, motrin, and similar medications or anything toxic to your kidneys. Follow up: Visit with your Primary Care Provider, Dr. Vasquez, in 2 weeks. You may discuss your hospitalization during this visit. Please make an appointment with your neurologist, Dr. Mcclendon, in 1 week. You may discuss the findings of your brain during this visit. Please make an appointment with your rn icu, Dr. Collins, in 1 week. You may discuss the findings of your heart during this visit. You will also need an echocardiogram with bubble study. You need your ICD interrogated again with your rn icu Please make an appointment with your tire installer, Dr. Merida, in 1 week. You may go over the findings of your kidneys during this visit. Please make an appointment with a speech pathologist of your choice. It will be beneficial for you to see a speech pathologist who speaks Chinese. If you do not have one, you may make an appointment to see the hospital's speech pathologist Colette De La Vega. Additional Instructions: You are being discharged to your home. Please return to the Emergency Department if you experience worsening pain, fevers, chills, shortness of breath, or chest pain, or if you experience any worsening, new or concerning symptoms. Referrals: Colette De La Vega MS, CCC [Speech Therapist] - 1 Week Ashely Vasquez [Primary Care Provider] - 2 Weeks Peng Collins [Non Staff, Medical] - 1 Week Micheal Merida MD [Staff Physician] - Sd Mcclendon MD [Staff Physician] - 1 Week Disposition: VNS/HOME HEALTH CARE - Home Medications Comprehensive Discharge Medication List: Ambulatory Orders Linagliptin [Tradjenta] 5 mg PO ONCE #0 tab 10/09/16 Aspirin [ASA -] 81 mg PO DAILY 10/15/17 Carvedilol [Coreg -] 3.125 mg PO BID 03/29/20 Insulin (Levemir) [Levemir Vial] 49 unit SQ DAILY 03/29/20 Fluoxetine HCl [Prozac -] 20 mg PO DAILY 03/30/20 Magnesium 400 mg PO DAILY 03/30/20 Magnesium Oxide [Mag-Ox -] 400 mg PO DAILY 03/30/20 Midodrine HCl 5 mg PO BID 03/30/20 Rosuvastatin [Crestor -] 40 mg PO DAILY 03/30/20 Tamsulosin HCl [Flomax] 0.4 mg PO DAILY 03/30/20 Cephalexin [Keflex] 500 mg PO BID #6 capsule 03/31/20 Furosemide [Lasix -] 40 mg PO DAILY #30 tablet 03/31/20 This patient is new to me today: No Emergency Visit: Yes ED Registration Date: 03/29/20 Care time: The patient presented to the Emergency Department on the above date and was hospitalized for further evaluation of their emergent condition. Critical Care patient: No - Discharge Referral Referred to [facility] No ATTENDING PHYSICIAN STATEMENT I saw and evaluated the patient. I reviewed the resident's note and discussed the case with the resident. I agree with the resident's findings and plan as documented. SUBJECTIVE: OBJECTIVE: ASSESSMENT AND PLAN:
== END 2020-03-31 18:43 | disposition home health service (06) | DRG 65 ==
LOC: JER 12:42 → JERBED 17:16 → J4S 03-30 21:29
PROVIDERS: ATTEND Internal Medicine
DX: I63.9 Cerebral infarction, unspecified (principal); I50.20 Unspecified systolic (congestive) heart failure; I13.0 Hypertensive heart and chronic kidney disease with heart failure and stage 1 through stage 4 chronic kidney disease, or unspecified chronic kidney disease; G90.3 Multi-system degeneration of the autonomic nervous system; N39.0 Urinary tract infection, site not specified; B40.0 Acute pulmonary blastomycosis; N18.4 Chronic kidney disease, stage 4 (severe); E11.65 Type 2 diabetes mellitus with hyperglycemia; E78.5 Hyperlipidemia, unspecified; R29.703 NIHSS score 3; I25.10 Atherosclerotic heart disease of native coronary artery without angina pectoris; I25.5 Ischemic cardiomyopathy; I69.920 Aphasia following unspecified cerebrovascular disease; H53.47 Heteronymous bilateral field defects; Z95.5 Presence of coronary angioplasty implant and graft; E86.9 Volume depletion, unspecified; I95.1 Orthostatic hypotension
CPT/HCPCS: 36415; 70450-TC; 80048; 80053; 80061; 81003; 82550; 82962; 83036; 83721; 83735; 84100; 84443; 84484; 85025; 85027; 85610; 85730; 86850; 86900; 86901; 93005; 93010; 93306-TC; 93880-TC; 97116-GP; 97161-GP; 99285-25; C9803; J1644; Q2036; U0003

== ENCOUNTER 2022-01-04 12:49 | Observation (INO) | payer OTHER ==
[2022-01-04 13:08] VITALS: BMI 23.0
[2022-01-04] MEDS ORDERED: ACETAMINOPHEN 325 MG TABLET (FP) PO ONE (13:42)
[2022-01-04] MEDS ORDERED: LIDOCAINE 5% TOPICAL PATCH TP ONE (13:44)
[2022-01-04] MEDS ORDERED: LIDOCAINE 5% TOPICAL PATCH ONE (14:01)
[2022-01-04] MEDS ORDERED: ACETAMINOPHEN 325 MG TABLET (FP) ONE (14:01)
[2022-01-04 14:39] LABS: BASO % 0.2 % (0-2.0); EOS % 0.5 % (0-4.5); HEMOGLOBIN 11.4 GM/dL (11.7-16.9); LYMPH % 8.1 % (8-40); MCH 33.2 pg (25.7-33.7); MCHC 33.5 g/dl (32.0-35.9); MEAN CELL VOLUME 98.9 fl (80-96); MEAN PLT VOLUME 7.9 fl (7.5-11.1); MONO % 7.6 % (3.8-10.2); NEUT % 83.6 % (42.8-82.8); PLATELET COUNT 165 10^3/uL (134-434); RBC 3.44 M/mm3 (4.00-5.60); RDW 15.9 % (11.9-15.9); WHITE BLOOD COUNT 14.8 K/mm3 (4.0-10.0)
[2022-01-04 15:12] LABS: CHLORIDE 99 mmol/L (98-107); SODIUM 136 mmol/L (136-145)
[2022-01-04 15:14] LABS: CALCIUM 9.2 mg/dL (8.5-10.1)
[2022-01-04 15:15] LABS: ALBUMIN 3.7 g/dl (3.4-5.0); ANION GAP 12 MMOL/L (8-16); BLOOD UREA NITROGEN 80.5 mg/dL (7-18); CO2 24 mmol/L (21-32); GLUCOSE,RANDOM 232 mg/dL (74-106)
[2022-01-04 15:18] LABS: SGOT/AST 47 U/L (15-37); SGPT/ALT 37 U/L (13-61)
[2022-01-04 15:20] LABS: BILIRUBIN,TOTAL 1.3 mg/dL (0.2-1); TOT PROT 8.4 g/dl (6.4-8.2)
[2022-01-04 15:21] LABS: ALK PHOS 302 U/L (45-117)
[2022-01-04 15:23] LABS: N-TERMINAL BNP 10938.2 pg/ml (5-125)
[2022-01-04 16:16] LABS: EPI CELLS 9 /uL (0-25.1); HYALINE CASTS 2 /uL (0-3.1); PH,URINE 5.5 (5.0-8.0); URINE APPEARANCE CLEAR; URINE BACTERIA 2 /uL (0-1359); URINE BILIRUBIN NEGATIVE (NEGATIVE); URINE COLOR YELLOW; URINE GLUCOSE (UA) NEGATIVE (NEGATIVE); URINE KETONE NEGATIVE (NEGATIVE); URINE LEUK ESTERASE 1+ (NEGATIVE); URINE NITRITE NEGATIVE (NEGATIVE); URINE PROTEIN 3+ (NEGATIVE); URINE RBC 37 /uL (0-23.9); URINE WBC 45 /uL (0-25.8)
[2022-01-04] MEDS ORDERED: ACETAMINOPHEN 325 MG TABLET (FP) PO PRN (18:21)
[2022-01-04] MEDS ORDERED: CEFTRIAXONE 1 GM/50 ML BAG ONE (18:30)
[2022-01-04 18:40] LABS: ALBUMIN 3.3 g/dl (3.4-5.0); BLOOD UREA NITROGEN 89.6 mg/dL (7-18); CALCIUM 9.1 mg/dL (8.5-10.1)
[2022-01-04 18:43] LABS: CREATININE 3.1 mg/dL (0.55-1.3)
[2022-01-04 18:45] LABS: BILIRUBIN,TOTAL 1.1 mg/dL (0.2-1); TOT PROT 7.5 g/dl (6.4-8.2)
[2022-01-04] MEDS: CEFTRIAXONE 1 GM in DEXTROSE 5%-WATER - 50 ML IVPB SCH (19:20)
[2022-01-04] MEDS ORDERED: HEPARIN NA (PORCINE) 5,000 UNITS/ML 1ML VIAL IVPUSH PRN ×2 (19:31)
[2022-01-04] MEDS ORDERED: HEPARIN - 25,000 UNIT in SODIUM CHLORIDE 495 ML IV SCH (19:45)
[2022-01-04] MEDS ORDERED: HEPARIN NA (PORCINE) 5,000 UNITS/ML 1ML VIAL SQ ONE (20:33)
[2022-01-04] MEDS ORDERED: HEPARIN NA (PORCINE) 5,000 UNITS/ML 1ML VIAL ONE (20:48)
[2022-01-04] MEDS ORDERED: HEPARIN INFUSION - 25,000 UNITS/500 ML INFUS.BAG IVPB ONE (20:53)
[2022-01-04] MEDS: INSULIN SLIDING SCALE (NOVOLOG) 1 VIAL SQ SCH (21:31)
[2022-01-04] MEDS ORDERED: HEPARIN NA (PORCINE) 5,000 UNITS/ML 1ML VIAL SQ SCH (22:00)
[2022-01-05] MEDS: HEPARIN - 25,000 UNIT in SODIUM CHLORIDE 495 ML IV SCH ×2 (00:16→19:30)
[2022-01-05] MEDS ORDERED: LIDOCAINE PATCH REMOVAL MC ONE (02:00)
[2022-01-05 06:38] LABS: INR 1.36 (0.83-1.09); PROTHROMBIN TIME (PATIENT) 15.7 SEC (9.7-13.0)
[2022-01-05 06:41] LABS: ACTIVATED PTT 76.8 SECONDS (25.2-36.5)
[2022-01-05 07:03] LABS: CHOLESTEROL 106 mg/dL (50-200); TRIGLYCERIDES 87 mg/dL (0-150)
[2022-01-05 07:04] LABS: LDL CHOLESTEROL (ONLY SJRH) 67 mg/dL (5-100)
[2022-01-05 07:06] LABS: HDL CHOLESTEROL 37 mg/dL (40-60)
[2022-01-05] MEDS: INSULIN SLIDING SCALE (NOVOLOG) 1 VIAL SQ SCH ×4 (07:19→21:55)
[2022-01-05 08:08] LABS: CALCIUM 9.3 mg/dL (8.5-10.1)
[2022-01-05 08:09] LABS: ALBUMIN 3.5 g/dl (3.4-5.0); BLOOD UREA NITROGEN 88.6 mg/dL (7-18); MAGNESIUM 2.3 mg/dL (1.8-2.4)
[2022-01-05 08:12] LABS: CREATININE 2.9 mg/dL (0.55-1.3); PHOSPHOROUS 2.7 mg/dL (2.5-4.9)
[2022-01-05 08:13] LABS: TOT PROT 7.9 g/dl (6.4-8.2)
[2022-01-05] MEDS: TAMSULOSIN HCL 0.4 MG CAP PO SCH (09:00)
[2022-01-05] MEDS ORDERED: cefTRIAXone SODIUM 1 GM VIAL ONE (09:04)
[2022-01-05] MEDS ORDERED: DEXTROSE 5%-WATER - 50 ML IVPB ONE (09:04)
[2022-01-05] MEDS: CEFTRIAXONE 1 GM in DEXTROSE 5%-WATER - 50 ML IVPB SCH (10:02)
[2022-01-05] MEDS: ROSUVASTATIN CA 10 MG TABLET PO SCH (10:02)
[2022-01-05] MEDS: SERTRALINE HCL 50 MG TABLET (FP) PO SCH (10:02)
[2022-01-05] MEDS: ASPIRIN 81 MG CHEWABLE TABLETS PO SCH (10:03)
[2022-01-05] MEDS: FUROSEMIDE 40 MG TABLET (FP) PO SCH (10:03)
[2022-01-05 11:31] LABS: INR 1.35 (0.83-1.09); PROTHROMBIN TIME (PATIENT) 15.6 SEC (9.7-13.0)
[2022-01-05] MEDS: LINZESS PO SCH (18:43)
[2022-01-06] MEDS: HEPARIN - 25,000 UNIT in SODIUM CHLORIDE 495 ML IV SCH ×2 (03:15→20:40)
[2022-01-06] MEDS: INSULIN SLIDING SCALE (NOVOLOG) 1 VIAL SQ SCH ×4 (06:39→21:18)
[2022-01-06 07:46] LABS: HEMATOCRIT 32.4 % (35.4-49); HEMOGLOBIN 11.1 GM/dL (11.7-16.9); MCH 33.4 pg (25.7-33.7); MCHC 34.2 g/dl (32.0-35.9); MEAN CELL VOLUME 97.6 fl (80-96); MEAN PLT VOLUME 8.3 fl (7.5-11.1); PLATELET COUNT 138 10^3/uL (134-434); RBC 3.32 M/mm3 (4.00-5.60); WHITE BLOOD COUNT 6.9 K/mm3 (4.0-10.0)
[2022-01-06] MEDS: LINZESS PO SCH (10:16)
[2022-01-06] MEDS ORDERED: DEXTROSE 5%-WATER - 50 ML IVPB ONE (10:16)
[2022-01-06] MEDS ORDERED: cefTRIAXone SODIUM 1 GM VIAL ONE (10:16)
[2022-01-06] MEDS: ROSUVASTATIN CA 10 MG TABLET PO SCH (10:18)
[2022-01-06] MEDS: TAMSULOSIN HCL 0.4 MG CAP PO SCH (10:18)
[2022-01-06] MEDS: CEFTRIAXONE 1 GM in DEXTROSE 5%-WATER - 50 ML IVPB SCH (10:18)
[2022-01-06] MEDS: FUROSEMIDE 40 MG TABLET (FP) PO SCH (10:18)
[2022-01-06] MEDS: ASPIRIN 81 MG CHEWABLE TABLETS PO SCH (10:18)
[2022-01-06] MEDS: SERTRALINE HCL 50 MG TABLET (FP) PO SCH (10:20)
[2022-01-06] MEDS: APIXABAN 5 MG TABLET PO SCH (21:19)
[2022-01-06] MEDS: MELATONIN 5 MG TABLETS PO PRN (22:10)
[2022-01-07] MEDS: INSULIN SLIDING SCALE (NOVOLOG) 1 VIAL SQ SCH ×4 (06:41→22:09)
[2022-01-07 08:18] LABS: HEMATOCRIT 34.6 % (35.4-49); HEMOGLOBIN 11.5 GM/dL (11.7-16.9); MCH 33.3 pg (25.7-33.7); MCHC 33.3 g/dl (32.0-35.9); MEAN CELL VOLUME 100.2 fl (80-96); MEAN PLT VOLUME 8.9 fl (7.5-11.1); PLATELET COUNT 158 10^3/uL (134-434); RBC 3.45 M/mm3 (4.00-5.60); RDW 15.1 % (11.9-15.9); WHITE BLOOD COUNT 5.8 K/mm3 (4.0-10.0)
[2022-01-07] MEDS: TAMSULOSIN HCL 0.4 MG CAP PO SCH (09:05)
[2022-01-07] MEDS ORDERED: DEXTROSE 5%-WATER - 50 ML IVPB ONE (09:26)
[2022-01-07] MEDS ORDERED: cefTRIAXone SODIUM 1 GM VIAL ONE (09:26)
[2022-01-07 09:47] LABS: CALCIUM 9.6 mg/dL (8.5-10.1)
[2022-01-07 09:48] LABS: ALBUMIN 3.4 g/dl (3.4-5.0); BLOOD UREA NITROGEN 79.8 mg/dL (7-18)
[2022-01-07 09:52] LABS: CREATININE 2.6 mg/dL (0.55-1.3)
[2022-01-07 09:53] LABS: TOT PROT 7.9 g/dl (6.4-8.2)
[2022-01-07] MEDS: FUROSEMIDE 40 MG TABLET (FP) PO SCH (10:35)
[2022-01-07] MEDS: ROSUVASTATIN CA 10 MG TABLET PO SCH (10:35)
[2022-01-07] MEDS: CEFTRIAXONE 1 GM in DEXTROSE 5%-WATER - 50 ML IVPB SCH (10:35)
[2022-01-07] MEDS: APIXABAN 5 MG TABLET PO SCH ×2 (10:36→22:09)
[2022-01-07] MEDS: LINZESS PO SCH (10:36)
[2022-01-07] MEDS: ASPIRIN 81 MG CHEWABLE TABLETS PO SCH (10:36)
[2022-01-07] MEDS: LISINOPRIL 5 MG TABLET PO SCH (11:26)
[2022-01-07] MEDS: MIRTAZAPINE 15 MG TABLET (FP) PO SCH (22:10)
[2022-01-07] MEDS: MELATONIN 5 MG TABLETS PO PRN (22:10)
[2022-01-08] MEDS: INSULIN SLIDING SCALE (NOVOLOG) 1 VIAL SQ SCH ×4 (06:13→21:03)
[2022-01-08 07:23] LABS: HEMATOCRIT 35.3 % (35.4-49); HEMOGLOBIN 11.8 GM/dL (11.7-16.9); MCH 33.3 pg (25.7-33.7); MCHC 33.5 g/dl (32.0-35.9); MEAN CELL VOLUME 99.3 fl (80-96); MEAN PLT VOLUME 8.4 fl (7.5-11.1); PLATELET COUNT 180 10^3/uL (134-434); RBC 3.56 M/mm3 (4.00-5.60); RDW 14.8 % (11.9-15.9); WHITE BLOOD COUNT 5.8 K/mm3 (4.0-10.0)
[2022-01-08] MEDS: TAMSULOSIN HCL 0.4 MG CAP PO SCH (08:39)
[2022-01-08] MEDS ORDERED: cefTRIAXone SODIUM 1 GM VIAL ONE (09:29)
[2022-01-08] MEDS ORDERED: DEXTROSE 5%-WATER - 50 ML IVPB ONE (09:29)
[2022-01-08] MEDS: ASPIRIN 81 MG CHEWABLE TABLETS PO SCH (09:51)
[2022-01-08] MEDS: FUROSEMIDE 40 MG TABLET (FP) PO SCH (09:51)
[2022-01-08] MEDS: APIXABAN 5 MG TABLET PO SCH ×2 (09:51→21:03)
[2022-01-08] MEDS: ROSUVASTATIN CA 10 MG TABLET PO SCH (09:51)
[2022-01-08] MEDS: LINZESS PO SCH (09:53)
[2022-01-08] MEDS: CEFTRIAXONE 1 GM in DEXTROSE 5%-WATER - 50 ML IVPB SCH (09:53)
[2022-01-08] MEDS: LISINOPRIL 5 MG TABLET PO SCH (12:57)
[2022-01-08] MEDS: MIRTAZAPINE 15 MG TABLET (FP) PO SCH (21:03)
[2022-01-08] MEDS: MELATONIN 5 MG TABLETS PO PRN (21:03)
[2022-01-09 06:05] VITALS: RESP 18
[2022-01-09] MEDS: INSULIN SLIDING SCALE (NOVOLOG) 1 VIAL SQ SCH (06:10)
[2022-01-09 07:33] LABS: HEMATOCRIT 36.8 % (35.4-49); HEMOGLOBIN 12.3 GM/dL (11.7-16.9); MCH 33.2 pg (25.7-33.7); MCHC 33.4 g/dl (32.0-35.9); MEAN CELL VOLUME 99.2 fl (80-96); MEAN PLT VOLUME 7.9 fl (7.5-11.1); PLATELET COUNT 199 10^3/uL (134-434); RBC 3.71 M/mm3 (4.00-5.60); RDW 15.1 % (11.9-15.9); WHITE BLOOD COUNT 8.1 K/mm3 (4.0-10.0)
[2022-01-09] MEDS: TAMSULOSIN HCL 0.4 MG CAP PO SCH (08:35)
[2022-01-09 09:50] VITALS: BP 96/50; PULSE 58; TEMP 97.9
[2022-01-09] MEDS ORDERED: cefTRIAXone SODIUM 1 GM VIAL ONE (10:03)
[2022-01-09] MEDS ORDERED: DEXTROSE 5%-WATER - 50 ML IVPB ONE (10:03)
[2022-01-09] MEDS: CEFTRIAXONE 1 GM in DEXTROSE 5%-WATER - 50 ML IVPB SCH (10:11)
[2022-01-09] MEDS: LINZESS PO SCH (10:12)
[2022-01-09] MEDS: APIXABAN 5 MG TABLET PO SCH (10:13)
[2022-01-09] MEDS: ROSUVASTATIN CA 10 MG TABLET PO SCH (10:13)
[2022-01-09] MEDS: ASPIRIN 81 MG CHEWABLE TABLETS PO SCH (10:13)
[2022-01-09] MEDS: LISINOPRIL 5 MG TABLET PO SCH (12:40)
[2022-01-09] MEDS: FUROSEMIDE 40 MG TABLET (FP) PO SCH (12:40)
== END 2022-01-09 12:15 | disposition home health service (06) ==
LOC: JER 12:49 → JERBED 16:45 → J4W 23:18
PROVIDERS: ADMIT Internal Medicine; ATTEND Family Medicine
PROC: 3E03329 Introduction of Other Anti-infective into Peripheral Vein, Percutaneous Approach (ICD-10-PCS; principal; 2022-01-04)
PROC: 3E033GC Introduction of Other Therapeutic Substance into Peripheral Vein, Percutaneous Approach (ICD-10-PCS; 2022-01-04)
PROC: 3E023GC Introduction of Other Therapeutic Substance into Muscle, Percutaneous Approach (ICD-10-PCS; 2022-01-04)
DX: I25.10 Atherosclerotic heart disease of native coronary artery without angina pectoris (principal); I11.0 Hypertensive heart disease with heart failure; R53.1 Weakness; M25.511 Pain in right shoulder; Z29.8 Encounter for other specified prophylactic measures; I82.409 Acute embolism and thrombosis of unspecified deep veins of unspecified lower extremity; Z86.73 Personal history of transient ischemic attack (TIA), and cerebral infarction without residual deficits; I95.1 Orthostatic hypotension; Z86.718 Personal history of other venous thrombosis and embolism; E78.5 Hyperlipidemia, unspecified; I25.2 Old myocardial infarction; Z95.0 Presence of cardiac pacemaker; Z95.5 Presence of coronary angioplasty implant and graft; E11.22 Type 2 diabetes mellitus with diabetic chronic kidney disease; I12.9 Hypertensive chronic kidney disease with stage 1 through stage 4 chronic kidney disease, or unspecified chronic kidney disease; N18.9 Chronic kidney disease, unspecified
CPT/HCPCS: 36415; 70450-TC; 71046-TC-FY; 73030-TC-RT-FY; 80053; 80061; 81003; 82570; 82962; 83036; 83735; 83880; 84100; 84156; 84443; 84484; 85025; 85027; 85610; 85730; 87086; 93005; 93010; 93306-TC; 93971-TC; 96365; 96367; 96372; 96375; 97116-GP; 97161-GP; 99285-25; C9803-CS; G0378; J1644; U0003; U0005

== ENCOUNTER 2022-01-27 03:30 | Emergency (ER) | payer OTHER ==
[2022-01-27 04:32] VITALS: RESP 16; TEMP 97.4; BMI 22.4
[2022-01-27] MEDS ORDERED: ACETAMINOPHEN 1000 MG/100 ML BAG IVPB ONE (05:01)
[2022-01-27] MEDS ORDERED: ACETAMINOPHEN INJECTION 100 ML IVPB ONE (05:04)
[2022-01-27 05:48] LABS: BASO % 0.5 % (0-2.0); EOS % 1.8 % (0-4.5); HEMATOCRIT 32.2 % (35.4-49); HEMOGLOBIN 11.1 GM/dL (11.7-16.9); MCH 33.3 pg (25.7-33.7); MCHC 34.3 g/dl (32.0-35.9); MEAN CELL VOLUME 97.2 fl (80-96); MEAN PLT VOLUME 8.4 fl (7.5-11.1); MONO % 6.7 % (3.8-10.2); PLATELET COUNT 180 10^3/uL (134-434); RBC 3.32 M/mm3 (4.00-5.60); RDW 14.8 % (11.9-15.9); WHITE BLOOD COUNT 10.8 K/mm3 (4.0-10.0)
[2022-01-27 05:55] LABS: VENOUS BASE EXCESS -6.9 mmol/L (-2-2); VENOUS O2 SATURATION 73.3 % (70-80); VENOUS PCO2 44.8 mmHg (38-52); VENOUS PH 7.264 (7.310-7.410)
[2022-01-27 05:58] LABS: INR 1.42 (0.83-1.09); PROTHROMBIN TIME (PATIENT) 16.4 SEC (9.7-13.0)
[2022-01-27 06:01] LABS: ACTIVATED PTT 37.2 SECONDS (25.2-36.5)
[2022-01-27 06:07] LABS: CHLORIDE 91 mmol/L (98-107); SODIUM 130 mmol/L (136-145)
[2022-01-27 06:08] LABS: CALCIUM 9.4 mg/dL (8.5-10.1)
[2022-01-27 06:09] LABS: ALBUMIN 3.7 g/dl (3.4-5.0); ANION GAP 15 MMOL/L (8-16); BLOOD UREA NITROGEN 98.5 mg/dL (7-18); CO2 23 mmol/L (21-32); GLUCOSE,RANDOM 272 mg/dL (74-106); MAGNESIUM 2.6 mg/dL (1.8-2.4)
[2022-01-27 06:12] LABS: CREATININE 3.3 mg/dL (0.55-1.3); SGOT/AST 38 U/L (15-37); SGPT/ALT 38 U/L (13-61)
[2022-01-27 06:14] LABS: BILIRUBIN,TOTAL 0.6 mg/dL (0.2-1); TOT PROT 8.2 g/dl (6.4-8.2)
[2022-01-27 06:15] LABS: ALK PHOS 440 U/L (45-117)
[2022-01-27] MEDS ORDERED: SODIUM CHLORIDE 0.9% 500 ML INFUS.BAG IV ONE (06:34)
[2022-01-27 08:18] LABS: N-TERMINAL BNP 10014.8 pg/ml (5-125)
[2022-01-27 09:07] LABS: CALCIUM 9.1 mg/dL (8.5-10.1)
[2022-01-27 09:08] LABS: BLOOD UREA NITROGEN 98.8 mg/dL (7-18)
[2022-01-27 09:11] LABS: CREATININE 3.2 mg/dL (0.55-1.3)
[2022-01-27 09:18] LABS: ARTERIAL BLOOD GAS BASE EXCESS -4.8 mmol/L (-2-2); ARTERIAL BLOOD GAS PO2 140.7 mmHg (80-100); ARTERIAL BLOOD GAS pH 7.488 (7.350-7.450)
[2022-01-27 12:11] VITALS: BP 109/70; PULSE 55
== END 2022-01-27 12:13 | disposition home or self-care (01) ==
LOC: JER 03:30
PROC: 3E0333Z Introduction of Anti-inflammatory into Peripheral Vein, Percutaneous Approach (ICD-10-PCS; principal; 2022-01-27)
DX: R73.9 Hyperglycemia, unspecified (principal); R74.8 Abnormal levels of other serum enzymes
CPT/HCPCS: 36415; 36600; 71045-TC-FY; 80048; 80053; 82010; 82803; 82962; 83605; 83735; 83880; 84484; 85025; 85610; 85730; 93005; 93010; 93970-TC; 96374; 99285-25; C9803-CS; U0003; U0005

== ENCOUNTER 2023-01-08 19:30 | Inpatient (IN) | payer OTHER ==
[2023-01-08 21:01] LABS: BASO % 0.9 % (0-2.0); EOS % 3.3 % (0-4.5); HEMATOCRIT 42.8 % (35.4-49); HEMOGLOBIN 14.5 GM/dL (11.7-16.9); LYMPH % 17.4 % (8-40); MCH 30.9 pg (25.7-33.7); MCHC 33.9 g/dl (32.0-35.9); MEAN CELL VOLUME 91.1 fl (80-96); MEAN PLT VOLUME 7.5 fl (7.5-11.1); MONO % 8.1 % (3.8-10.2); NEUT % 70.3 % (42.8-82.8); PLATELET COUNT 194 10^3/uL (134-434); RBC 4.69 M/mm3 (4.00-5.60); RDW 16.3 % (11.9-15.9); WHITE BLOOD COUNT 10.1 K/mm3 (4.0-10.0)
[2023-01-08 21:23] LABS: INR 1.44 (0.83-1.09); PROTHROMBIN TIME (PATIENT) 16.6 SEC (9.7-13.0)
[2023-01-08 21:25] LABS: ACTIVATED PTT 39.8 SECONDS (25.2-36.5)
[2023-01-08 21:35] LABS: ALBUMIN 3.4 g/dl (3.4-5.0)
[2023-01-08 21:39] LABS: CREATININE 3.4 mg/dL (0.55-1.3)
[2023-01-08 21:40] LABS: BILIRUBIN,TOTAL 0.7 mg/dL (0.2-1); TOT PROT 8.6 g/dl (6.4-8.2)
[2023-01-08] MEDS ORDERED: SODIUM CHLORIDE 0.9% 500 ML INFUS.BAG IV ONE (22:01)
[2023-01-08] MEDS ORDERED: ASPIRIN 81 MG CHEWABLE TABLETS PO ONE (22:45)
[2023-01-08] MEDS ORDERED: ASPIRIN 81 MG CHEWABLE TABLETS ONE (22:47)
[2023-01-08 22:59] LABS: BLOOD UREA NITROGEN 69.1 mg/dL (7-18)
[2023-01-08] MEDS ORDERED: DOCUSATE SODIUM 100 MG CAPSULE (FP) PO PRN (23:58)
[2023-01-08] MEDS ORDERED: ACETAMINOPHEN 325 MG TABLET (FP) PO PRN (23:58)
[2023-01-09 00:23] LABS: EPI CELLS >36 /uL (0-25.1); HYALINE CASTS 0 /uL (0-3.1); URINE APPEARANCE CLEAR; URINE BACTERIA 57 /uL (0-1359); URINE BILIRUBIN NEGATIVE (NEGATIVE); URINE COLOR YELLOW; URINE GLUCOSE (UA) 2+ (NEGATIVE); URINE KETONE NEGATIVE (NEGATIVE); URINE LEUK ESTERASE NEGATIVE (NEGATIVE); URINE NITRITE NEGATIVE (NEGATIVE); URINE PROTEIN 3+ (NEGATIVE); URINE RBC 43 /uL (0-23.9); URINE WBC 37 /uL (0-25.8)
[2023-01-09 02:47] VITALS: BMI 21.2
[2023-01-09] MEDS: INSULIN SLIDING SCALE (NOVOLOG) 1 VIAL SQ SCH ×4 (06:31→22:38)
[2023-01-09] MEDS ORDERED: INSULIN (NOVOLOG) ASPART 100 UNITS/ML 10ML VIAL ONE (10:52)
[2023-01-09] MEDS: FINASTERIDE 5 MG TABLET (FP) PO SCH (10:54)
[2023-01-09] MEDS: CARVEDILOL 6.25 MG TABLET (FP) PO SCH ×2 (10:54→21:37)
[2023-01-09] MEDS: MEMANTINE HCL 5 MG TABLET (UD) PO SCH ×2 (10:54→21:37)
[2023-01-09] MEDS: QUEtiapine FUMARATE 25 MG TABLET PO SCH ×2 (10:54→21:37)
[2023-01-09 12:30] LABS: POTASSIUM 5.4 mmol/L (3.5-5.1)
[2023-01-09 12:32] LABS: ALBUMIN 3.3 g/dl (3.4-5.0); BLOOD UREA NITROGEN 61.1 mg/dL (7-18); CALCIUM 9.1 mg/dL (8.5-10.1)
[2023-01-09 12:36] LABS: CREATININE 3.1 mg/dL (0.55-1.3)
[2023-01-09 12:38] LABS: BILIRUBIN,TOTAL 0.7 mg/dL (0.2-1); TOT PROT 8.3 g/dl (6.4-8.2)
[2023-01-09] MEDS ORDERED: SODIUM ZIRCONIUM CYCLOSILICATE (LOKELMA) 5 GM PACKET PO SCH (13:15)
[2023-01-09] MEDS: FUROSEMIDE 40 MG TABLET (FP) PO SCH (16:29)
[2023-01-09] MEDS: APIXABAN 5 MG TABLET PO SCH (21:37)
[2023-01-09] MEDS: MIRTAZAPINE 15 MG TABLET (FP) PO SCH (21:37)
[2023-01-10] MEDS: FUROSEMIDE 40 MG TABLET (FP) PO SCH ×2 (05:53→14:55)
[2023-01-10] MEDS: INSULIN SLIDING SCALE (NOVOLOG) 1 VIAL SQ SCH ×4 (06:22→22:12)
[2023-01-10] MEDS: LEVOTHYROXINE NA 25 MCG TABLET (FP) PO SCH (06:23)
[2023-01-10 08:09] LABS: BASO % 0.7 % (0-2.0); EOS % 3.6 % (0-4.5); HEMATOCRIT 41.9 % (35.4-49); HEMOGLOBIN 13.7 GM/dL (11.7-16.9); LYMPH % 18.3 % (8-40); MCH 30.7 pg (25.7-33.7); MCHC 32.8 g/dl (32.0-35.9); MEAN CELL VOLUME 93.6 fl (80-96); MEAN PLT VOLUME 8.1 fl (7.5-11.1); MONO % 7.1 % (3.8-10.2); NEUT % 70.3 % (42.8-82.8); PLATELET COUNT 191 10^3/uL (134-434); RBC 4.47 M/mm3 (4.00-5.60); RDW 16.6 % (11.9-15.9); WHITE BLOOD COUNT 8.8 K/mm3 (4.0-10.0)
[2023-01-10 08:20] LABS: POTASSIUM 4.2 mmol/L (3.5-5.1)
[2023-01-10 08:24] LABS: ALBUMIN 3.3 g/dl (3.4-5.0); BLOOD UREA NITROGEN 73.3 mg/dL (7-18); CALCIUM 8.5 mg/dL (8.5-10.1); MAGNESIUM 2.6 mg/dL (1.8-2.4)
[2023-01-10 08:27] LABS: CREATININE 3.4 mg/dL (0.55-1.3); PHOSPHOROUS 3.6 mg/dL (2.5-4.9)
[2023-01-10 08:29] LABS: BILIRUBIN,TOTAL 0.6 mg/dL (0.2-1)
[2023-01-10] MEDS: CARVEDILOL 6.25 MG TABLET (FP) PO SCH ×2 (09:16→22:13)
[2023-01-10] MEDS: APIXABAN 5 MG TABLET PO SCH ×2 (09:17→22:13)
[2023-01-10] MEDS: PANTOPRAZOLE 40 MG TABLET PO SCH (09:17)
[2023-01-10] MEDS: ASPIRIN COATED 81 MG TABLET.EC PO SCH (09:17)
[2023-01-10] MEDS: MEMANTINE HCL 5 MG TABLET (UD) PO SCH ×2 (09:17→22:13)
[2023-01-10] MEDS: QUEtiapine FUMARATE 25 MG TABLET PO SCH ×2 (09:17→22:13)
[2023-01-10] MEDS: FINASTERIDE 5 MG TABLET (FP) PO SCH (09:17)
[2023-01-10] MEDS ORDERED: INSULIN (LEVEMIR) 100 UNITS/ML UNITS SQ SCH (10:00)
[2023-01-10] MEDS ORDERED: INSULIN (NOVOLOG) ASPART 100 UNITS/ML 10ML VIAL ONE (11:38)
[2023-01-10] MEDS: INSULIN (LEVEMIR) 100 UNITS/ML UNITS SQ SCH (22:12)
[2023-01-10] MEDS: MIRTAZAPINE 15 MG TABLET (FP) PO SCH (22:13)
[2023-01-11] MEDS: INSULIN SLIDING SCALE (NOVOLOG) 1 VIAL SQ SCH ×4 (06:10→21:51)
[2023-01-11] MEDS: LEVOTHYROXINE NA 25 MCG TABLET (FP) PO SCH (06:10)
[2023-01-11] MEDS: FUROSEMIDE 40 MG TABLET (FP) PO SCH (06:10)
[2023-01-11] MEDS: INSULIN (LEVEMIR) 100 UNITS/ML UNITS SQ SCH ×2 (06:13→21:50)
[2023-01-11] MEDS: FINASTERIDE 5 MG TABLET (FP) PO SCH (09:42)
[2023-01-11] MEDS: ASPIRIN COATED 81 MG TABLET.EC PO SCH (09:42)
[2023-01-11] MEDS: MEMANTINE HCL 5 MG TABLET (UD) PO SCH ×2 (09:42→21:48)
[2023-01-11] MEDS: PANTOPRAZOLE 40 MG TABLET PO SCH (09:43)
[2023-01-11] MEDS: QUEtiapine FUMARATE 25 MG TABLET PO SCH ×2 (09:43→21:48)
[2023-01-11] MEDS: CARVEDILOL 6.25 MG TABLET (FP) PO SCH ×2 (09:43→21:48)
[2023-01-11] MEDS: APIXABAN 5 MG TABLET PO SCH ×2 (09:43→21:48)
[2023-01-11] MEDS ORDERED: INSULIN (NOVOLOG) ASPART 100 UNITS/ML 10ML VIAL ONE ×2 (11:12→16:51)
[2023-01-11 11:33] LABS: BASO % 0.9 % (0-2.0); EOS % 2.7 % (0-4.5); HEMATOCRIT 41.6 % (35.4-49); HEMOGLOBIN 13.6 GM/dL (11.7-16.9); LYMPH % 15.4 % (8-40); MCH 30.8 pg (25.7-33.7); MCHC 32.8 g/dl (32.0-35.9); MEAN CELL VOLUME 93.9 fl (80-96); MEAN PLT VOLUME 7.8 fl (7.5-11.1); MONO % 8.3 % (3.8-10.2); NEUT % 72.7 % (42.8-82.8); PLATELET COUNT 194 10^3/uL (134-434); RBC 4.43 M/mm3 (4.00-5.60); RDW 16.3 % (11.9-15.9)
[2023-01-11] MEDS ORDERED: SODIUM CHLORIDE 250 ML IV STA (11:51)
[2023-01-11 12:52] LABS: ALBUMIN 3.4 g/dl (3.4-5.0); ALK PHOS 524 U/L (45-117); ANION GAP 11 MMOL/L (8-16); BILIRUBIN,TOTAL 0.6 mg/dL (0.2-1); BLOOD UREA NITROGEN 73.5 mg/dL (7-18); CALCIUM 9.3 mg/dL (8.5-10.1); CHLORIDE 103 mmol/L (98-107); CO2 25 mmol/L (21-32); CREATININE 3.5 mg/dL (0.55-1.3); GLUCOSE,RANDOM 208 mg/dL (74-106); POTASSIUM 3.9 mmol/L (3.5-5.1); SGOT/AST 53 U/L (15-37); SGPT/ALT 77 U/L (13-61); SODIUM 140 mmol/L (136-145); TOT PROT 8.2 g/dl (6.4-8.2)
[2023-01-11] MEDS: NORTHERA PO SCH ×2 (16:30→22:18)
[2023-01-11 18:20] LABS: EPI CELLS 19 /uL (0-25.1); HYALINE CASTS 0 /uL (0-3.1); PH,URINE 5.5 (5.0-8.0); URINE APPEARANCE CLEAR; URINE BACTERIA 1168 /uL (0-1359); URINE BILIRUBIN NEGATIVE (NEGATIVE); URINE COLOR YELLOW; URINE GLUCOSE (UA) TRACE (NEGATIVE); URINE KETONE NEGATIVE (NEGATIVE); URINE LEUK ESTERASE TRACE (NEGATIVE); URINE NITRITE NEGATIVE (NEGATIVE); URINE PROTEIN 1+ (NEGATIVE); URINE RBC 18 /uL (0-23.9); URINE WBC 10 /uL (0-25.8)
[2023-01-11] MEDS: MIRTAZAPINE 15 MG TABLET (FP) PO SCH (21:48)
[2023-01-12] MEDS: LEVOTHYROXINE NA 25 MCG TABLET (FP) PO SCH (06:02)
[2023-01-12] MEDS: INSULIN SLIDING SCALE (NOVOLOG) 1 VIAL SQ SCH ×4 (06:04→21:37)
[2023-01-12] MEDS: INSULIN (LEVEMIR) 100 UNITS/ML UNITS SQ SCH ×2 (07:18→21:45)
[2023-01-12] MEDS: FINASTERIDE 5 MG TABLET (FP) PO SCH (09:24)
[2023-01-12] MEDS: APIXABAN 5 MG TABLET PO SCH ×2 (09:24→21:32)
[2023-01-12] MEDS: ASPIRIN COATED 81 MG TABLET.EC PO SCH (09:24)
[2023-01-12] MEDS: MEMANTINE HCL 5 MG TABLET (UD) PO SCH ×2 (09:24→21:45)
[2023-01-12] MEDS: PANTOPRAZOLE 40 MG TABLET PO SCH (09:24)
[2023-01-12] MEDS: CARVEDILOL 6.25 MG TABLET (FP) PO SCH ×2 (09:24→21:31)
[2023-01-12] MEDS: QUEtiapine FUMARATE 25 MG TABLET PO SCH ×2 (09:24→21:32)
[2023-01-12] MEDS: NORTHERA PO SCH ×2 (09:24→21:31)
[2023-01-12] MEDS ORDERED: FUROSEMIDE 40 MG/4 ML INJECTABLE VIAL IVPUSH SCH (10:00)
[2023-01-12 11:56] LABS: HEMATOCRIT 41.4 % (35.4-49); HEMOGLOBIN 14.4 GM/dL (11.7-16.9); MCH 31.9 pg (25.7-33.7); MCHC 34.9 g/dl (32.0-35.9); MEAN CELL VOLUME 91.5 fl (80-96); MEAN PLT VOLUME 7.3 fl (7.5-11.1); PLATELET COUNT 195 10^3/uL (134-434); RBC 4.52 M/mm3 (4.00-5.60); RDW 16.6 % (11.9-15.9); WHITE BLOOD COUNT 8.3 K/mm3 (4.0-10.0)
[2023-01-12 12:47] LABS: BLOOD UREA NITROGEN 63.9 mg/dL (7-18); CALCIUM 8.8 mg/dL (8.5-10.1); CREATININE 3.2 mg/dL (0.55-1.3); POTASSIUM 3.7 mmol/L (3.5-5.1)
[2023-01-12 15:33] VITALS: RESP 18
[2023-01-12] MEDS: MIRTAZAPINE 15 MG TABLET (FP) PO SCH (21:32)
[2023-01-13] MEDS: INSULIN SLIDING SCALE (NOVOLOG) 1 VIAL SQ SCH ×4 (06:20→21:30)
[2023-01-13] MEDS: LEVOTHYROXINE NA 25 MCG TABLET (FP) PO SCH (06:21)
[2023-01-13] MEDS: INSULIN (LEVEMIR) 100 UNITS/ML UNITS SQ SCH ×2 (07:33→21:30)
[2023-01-13] MEDS: FUROSEMIDE 40 MG TABLET (FP) PO SCH (12:44)
[2023-01-13] MEDS: PANTOPRAZOLE 40 MG TABLET PO SCH (12:44)
[2023-01-13] MEDS: FINASTERIDE 5 MG TABLET (FP) PO SCH (12:44)
[2023-01-13] MEDS: NORTHERA PO SCH ×2 (12:45→21:20)
[2023-01-13] MEDS: ASPIRIN COATED 81 MG TABLET.EC PO SCH (12:45)
[2023-01-13] MEDS: QUEtiapine FUMARATE 25 MG TABLET PO SCH ×2 (12:45→21:20)
[2023-01-13] MEDS: CARVEDILOL 6.25 MG TABLET (FP) PO SCH ×2 (12:45→21:21)
[2023-01-13] MEDS: MEMANTINE HCL 5 MG TABLET (UD) PO SCH ×2 (12:45→21:21)
[2023-01-13] MEDS: APIXABAN 5 MG TABLET PO SCH ×2 (12:45→21:21)
[2023-01-13] MEDS ORDERED: INSULIN (NOVOLOG) ASPART 100 UNITS/ML 10ML VIAL ONE ×3 (16:14→21:29)
[2023-01-13] MEDS ORDERED: INSULIN (LEVEMIR) 100 UNITS/ML UNITS SQ ONE (16:32)
[2023-01-13] MEDS: MIRTAZAPINE 15 MG TABLET (FP) PO SCH (21:21)
[2023-01-14] MEDS ORDERED: INSULIN (NOVOLOG) ASPART 100 UNITS/ML 10ML VIAL ONE ×2 (06:14→12:11)
[2023-01-14] MEDS: INSULIN (LEVEMIR) 100 UNITS/ML UNITS SQ SCH (06:29)
[2023-01-14] MEDS: LEVOTHYROXINE NA 25 MCG TABLET (FP) PO SCH (06:31)
[2023-01-14] MEDS: INSULIN SLIDING SCALE (NOVOLOG) 1 VIAL SQ SCH ×2 (06:32→12:22)
[2023-01-14] MEDS ORDERED: INSULIN (LEVEMIR) 100 UNITS/ML UNITS SQ SCH ×2 (08:16→08:17)
[2023-01-14] MEDS: FINASTERIDE 5 MG TABLET (FP) PO SCH (10:30)
[2023-01-14] MEDS: MEMANTINE HCL 5 MG TABLET (UD) PO SCH (10:30)
[2023-01-14] MEDS: APIXABAN 5 MG TABLET PO SCH (10:30)
[2023-01-14] MEDS: QUEtiapine FUMARATE 25 MG TABLET PO SCH (10:30)
[2023-01-14] MEDS: FUROSEMIDE 40 MG TABLET (FP) PO SCH (10:30)
[2023-01-14] MEDS: CARVEDILOL 6.25 MG TABLET (FP) PO SCH (10:30)
[2023-01-14] MEDS: PANTOPRAZOLE 40 MG TABLET PO SCH (10:30)
[2023-01-14] MEDS: NORTHERA PO SCH (10:31)
[2023-01-14] MEDS: ASPIRIN COATED 81 MG TABLET.EC PO SCH (10:31)
[2023-01-14 16:36] VITALS: BP 139/75; PULSE 63; TEMP 98.5
== END 2023-01-14 17:55 | disposition home or self-care (01) | DRG 312 ==
LOC: JER 19:30 → JERBED 22:48 → J4W 01-09 02:39 → OBSVTOIN 01-10 11:23
PROVIDERS: ADMIT Internal Medicine; ATTEND Family Medicine
DX: I95.1 Orthostatic hypotension (principal); I50.21 Acute systolic (congestive) heart failure; G90.3 Multi-system degeneration of the autonomic nervous system; N39.0 Urinary tract infection, site not specified; I13.0 Hypertensive heart and chronic kidney disease with heart failure and stage 1 through stage 4 chronic kidney disease, or unspecified chronic kidney disease; I42.0 Dilated cardiomyopathy; R55 Syncope and collapse; N18.30 Chronic kidney disease, stage 3 unspecified; E78.5 Hyperlipidemia, unspecified; E11.9 Type 2 diabetes mellitus without complications; F03.90 Unspecified dementia, unspecified severity, without behavioral disturbance, psychotic disturbance, mood disturbance, and anxiety; I25.119 Atherosclerotic heart disease of native coronary artery with unspecified angina pectoris; Z95.5 Presence of coronary angioplasty implant and graft; E03.9 Hypothyroidism, unspecified; R74.01 Elevation of levels of liver transaminase levels; K21.9 Gastro-esophageal reflux disease without esophagitis; E11.40 Type 2 diabetes mellitus with diabetic neuropathy, unspecified; E11.51 Type 2 diabetes mellitus with diabetic peripheral angiopathy without gangrene; E11.22 Type 2 diabetes mellitus with diabetic chronic kidney disease; E11.65 Type 2 diabetes mellitus with hyperglycemia; E87.5 Hyperkalemia; Z68.21 Body mass index [BMI] 21.0-21.9, adult
CPT/HCPCS: 0241U-QW; 36415; 70450-TC; 71045-TC-FY; 72125-TC; 72170-TC-FY; 76700-TC; 80048; 80053; 81003; 82550; 82784; 82962; 82977; 83036; 83615; 83735; 84100; 84153; 84155; 84165; 84439; 84443; 84484; 85025; 85027; 85610; 85730; 86301; 86850; 86900; 86901; 87040; 87086; 87186; 93005; 93010; 93306-TC; 97116-GP; 97162-GP; 99285-25; G0378